=== PATIENT | male | born 1995 | race African-American/Black ===

== ENCOUNTER 2023-06-04 14:22 | Inpatient (IN) | payer BC, MEDICAID, SELFPAY ==
[2023-06-04 14:26] VITALS: BP 123/77; PULSE 75; RESP 17; TEMP 36.8; O2SAT 99
[2023-06-04 14:34] VITALS: BMI 38.0
--- NOTE | 2023-06-04 15:17 | PC.NURSE ---
PT WAS A DIRECT ADMIT FROM [facility] IN [place]. PT HAS SI WITH PLAN TO HANG SELF. PT STATES THAT HE IS ALSO HAVING THOUGHTS OF HURTING OTHER PEOPLE WITH NO PERSON SPECIFIC IN MIND. PT CURRENTLY ENDORSES AH/VH STATING I HEAR PEOPLE AND SEE SHADOW FIGURES. PT STATES THAT HE CANNOT MAKE OUT THE WORDS OF THE VOICES HE HEARS. PT STATES THAT HE WANTS REHAB FOR HIS DRINKING STATING HIS LAST DRINK WAS 06/02/23. HOWEVER HIS PREVIOUS HOSPITAL STATED THAT HE DID NOT HAVE ANY ALCOHOL IN HIS SYSTEM.
[2023-06-04] MEDS: hyDROXYzine 25 mg Capsule 50 MG PO (16:46)
[2023-06-04 20:23] VITALS: BP 107/61; PULSE 93; RESP 16; TEMP 36.9; O2SAT 97
[2023-06-04] MEDS: OLANZapine 10 mg TABLET PO (20:26)
[2023-06-04] MEDS: doxepin 25 mg Capsule PO (20:26)
[2023-06-05 06:00] VITALS: BP 124/77; PULSE 70; RESP 15; O2SAT 98
[2023-06-05] MEDS: sertraline 50 mg Tablet PO (08:29)
--- NOTE | 2023-06-05 09:31 | PC.NURSE ---
Patient states that he is not good . Patient reports SI, HI and severe depression. Patient denies plan to commit suicide or homicide at this time. Patient also reports AVH, hearing conversations and seeing people.
[2023-06-05] MEDS: acetaminophen 325 mg Tablet 650 MG PO (11:03)
[2023-06-05] MEDS: hyDROXYzine 25 mg Capsule 50 MG PO (13:44)
[2023-06-05] MEDS: docusate sodium 100 mg Capsule PO (13:44)
--- NOTE | 2023-06-05 13:45 | PC.NURSE ---
Patient reporting anxiety 10/10. Patient is unsure of the cause. Patient is visibly agitated. Administered 50mg Vistaril to patient. Patient pacing olivares to help alleviate anxiety.
[2023-06-05 14:00] VITALS: BP 145/83; PULSE 81; RESP 20; TEMP 36.9; O2SAT 98
[2023-06-05] MEDS: ibuprofen 600 mg Tablet PO (16:33)
--- NOTE | 2023-06-05 16:40 | W.PM.NPUH&PS ---
Providers/Chief Complaint Admitting Physician: Avelino Owusu MD Chief Complaint: SI/HI HPI NPU History of Present Illness Galo Jaime is a 27 year old -Kaz[place] male who presented to the emergency department in [facility] via ambulance with reports of having thoughts of killing himself. He had stated that he was thinking about wrapping a belt around his neck in order to end his life. He had reported that he had been hearing voices for several days and stated that he had had severe depression. Patient was transferred to the neuropsychiatric unit for further evaluation and treatment in [facility]. The patient had reported that he had been initially receiving treatment in [place]. He reports that approximately 1 month ago he had spoken with his outpatient provider about receiving help for his 2 pint per day use of alcohol for the past few years. The patient was referred to a [facility]-based program in [place] known as the [facility] and upon arriving there he reported that he was prevented from taking his medications to combat depression and auditory hallucinations. The patient had reported that the hallucinations had began several years ago after he had used methamphetamine for an extended period of time. He had stated that he had been off methamphetamine but the auditory hallucinations persisted. He had also endorsed having periods of paranoia as well. He states that he had relapsed in the last 6 months 1 time but had been drinking continuously for several years. The patient had reported that he had been hospitalized another time last week in [place] and was sent to another facility called [facility] which once again had prohibited the patient from receiving his medications. Patient had reported that he had left both of these he[facility]-based facilities and had stated that he needed to get help for his depression. He endorses continued suicidal ideation and reports that he continues to hear voices telling him to run away. He and also endorses paranoia. He reports sleep continuity disruption along with hypersomnia and low energy. He did not endorse any clear history of manic symptoms. He had endorsed some feelings of worthlessness. He had reported a past history of alcohol related withdrawal symptoms. Inpatient psychiatric history patient reports 3 hospitalizations in the past. He had endorsed a past history of suicide attempts. Outpatient psychiatric history: Patient had been receiving clinic through the [facility] in [facility] with previous trials on variety of medications including Seroquel, Latuda, Zoloft, and Zyprexa. Drug and alcohol history: He has a past history of drug and alcohol treatment on an outpatient basis but only recently on an inpatient basis while had a [facility]-based program over the last month. He has a history of alcohol related withdrawal symptoms. Medical history: Hypertension Surgeries: None Allergies: No known drug allergies Current medications: Doxepin 25 mg at night, Latuda 40 mg with food daily, olanzapine 10 mg at night, Zoloft 50 mg daily Legal history: None Social history: Patient was born in [facility] and raised by his biological parents. He is the youngest of 6 children 3 of whom were adopted. He had reported no history of sexual physical or emotional abuse. He had graduated from high school and did not attend college. He had worked in construction previously. He had had a history of problems with alcohol consumption beginning at the age of 23. He had reported occasional marijuana use in the past. He reports that his mother had of CHF in 2016 and that his father had in July 2022. He reports living with his extended family in [place] but reports that he had been most recently residing in [facility] in [facility] for less than a week. He has no children and has never been . history: None Meds NPU Home Medications Medication Instructions Recorded Confirmed Last Taken Type doxepin 25 mg capsule 25 mg PO BEDTIME 06/04/23 06/04/23 Unknown History lurasidone 40 mg tablet (Latuda) 40 mg PO QAM 06/04/23 06/04/23 Unknown History olanzapine 10 mg tablet 10 mg PO BEDTIME 06/04/23 06/04/23 Unknown History sertraline 50 mg tablet 50 mg PO DAILY 06/04/23 06/04/23 Unknown History Allergies Allergy/AdvReac Type Severity Reaction Status Date / Time No Known Allergies Allergy Verified 06/04/23 14:42 Mental Status Exam MSE Comments: He is a pleasant -Kaz[place] male who appeared his stated age with moderate distress. His hygiene was fair. There was no evidence of any abnormal involuntary motor movements tics or tremors appreciated. His speech was normal in regards to rate rhythm and prosody. His mood was described as depressed. His affect was restricted in range and mood-congruent. His thought process was linear logical and goal-directed. His thought content showed evidence of suicidal ideation with no active homicidal ideation reported. He endorsed auditory hallucinations and denied any visual hallucinations. He did at times appear to be responding to internal stimuli. There is no clear evidence of delusional thinking. His insight was poor. His judgment was poor. His impulse control appeared limited at this time. 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 ?1. Encourage individual, group and milieu therapy. ?2.Recommend sober living treatment at the highest level of care to which the patient is willing to commit. 3.Continue q-15 minute checks for safety.? 4. CIWA protocol 5. Restart previous medications including latuda, zyprexa and zoloft Involuntary Hold Information 96 Hour Hold: 96 Hour Involuntary Admission: No Attestations NPU Medical Necessity Statement*: Inpatient hospitalization is medically necessary and deemed to be the clinically appropriate intervention at this time. The patient will be monitored and medications will be initiated while making changes as indicated. Patient will be hospitalized for at least 2 midnights. The patient's likely length of stay will be 5 to 7 days. Coding Level of Care Code Acute Code for Chg Fwd Diagnoses Unspecified psychosis F29 Depression, unspecified F32.A Alcohol abuse F10.10 Methamphetamine abuse F15.10
--- NOTE | 2023-06-05 16:54 | PC.NURSE ---
added wrong patient vitals
[2023-06-05] MEDS: lurasidone 20 mg Tablet 40 MG PO (18:08)
[2023-06-05] MEDS: OLANZapine 5 mg ODT PO (18:34)
--- NOTE | 2023-06-05 18:35 | PC.NURSE ---
Patient reporting severe anxiety, attempts at coping were unsuccessful. Administered Zyprexa 5mg PO ODT to patient. Patient now resting in bed.
[2023-06-05] MEDS: OLANZapine 10 mg TABLET PO (20:51)
[2023-06-05] MEDS: doxepin 25 mg Capsule PO (20:51)
[2023-06-05 20:58] VITALS: BP 102/58; PULSE 82; RESP 17; TEMP 36.7; O2SAT 97
[2023-06-06 06:00] VITALS: BP 115/64; PULSE 84; RESP 16; O2SAT 98
[2023-06-06] MEDS: sertraline 50 mg Tablet PO (09:00)
--- NOTE | 2023-06-06 09:11 | PC.NURSE ---
During morning assessment, patient reporting mild depression related to the passing of his father in July of 2022. Patient denies thoughts of suicide, homicide, and anxiety. Patient sitting on bed, no distress noted.
[2023-06-06 14:00] VITALS: BP 135/74; PULSE 74; RESP 16; TEMP 36.8; O2SAT 93
[2023-06-06] MEDS: hyDROXYzine 25 mg Capsule 50 MG PO (15:10)
--- NOTE | 2023-06-06 15:40 | P.NPUPN_ITS ---
Subjective NPU Subjective: 27-year-old male admitted with psychosis and depression along with alcohol abuse and a past history of methamphetamine abuse. Patient had reported continued depressed mood. He had reported that he could not go to a rehabilitation facility that had provided no help for treatment of his psychosis and depression as the previous facility had demanded that the patient be placed off of medications. He had reported continued suicidal thoughts and depression. He had reported that he could continue to hear voices. He had expressed concern about weight gain associated with Zyprexa and was agreeable and consolidation of his antipsychotic medications. He had been friendly and redirectable on the milieu. He had reported diminished concentration. He reported no cravings for alcohol. He had reported some feelings of hopelessness at times. He had reported an extended history of difficulties with maintaining employment and managing his alcohol consumption. He had reported no withdrawal symptoms from alcohol today. Mental Status Exam MSE Comments: He is a pleasant -[place]old[place] male who appeared his stated age with moderate distress. His hygiene was fair. There was no evidence of any abnormal involuntary motor movements tics or tremors appreciated. His speech was normal in regards to rate rhythm and prosody. His mood was described as depressed. His affect remains restricted in range and mood-congruent. His thought process was linear logical and goal-directed. His thought content showed evidence of suicidal ideation with no active homicidal ideation reported. He endorsed command auditory hallucinations and denied any visual hallucinations. He did at times appear to be responding to internal stimuli. There is no clear evidence of delusional thinking. His insight was poor. His judgment was poor. His impulse control appeared limited at this time. 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 ?1. Encourage individual, group and milieu therapy. ?2.Recommend sober living treatment at the highest level of care to which the patient is willing to commit. 3.Continue q-15 minute checks for safety.? 4. CIWA protocol 5. Continue Zoloft to 50 mg daily, decrease Zyprexa to 7.5 mg at night and increase Latuda to 60 mg at dinnertime. 6. Seeking inpatient rehabilitation for addiction closer to the patient's area of residence. Involuntary Hold Information 96 Hour Hold: 96 Hour Involuntary Admission: No Attestations NPU Medical Necessity Statement*: Inpatient hospitalization is medically necessary and deemed to be the clinically appropriate intervention at this time. The patient will be monitored and medications will be initiated while making changes as indicated. The patient's likely length of stay will be 5 to 7 days. Coding Level of Care Code Acute Code for Chg Fwd Diagnoses Unspecified psychosis F29 Depression, unspecified F32.A Alcohol abuse F10.10 Methamphetamine abuse F15.10
[2023-06-06] MEDS: acetaminophen 325 mg Tablet 650 MG PO (16:28)
[2023-06-06] MEDS: OLANZapine 5 mg ODT PO (17:56)
[2023-06-06] MEDS: lurasidone 20 mg Tablet 60 MG PO (17:57)
[2023-06-06] MEDS: ibuprofen 600 mg Tablet PO (19:34)
[2023-06-06 20:06] VITALS: BP 138/74; PULSE 73; RESP 16; TEMP 36.5; O2SAT 96
[2023-06-06] MEDS: OLANZapine 5 mg TABLET 7.5 MG PO (20:43)
[2023-06-06] MEDS: doxepin 25 mg Capsule PO (20:43)
--- NOTE | 2023-06-07 04:09 | PC.NURSE ---
Isidoro isolating in his room this shift and slept the entire shift. Denies SI/HI/AVH. Patient is meal and medication compliant. Patient verbalized that he would contact staff if he has SI.
[2023-06-07 06:00] VITALS: BP 113/73; PULSE 60; RESP 16; O2SAT 97
[2023-06-07] MEDS: sertraline 50 mg Tablet PO (08:53)
[2023-06-07] MEDS: docusate sodium 100 mg Capsule PO (09:10)
[2023-06-07] MEDS: ibuprofen 600 mg Tablet PO (09:31)
--- NOTE | 2023-06-07 09:51 | PC.NURSE ---
Patient endorses si and hi. He states he currently has no plan and that his hi is not directed at any particular person. Patient endorses avh as well. He says he is seeing shadows still and that he hears voices telling him to hurt himself. Patient contracted for safety, agreed to let staff know if his thoughts or anxiety increased. Cooperative with assessment.
--- NOTE | 2023-06-07 13:12 | W.PM.NPUPNS ---
Subjective NPU Subjective: 27-year-old male admitted with psychosis and depression along with alcohol abuse and a past history of methamphetamine abuse. Patient had reported continued depressed mood. He had continued to report depressed mood. He had continued to hear voices. He reported that he had fleeting thoughts of suicide but was starting to feel better. He had reported some difficulties with concentration. He reported no cravings for alcohol currently. He had reported low energy. Patient reported struggles with increased appetite and weight gain with the initiation of Zyprexa and was motivated to consolidate his psychotropic medications if possible. Mental Status Exam MSE Comments: He is a pleasant -[place]ban[place] male who appeared his stated age with mild to moderate distress. His hygiene was fair. There was no evidence of any abnormal involuntary motor movements tics or tremors appreciated. His speech was normal in regards to rate rhythm and prosody. His mood was described as a little better. His affect remains restricted in range and mood incongruent. His thought process was linear logical and goal-directed. His thought content showed evidence of suicidal ideation with no active homicidal ideation reported. He endorsed auditory hallucinations that he described as less intense. He did at times appear to be responding to internal stimuli. There is no clear evidence of delusional thinking. His insight was improving. His judgment was poor. His impulse control appeared limited at this time. 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 ?1. Encourage individual, group and milieu therapy. ?2.Recommend sober living treatment at the highest level of care to which the patient is willing to commit. 3.Continue q-15 minute checks for safety.? 4. CIWA protocol 5. Increase Zoloft to 75 mg daily, decrease Zyprexa to 5 mg at night and increase Latuda to 60 mg at dinnertime. 6. Seeking inpatient rehabilitation for addiction closer to the patient's area of residence. Involuntary Hold Information 96 Hour Hold: 96 Hour Involuntary Admission: No Attestations NPU Medical Necessity Statement*: Inpatient hospitalization is medically necessary and deemed to be the clinically appropriate intervention at this time. The patient will be monitored and medications will be initiated while making changes as indicated. The patient's likely length of stay will be 5 to 7 days. Coding Level of Care Code Acute Code for Chg Fwd Diagnoses Unspecified psychosis F29 Depression, unspecified F32.A Alcohol abuse F10.10 Methamphetamine abuse F15.10
[2023-06-07] MEDS: hyDROXYzine 25 mg Capsule 50 MG PO ×2 (13:27→19:12)
[2023-06-07 13:38] VITALS: BP 166/83; PULSE 95; RESP 17; TEMP 37.1; O2SAT 96
[2023-06-07] MEDS: OLANZapine 5 mg ODT PO (16:12)
[2023-06-07] MEDS: acetaminophen 325 mg Tablet 650 MG PO (16:12)
--- NOTE | 2023-06-07 16:14 | PC.NURSE ---
NIKOS Dough Molder Hand- Patient states he is getting really worked up and has exhibited this through beginning to pace faster and clench his fists. When asked what he was getting worked up about he stated that he was just thinking about decisions he had made and people that were following him. However, he was unable to elaborate further. Patient was administered zyprexa 5mg odt.
[2023-06-07] MEDS: lurasidone 20 mg Tablet 60 MG PO (17:52)
[2023-06-07] MEDS: propranolol 20 mg Tablet 10 MG PO (19:11)
[2023-06-07] MEDS: doxepin 25 mg Capsule PO (19:12)
[2023-06-07] MEDS: OLANZapine 5 mg TABLET PO (19:12)
[2023-06-07] MEDS: trazodone 50 mg Tablet PO (19:12)
[2023-06-07 19:51] VITALS: BP 152/98; PULSE 102; RESP 18; TEMP 37; O2SAT 97
[2023-06-08 06:00] VITALS: BP 103/65; PULSE 62; RESP 18; TEMP 37.2; O2SAT 92
[2023-06-08] MEDS: propranolol 20 mg Tablet 10 MG PO ×2 (08:30→20:15)
[2023-06-08] MEDS: sertraline 50 mg Tablet 75 MG PO (08:30)
[2023-06-08] MEDS: acetaminophen 325 mg Tablet 650 MG PO (09:17)
--- NOTE | 2023-06-08 13:22 | P.NPUPN_ITS ---
Subjective NPU Subjective: 27-year-old male admitted with psychosis and depression along with alcohol abuse and a past history of methamphetamine abuse. He had reported difficulties falling asleep with this reduction in olanzapine. He had reported that he continued to feel paranoid. He reported no cravings for alcohol. He reports continued depression. Patient reported no side effects from the Latuda. He had reported that doxepin had previously helped him with sleep. He had reported having chronic problems with anxiety including chronic worry and difficulties with being in crowds. Staff notes the patient was friendly and cooperative on the milieu. He had reported some difficulties with concentration. Mental Status Exam MSE Comments: He is a pleasant -[place] Islander male who appeared his stated age in moderate distress. His hygiene was fair. There was no evidence of any abnormal involuntary motor movements tics or tremors appreciated. His speech was normal in regards to rate rhythm and prosody except for brief periods of increased latency in speech. His mood was described as still depressed. His affect remains restricted in range and mood congruent. His thought process was linear logical and goal-directed. His thought content showed evidence of suicidal ideation with no active homicidal ideation reported. He continued to endorse auditory hallucinations that was not command in nature. He did at times appear to be responding to internal stimuli. There is no clear evidence of delusional thinking. His insight was improving. His judgment was poor. His impulse control appeared limited at this time. 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 ?1. Encourage individual, group and milieu therapy. ?2.Recommend sober living treatment at the highest level of care to which the patient is willing to commit. 3.Continue q-15 minute checks for safety.? 4. CIWA protocol 5. Increase Zoloft to 100 mg daily, decrease Zyprexa to 5 mg at night and increase Latuda to 60 mg at dinnertime. 6. Seeking inpatient rehabilitation for addiction closer to the patient's area of residence. Involuntary Hold Information 96 Hour Hold: 96 Hour Involuntary Admission: No Attestations NPU Medical Necessity Statement*: Inpatient hospitalization is medically necessary and deemed to be the clinically appropriate intervention at this time. The patient will be monitored and medications will be initiated while making changes as indicated. The patient's likely length of stay will be 5 to 7 days. Coding Level of Care Code Acute Code for Chg Fwd Diagnoses Unspecified psychosis F29 Depression, unspecified F32.A Alcohol abuse F10.10 Methamphetamine abuse F15.10
[2023-06-08 14:00] VITALS: BP 142/81; PULSE 90; RESP 17; TEMP 37; O2SAT 99
[2023-06-08] MEDS: hyDROXYzine 25 mg Capsule 50 MG PO (15:54)
[2023-06-08] MEDS: lurasidone 20 mg Tablet 60 MG PO (18:06)
[2023-06-08 19:39] VITALS: BP 112/72; PULSE 88; RESP 18; TEMP 37.1; O2SAT 92
[2023-06-08] MEDS: OLANZapine 5 mg TABLET PO (20:15)
[2023-06-08] MEDS: doxepin 25 mg Capsule PO (20:15)
[2023-06-09 06:00] VITALS: BP 112/75; PULSE 70; RESP 16; O2SAT 94
[2023-06-09] MEDS: propranolol 20 mg Tablet 10 MG PO ×2 (08:07→20:41)
[2023-06-09] MEDS: sertraline 50 mg Tablet 100 MG PO (08:07)
[2023-06-09 14:00] VITALS: BP 118/72; PULSE 59; RESP 16; TEMP 36.6; O2SAT 99
--- NOTE | 2023-06-09 14:44 | W.PM.NPUPNS ---
Subjective NPU Subjective: 27-year-old male admitted with psychosis and depression along with alcohol abuse and a past history of methamphetamine abuse. Patient had reported improved sleep despite a reduction in olanzapine to 5 mg at night. He had reported feeling less paranoid but continued to report feeling depressed. He had reported that the voices were better controlled. He had reported cravings for alcohol and denied any past history of medication trials to manage cravings. The patient had continued to show efforts to find an inpatient substance abuse facility that took his insurance. He had acknowledged that a facility that rejected his psychotropic medications would not be a good fit for him. He had reported a long history of having problems with managing his anxiety as well. He had reported infrequent suicidal thoughts now. Mental Status Exam MSE Comments: He is a pleasant -Jamaican male who appeared his stated age in moderate distress. His hygiene was fair. There was no evidence of any abnormal involuntary motor movements tics or tremors appreciated. His speech was normal in regards to rate rhythm and prosody with no latency of speech noted. His mood was described as depressed. His affect remains restricted in range and mood congruent. His thought process was linear logical and goal-directed. His thought content showed evidence of suicidal ideation with no active homicidal ideation reported. He reported infrequent auditory hallucinations that he described as better controlled. He did at times appear to be responding to internal stimuli. There is no clear evidence of delusional thinking. His insight was improving. His judgment was poor. His impulse control appeared limited at this time. 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 ?1. Encourage individual, group and milieu therapy. ?2.Recommend sober living treatment at the highest level of care to which the patient is willing to commit. 3.Continue q-15 minute checks for safety.? 4. CIWA protocol 5. Continue Zoloft to 100 mg daily, continue Zyprexa to 5 mg at night and continue Latuda at 60 mg at dinnertime. 6. Seeking inpatient rehabilitation for addiction closer to the patient's area of residence. 7. Add Naltrexone 50mg daily to target alcohol cravings with possible use of vivitrol. Involuntary Hold Information 96 Hour Hold: 96 Hour Involuntary Admission: No Attestations NPU Medical Necessity Statement*: Inpatient hospitalization is medically necessary and deemed to be the clinically appropriate intervention at this time. The patient will be monitored and medications will be initiated while making changes as indicated. The patient's likely length of stay will be 5 to 7 days. Coding Level of Care Code Acute Code for Chg Fwd Diagnoses Unspecified psychosis F29 Depression, unspecified F32.A Alcohol abuse F10.10 Methamphetamine abuse F15.10
[2023-06-09] MEDS: naltrexone hcl 50 mg Tablet PO (15:27)
[2023-06-09 16:12] LABS: SARS Covid-2 Antigen Negative (Negative)
[2023-06-09 17:00] LABS: Amphetamines Screen Urine Negative (Negative); Barbiturates Screen Urine Negative (Negative); Benzodiazepines Screen Urine Positive (Negative); Cocaine Screen Urine Negative (Negative); Opiate Screen Urine Negative (Negative); PCP Screen Urine Negative (Negative); THC Screen Urine Negative (Negative)
[2023-06-09] MEDS: hyDROXYzine 25 mg Capsule 50 MG PO (17:09)
[2023-06-09] MEDS: lurasidone 20 mg Tablet 60 MG PO (18:21)
[2023-06-09 19:46] VITALS: BP 122/66; PULSE 67; RESP 17; TEMP 37.2; O2SAT 91
[2023-06-09] MEDS: doxepin 25 mg Capsule PO (20:41)
[2023-06-09] MEDS: OLANZapine 5 mg TABLET PO (20:42)
[2023-06-10 06:00] VITALS: BP 109/69; PULSE 69; RESP 16; O2SAT 98
[2023-06-10] MEDS: sertraline 50 mg Tablet 100 MG PO (08:19)
[2023-06-10] MEDS: naltrexone hcl 50 mg Tablet PO (08:19)
[2023-06-10] MEDS: propranolol 20 mg Tablet 10 MG PO ×2 (08:19→21:22)
[2023-06-10 13:58] VITALS: BP 107/63; PULSE 62; RESP 15; TEMP 36.9; O2SAT 97
[2023-06-10] MEDS: hyDROXYzine 25 mg Capsule 50 MG PO (15:13)
[2023-06-10] MEDS: acetaminophen 325 mg Tablet 650 MG PO (15:13)
--- NOTE | 2023-06-10 16:15 | P.NPUPN_ITS ---
Subjective NPU Subjective: 27-year-old male admitted with psychosis and depression along with alcohol abuse and a past history of methamphetamine abuse. Patient had reported improved sleep despite a reduction in olanzapine to 5 mg at night. He had expressed desire to enter into an alcohol abuse program near his home. He had reported no side effects from the initiation of naltrexone. He reported no worsening sleep or frequent awakenings at night with the Zyprexa at 5 mg. He remained motivated to reduce this medication. He reported no side effects from the Latuda at this time. He had reported depressed mood but stated that he was starting to feel better. He had reported continued cravings for alcohol. The patient reported that his hallucinations were better controlled today. Mental Status Exam MSE Comments: He is a pleasant -Bulgarian male who appeared his stated age in mild distress. His hygiene was fair. There was no evidence of any abnormal involuntary motor movements tics or tremors appreciated. His speech was normal in regards to rate rhythm and prosody with no latency of speech noted. His mood was described as depressed. His affect remains restricted in range and mood congruent. His thought process was linear logical and goal-directed. His thought content showed no evidence of suicidal ideation with no active homicidal ideation reported. He did not appear to be responding to internal stimuli today. He had reported that the voices were less frequent and quiet. There is no clear evidence of delusional thinking. His insight was improving. His judgment was poor. His impulse control appeared limited at this time. 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 ?1. Encourage individual, group and milieu therapy. ?2.Recommend sober living treatment at the highest level of care to which the patient is willing to commit. 3.Continue q-15 minute checks for safety.? 4. CIWA protocol 5. Continue Zoloft to 100 mg daily, Reduce zyprexa to 2.5mg at night and increase latuda to 80 mg at dinnertime. 6. Seeking inpatient rehabilitation for addiction closer to the patient's area of residence. 7. Continue Naltrexone 50mg daily to target alcohol cravings with possible use of vivitrol. Involuntary Hold Information 96 Hour Hold: 96 Hour Involuntary Admission: No Attestations NPU Medical Necessity Statement*: Inpatient hospitalization is medically necessary and deemed to be the clinically appropriate intervention at this time. The patient will be monitored and medications will be initiated while making changes as indicated. The patient's likely length of stay will be 5 to 7 days. Coding Level of Care Code Acute Code for Chg Fwd Diagnoses Unspecified psychosis F29 Depression, unspecified F32.A Alcohol abuse F10.10 Methamphetamine abuse F15.10
[2023-06-10] MEDS: lurasidone 20 mg Tablet 60 MG PO (17:39)
[2023-06-10 21:18] VITALS: BP 109/63; PULSE 85; RESP 18; TEMP 36.7; O2SAT 96
[2023-06-10] MEDS: OLANZapine 5 mg TABLET 2.5 MG PO (21:21)
[2023-06-10] MEDS: trazodone 50 mg Tablet PO (21:21)
[2023-06-10] MEDS: doxepin 25 mg Capsule PO (21:22)
[2023-06-11 06:00] VITALS: BP 99/63; PULSE 54; RESP 20; TEMP 36.7; O2SAT 97
[2023-06-11] MEDS: sertraline 50 mg Tablet 100 MG PO (08:55)
[2023-06-11] MEDS: naltrexone hcl 50 mg Tablet PO (08:55)
[2023-06-11] MEDS: propranolol 20 mg Tablet 10 MG PO (08:55)
[2023-06-11] MEDS: hyDROXYzine 25 mg Capsule 50 MG PO ×2 (09:29→15:24)
[2023-06-11] MEDS: acetaminophen 325 mg Tablet 650 MG PO ×2 (09:29→18:11)
[2023-06-11 13:36] VITALS: BP 105/57; PULSE 89; RESP 17; TEMP 37.1; O2SAT 96
[2023-06-11] MEDS: lurasidone 20 mg Tablet 60 MG PO (17:24)
--- NOTE | 2023-06-11 17:35 | PC.NURSE ---
Pt refused to take a cup of coffee from a [employer], he stated that yesterday she gave me a cup that made me have a headache . This nurse poured a new cup from the same pot and gave it to the pt. Pt is still showing signs of being paranoid.
[2023-06-11] MEDS: lurasidone 20 mg Tablet PO (18:12)
[2023-06-11] MEDS: OLANZapine 5 mg TABLET 2.5 MG PO (21:19)
[2023-06-11] MEDS: doxepin 25 mg Capsule PO (21:19)
[2023-06-11] MEDS: trazodone 50 mg Tablet PO (21:19)
--- NOTE | 2023-06-11 21:22 | P.NPUPN_ITS ---
Subjective NPU Subjective: 27-year-old male admitted with psychosis and depression along with alcohol abuse and a past history of methamphetamine abuse. Patient reports improved sleep, no insomnia with reduction of zyprexa. Patient agreeable to [facility]ctor based substance abuse treatment program through [facility]. Patient reports some alcohol cravings but reports feeling better. He was more social and acknowledged feeling less paranoid and less depressed. No manic symptoms endorsed. Mental Status Exam MSE Comments: He is a pleasant -Yemeni male who appeared his stated age in mild distress. His hygiene was fair. There was no evidence of any abnormal involuntary motor movements tics or tremors appreciated. His speech was normal in regards to rate rhythm and prosody with no latency of speech noted. His mood was described as bettre. His affect appears slightly less flat. His thought process was linear logical and goal-directed. His thought content showed no evidence of suicidal ideation with no active homicidal ideation reported. He did not appear to be responding to internal stimuli today. He had reported no auditory or visual hallucinations. There is no clear evidence of delusional thinking. His insight was improving. His judgment was fair. His impulse control appeared fair at this time. 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 ?1. Encourage individual, group and milieu therapy. ?2.Recommend sober living treatment at the highest level of care to which the patient is willing to commit. 3.Continue q-15 minute checks for safety.? 4. CIWA protocol 5. Continue Zoloft to 100 mg daily, Reduce zyprexa to 2.5mg at night and increase latuda to 80 mg at dinnertime. 6. Seeking inpatient rehabilitation for addiction closer to the patient's area of residence.-likely discharge tommorow. 7. Continue Naltrexone 50mg daily to target alcohol cravings with possible use of vivitrol. Involuntary Hold Information 96 Hour Hold: 96 Hour Involuntary Admission: No Attestations NPU Medical Necessity Statement*: Inpatient hospitalization is medically necessary and deemed to be the clinically appropriate intervention at this time. The patient will be monitored and medications will be initiated while making changes as indicated. The patient's likely length of stay will be 1-2 days. Coding Level of Care Code Acute Code for Chg Fwd Diagnoses Unspecified psychosis F29 Depression, unspecified F32.A Alcohol abuse F10.10 Methamphetamine abuse F15.10
[2023-06-11 21:34] VITALS: BP 106/63; PULSE 78; RESP 16; TEMP 36.8; O2SAT 96
--- NOTE | 2023-06-11 21:35 | PC.NURSE ---
PT LAYING DOWN IN BED WHEN ASSESSMENT COMPLETED. PT STATES HE DOESN''T WANT TO DISCHARGE TOMORROW DUE TO STILL FEELING VERY DEPRESSED. PT WAS INFORMED HIS MEDICATIONS WERE ADJUSTED AND SOMETIMES IT TAKES TIME TO FEEL THE EFFECT OF MEDICATIONS. PT IS OBSERVED TO HAVE A FLAT AFFECT. DENIES PAIN. DENIES SI/HI AND AVH AT THIS TIME. ALL QUESTIONS ANSWERED AND SUPPORT WAS VOICED. PT VERBALIZED UNDERSTANDING.
--- NOTE | 2023-06-11 23:34 | PC.NURSE ---
PT REQUESTS MEDICATION TO HELP HIM SLEEP. PT WAS GIVEN TRAZODONE 50 MG PO ORDERED. PT THEN WENT TO BED AND IS CURRENTLY RESTING WITH EYES CLOSED.
[2023-06-12 06:00] VITALS: RESP 17
[2023-06-12] MEDS: sertraline 50 mg Tablet 100 MG PO (08:37)
[2023-06-12] MEDS: propranolol 20 mg Tablet 10 MG PO (08:37)
[2023-06-12] MEDS: naltrexone hcl 50 mg Tablet PO (08:37)
[2023-06-12] MEDS: nicotine 2 mg Gum BUCCAL (09:57)
--- NOTE | 2023-06-12 11:34 | W.PM.NPUDCS ---
Diagnoses at Discharge Discharge Diagnosis (1) Unspecified psychosis: Status: Acute (2) Depression, unspecified: Status: Acute (3) Alcohol abuse: Status: Acute (4) Methamphetamine abuse: Status: Resolved Reason for Visit Reason for Visit: SI/HI Brief History: History of Present Illness Galo Jaime is a 27 year old -Colombian male who presented to the emergency department in [facility] via ambulance with reports of having thoughts of killing himself. He had stated that he was thinking about wrapping a belt around his neck in order to end his life. He had reported that he had been hearing voices for several days and stated that he had had severe depression. Patient was transferred to the neuropsychiatric unit for further evaluation and treatment in [facility]. The patient had reported that he had been initially receiving treatment in [place]. He reports that approximately 1 month ago he had spoken with his outpatient provider about receiving help for his 2 pint per day use of alcohol for the past few years. The patient was referred to a hector-based program in [place] known as the [facility] and upon arriving there he reported that he was prevented from taking his medications to combat depression and auditory hallucinations. The patient had reported that the hallucinations had began several years ago after he had used methamphetamine for an extended period of time. He had stated that he had been off methamphetamine but the auditory hallucinations persisted. He had also endorsed having periods of paranoia as well. He states that he had relapsed in the last 6 months 1 time but had been drinking continuously for several years. The patient had reported that he had been hospitalized another time last week in [place] and was sent to another facility called [facility] which once again had prohibited the patient from receiving his medications. Patient had reported that he had left both of these hector-based facilities and had stated that he needed to get help for his depression. He endorses continued suicidal ideation and reports that he continues to hear voices telling him to run away. He and also endorses paranoia. He reports sleep continuity disruption along with hypersomnia and low energy. He did not endorse any clear history of manic symptoms. He had endorsed some feelings of worthlessness. He had reported a past history of alcohol related withdrawal symptoms. Inpatient psychiatric history patient reports 3 hospitalizations in the past. He had endorsed a past history of suicide attempts. Outpatient psychiatric history: Patient had been receiving [place] [facility] [place] [facility] [place] previous trials on variety of medications including Seroquel, Latuda, Zoloft, and Zyprexa. Drug and alcohol history: He has a past history of drug and alcohol treatment on an outpatient basis but only recently on an inpatient basis while had a hector-based program over the last month. He has a history of alcohol related withdrawal symptoms. Medical history: Hypertension Surgeries: None Allergies: No known drug allergies Current medications: Doxepin 25 mg at night, Latuda 40 mg with food daily, olanzapine 10 mg at night, Zoloft 50 mg daily Legal history: None Social history: Patient was born in [facility] and raised by his biological parents. He is the youngest of 6 children 3 of whom were adopted. He had reported no history of sexual physical or emotional abuse. He had graduated from high school and did not attend college. He had worked in construction previously. He had had a history of problems with alcohol consumption beginning at the age of 23. He had reported occasional marijuana use in the past. He reports that his mother had of CHF in 2016 and that his father had in July 2022. He reports living with his extended family in [place] but reports that he had been most recently residing in [facility] for less than a week. He has no children and has never been . history: None Hospital Course Hospital Course He slowly acclimated to the individual, group and milieu therapies provided.? He came in with addiction issues as well as mental health challenges. During the stay tapered and his Latuda was titrated. Zyprexa down to 2.5 mg p.o. nightly and Latuda up to 80 mg daily. Additionally his Zoloft was increased to 100 mg p.o. daily. He demonstrated significant improvement and was able to contract for safety outside the hospital prior to discharge.? He worked with the social work team and was able to secure a sober living treatment facility to which he was discharged. At the outside hospital, patient had routine laboratory studies which were within normal limits except for few outliers.? Additionally there was a general medical evaluation which was also within normal limits and revealed no new acute processes. Discharge Summary: At the time of discharge, he denied psychosis or lethality .? Mood and anxiety were well managed.? Patient endorsed a plan to avoid all drugs of abuse and follow-up with the aftercare recommendations of the treatment team.? Patient was evaluated and deemed to be absent credible lethality, and had achieved the maximum benefit from an inpatient hospitalization, so was discharged. Involuntary Hold Information 96 Hour Hold: 96 Hour Involuntary Admission: No Mental Status Exam MSE Comments: He is a pleasant -Colombian male who appeared his stated age in mild distress. His hygiene was fair. There was no evidence of any abnormal involuntary motor movements tics or tremors appreciated. His speech was normal in regards to rate rhythm and prosody with no latency of speech noted. His mood was described as better. His affect appears slightly less flat. His thought process was linear logical and goal-directed. His thought content showed no evidence of suicidal ideation with no active homicidal ideation reported. He did not appear to be responding to internal stimuli today. He had reported no auditory or visual hallucinations. There is no clear evidence of delusional thinking. His insight was improving. His judgment was fair. His impulse control appeared fair at this time. Discharge Data Studies Completed and Pending: Laboratory Results Urine Opiates Scre en Negative ng/mL (N egative) 06/09/23 15:05 Ur Barbiturates Sc reen Negative ng/mL (N egative) 06/09/23 15:05 Ur Phencyclidine S crn Negative ng/mL (N egative) 06/09/23 15:05 Ur Amphetamines Sc reen Negative ng/mL (N egative) 06/09/23 15:05 U Benzodiazepines Scrn Positive ng/mL (N egative) H 06/09/23 15:05 Urine Cocaine Scre en Negative ng/mL (N egative) 06/09/23 15:05 U Marijuana (THC) Screen Negative ng/mL (N egative) 06/09/23 15:05 SARS-CoV-2 Ag (Rap id) Negative (Negati ve) 06/09/23 14:25 Vitals: Last Vital Signs Temp 98.3 F 06/11/23 21:34 Pulse 78 06/11/23 21:34 Resp 17 06/12/23 06:00 BP 106/63 06/11/23 21:34 Pulse Ox 96 06/11/23 21:34 O2 Del Method Room Air 06/11/23 21:34 Discharge Plan Discharge Patient Disposition: Home Condition: Stable Prescriptions: New olanzapine 5 mg Tablet 2.5 mg PO BEDTIME 30 Days Qty: 15 1RF naltrexone 50 mg Tablet 50 mg PO DAILY 30 Days Qty: 30 1RF propranolol 20 mg Tablet 10 mg PO 0900,2100 30 Days Qty: 30 1RF sertraline 50 mg Tablet 100 mg PO DAILY 30 Days Qty: 15 1RF Latuda 20 mg Tablet 80 mg PO 1800 30 Days Qty: 120 1RF Continued doxepin 25 mg Capsule 25 mg PO BEDTIME 30 Days Qty: 30 1RF Discontinued olanzapine 10 mg Tablet 10 mg PO BEDTIME sertraline 50 mg Tablet 50 mg PO DAILY lurasidone [Latuda] 40 mg Tablet 40 mg PO QAM Rx Instructions: must administer with food (at least 350 calories) Discharge Orders: Discharge Order (Routine); Ordered 06/12/23 Ordered By: Yonny Santiago [facility] - 06/18/23 10:45 am (Initial appointment) [facility] [employer] [Other] - 06/12/23 Discharge Diet: Regular Discharge Activity: Resume usual activity Patient Instructions: Depression (DC), Suicide Prevention (DC), Opioid Safety Discharge Attestations NPU Time Spent in Discharge Care*: less than 30 min Specific Discharge Activities: Specific discharge activities: educating patient, discussing with correctional case manager/social workers/dc planners, documenting/other paperwork and evaluating patient/reviewing data Coding Level of Care Code Acute Chg FW DC note Diagnoses Unspecified psychosis F29 Depression, unspecified F32.A Alcohol abuse F10.10 Methamphetamine abuse F15.10
[2023-06-12 11:54] VITALS: RESP 17
[2023-06-12] MEDS: hyDROXYzine 25 mg Capsule 50 MG PO (13:08)
== END 2023-06-12 13:25 | disposition home or self-care (01) | DRG 885 ==
PROVIDERS: Admitting Provider Psychiatry & Neurology Psychiatry; Visit Provider Psychiatry & Neurology Psychiatry
DX: F29 Unspecified psychosis not due to a substance or known physiological condition (principal); R45.851 Suicidal ideations; R44.0 Auditory hallucinations; F10.10 Alcohol abuse, uncomplicated; F32.A Depression, unspecified; F15.11 Other stimulant abuse, in remission; Z91.A4 Caregiver's other noncompliance with patient's medication regimen
CPT/HCPCS: 80306; 87426; 97150; 97165; 99238

== ENCOUNTER 2024-03-28 18:50 | Inpatient (IN) | payer MEDICAID, SELFPAY ==
[2024-03-28 19:00] VITALS: BP 124/79; PULSE 77; RESP 16; TEMP 36.8; O2SAT 99; BMI 32.9
[2024-03-28] MEDS: LORazepam 2 mg Tablet PO (19:27)
--- NOTE | 2024-03-28 19:28 | W.ED.PSYCHS ---
HPI - Psych General: Chief Complaint: Psychiatric Symptoms Stated Complaint: MHE Time Seen by Provider: 03/28/24 19:11 History of Present Illness: Patient brought in by police department with complaints of homicidal and suicidal ideation. Patient stated he started having these ideas a couple weeks ago. Patient has been off of his psych meds because been unable to get him. He has not taken them for months. He has been hearing voices. He has a flat affect he has calm at present he is willing to go inpatient to get help. Review of Systems General: Reports: 10 or more systems reviewed and unremarkable except in HPI and below Physical Exam Const: COMMON NORMALS: no acute distress, average body habitus, patient oriented x3, no limitations, healthy appearing, alert and well nourished Neck/C-Spine: COMMON NORMALS: no JVD Chest: COMMONS NORMALS: normal inspection of the chest and normal palpation of entire chest wall Resp: COMMON NORMALS: normal respiratory effort, No retractions, No use of accessory muscles and clear to auscultation bilaterally AUSCULTATION: clear to auscultation bilaterally Cardio: COMMON NORMALS: no JVD, regular rate, regular rhythm, S1 normal heart sound present, S2 normal heart sound present, No gallops present (Cardio), No clicks present (Cardio), No murmurs present (Cardio) and No rub (Cardio) RATE: regular rate RHYTHM: regular rhythm HEART SOUNDS: S1 normal heart sound present and S2 normal heart sound present GI: COMMON NORMALS: Normal to inspection, nondistended, normoactive bowel sounds present, Soft to palpation, non-tender and No hepatosplenomegaly present PALPATION: Yes Soft to palpation and Yes No hepatosplenomegaly present Neuro: COMMON NORMALS: patient oriented x3 SENSORIUM/ORIENTATION: Yes alert Course Vital Signs: Vital signs: Vital Signs Temperature 98.2 F 03/28/24 19:00 Pulse Rate 77 03/28/24 19:00 Respiratory Rate 16 03/28/24 19:00 Blood Pressure 124/79 03/28/24 19:00 Pulse Oximetry 99 03/28/24 19:00 Oxygen Delivery Me thod Room Air 03/28/24 19:00 [facility] - Psych Medical Decision Making Patient will be worked up from a psychiatric medical clearance standpoint once medically cleared anticipate admission to MPU for further evaluation and treatment. Dr. Santiago was consulted who agreed to place patient in MPU for further evaluation and treatment. Differential Diagnosis Likely suicidal ideation Lab Data 03/28/24 19:46 03/28/24 19:46 Laboratory Results WBC 8.92 10^3/uL (3.29-11.43) 03/28/24 19:46 RBC 4.31 10^6/uL (3.85-5.65) 03/28/24 19:46 Hgb 12.50 g/dL (11.27-16.99) 03/28/24 19:46 Hct 38.2 % (37-53) 03/28/24 19:46 MCV 88.6 fl (82-101) 03/28/24 19:46 MCH 29.0 pg (27-33) 03/28/24 19:46 MCHC 32.7 g/dL (30-55) 03/28/24 19:46 RDW 13.0 % (12.1-15.1) 03/28/24 19:46 Plt Count 305 10^3/cmm (157-399) 03/28/24 19:46 MPV 9.6 fL (7.4-10.4) 03/28/24 19:46 Neut % (Auto) 71.6 % 03/28/24 19:46 Lymph % (Auto) 21.4 % 03/28/24 19:46 [place] % (Auto) 5.4 % 03/28/24 19:46 Eos % (Auto) 1.0 % 03/28/24 19:46 Baso % (Auto) 0.3 % 03/28/24 19:46 Neut # (Auto) 6.38 10^3/uL (1.8-7.7) 03/28/24 19:46 Lymph # (Auto) 1.9 10^3/uL (0.8-4.8) 03/28/24 19:46 [place] # (Auto) 0.5 10^3/uL (0.2-0.9) 03/28/24 19:46 Eos # (Auto) 0.1 10^3/uL (0.0-0.8) 03/28/24 19:46 Baso # (Auto) 0.0 10^3/uL (0.0-0.1) 03/28/24 19:46 Nucleated RBC % (auto) 0 % 03/28/24 19:46 Nucleated RBCs # 0.0 /100WBC 03/28/24 19:46 Sodium 138 mmol/L (136-145) 03/28/24 19:46 Potassium 3.9 mmol/L (3.5-5.1) 03/28/24 19:46 Chloride 101 mmol/L (98-107) 03/28/24 19:46 Carbon Dioxide 26 mmol/L (22-29) 03/28/24 19:46 Anion Gap 14.9 (5-19) 03/28/24 19:46 BUN 9 mg/dL (6-20) 03/28/24 19:46 Creatinine 1.0 mg/dL (0.7-1.2) 03/28/24 19:46 GFR Calculation 109.3 mL/min (90-130) 03/28/24 19:46 Glucose 99 mg/dL (65-115) 03/28/24 19:46 Calculated Osmolality 285 mOsm/kg (285-295) 03/28/24 19:46 Calcium 9.0 mg/dL (8.5-10.5) 03/28/24 19:46 Total Bilirubin 0.4 mg/dL (0.15-1.2) 03/28/24 19:46 AST 18 U/L (0-40) 03/28/24 19:46 ALT 15 U/L (0-41) 03/28/24 19:46 Alkaline Phosphatase 94 U/L (40-130) 03/28/24 19:46 Total Protein 8.0 g/dL (6.6-8.7) 03/28/24 19:46 Albumin 4.4 g/dL (3.5-5.2) 03/28/24 19:46 Globulin 3.6 g/dL (1.3-4.6) 03/28/24 19:46 Urine Color Yellow (Yellow) 03/28/24 19:50 Urine Appearance Clear (CLEAR) 03/28/24 19:50 Urine pH 7 (5-7) 03/28/24 19:50 Ur Specific [place] 1.005 (1.005-1.030) 03/28/24 19:50 Urine Protein Neg (Negative) 03/28/24 19:50 Urine Glucose (UA) Norm (Normal) 03/28/24 19:50 Urine Ketones Negative (Negative) 03/28/24 19:50 Urine Blood Neg (Negative) 03/28/24 19:50 Urine Nitrate Negative (Negative) 03/28/24 19:50 Urine Bilirubin Neg (Negative) 03/28/24 19:50 Urine Urobilinogen Neg mg/dL (Negative) 03/28/24 19:50 Ur Leukocyte Esterase Trace (Negative) H 03/28/24 19:50 Urine RBC 0-4 /hpf (0-2) H 03/28/24 19:50 Urine WBC 0-4 /hpf (0-5) H 03/28/24 19:50 Ur Squamous Epith Cells 0-4 /hpf (0-5) H 03/28/24 19:50 Amorphous Sediment Not Reportable 03/28/24 19:50 Urine Bacteria Trace /hpf (NONE) 03/28/24 19:50 Salicylates 0.9 mg/dL (3-10) L 03/28/24 19:46 Urine Opiates Screen Negative ng/mL (Negative) 03/28/24 19:50 Acetaminophen < 5.0 ug/mL (10-30) L 03/28/24 19:46 Ur Barbiturates Screen Negative ng/mL (Negative) 03/28/24 19:50 Ur Phencyclidine Scrn Negative ng/mL (Negative) 03/28/24 19:50 Ur Amphetamines Screen Negative ng/mL (Negative) 03/28/24 19:50 U Benzodiazepines Scrn Negative ng/mL (Negative) 03/28/24 19:50 Urine Cocaine Screen Negative ng/mL (Negative) 03/28/24 19:50 U Marijuana (THC) Screen Negative ng/mL (Negative) 03/28/24 19:50 Ethyl Alcohol < 10 mg/dL (0-10) 03/28/24 19:46 No radiology studies performed this visit Discharge Plan Discharge Patient Disposition: Admitted As Inpatient Clinical Impression: Suicidal ideation Condition: Stable Coding Level of Care Code ED Technology Teacher for Jessica Pleitez
[2024-03-28 19:56] LABS: Basophils % 0.3 %; Eosinophils # 0.1 10^3/uL (0.0-0.8); Hematocrit 38.2 % (37-53); Lymphocytes # 1.9 10^3/uL (0.8-4.8); Lymphocytes % 21.4 %; Mean Corpuscular HGB Conc 32.7 g/dL (30-55); Mean Corpuscular Volume 88.6 fl (82-101); Mean Platelet Volume 9.6 fL (7.4-10.4); Monocytes # 0.5 10^3/uL (0.2-0.9); Monocytes % 5.4 %; Neutrophils # 6.38 10^3/uL (1.8-7.7); Neutrophils % 71.6 %; Nucleated Red Blood Cells % 0 %; Platelet Count 305 10^3/cmm (157-399); Red Blood Count 4.31 10^6/uL (3.85-5.65); White Blood Count 8.92 10^3/uL (3.29-11.43)
[2024-03-28 20:07] LABS: Add Urine Microscopic? YES; Bilirubin Urine Neg (Negative); Blood Urine Neg (Negative); Glucose Urine UA Norm (Normal); Ketones Urine Negative (Negative); Leukocyte Esterase Urine Trace (Negative); Nitrate Urine Negative (Negative); Protein Urine Neg (Negative); RBC Urine 0-4 /hpf (0-2); Specific Gravity, Urine 1.005 (1.005-1.030); Squamous Epithelial Cell Urine 0-4 /hpf (0-5); Urine Appearance Clear (CLEAR); Urine Color Yellow (Yellow); Urobilinogen Urine Neg (Negative); WBC Urine 0-4 /hpf (0-5); pH Urine 7 (5-7)
[2024-03-28 20:08] LABS: Bacteria Urine TRACE /hpf
[2024-03-28 20:09] LABS: Amphetamines Screen Urine Negative (Negative); Barbiturates Screen Urine Negative (Negative); Benzodiazepines Screen Urine Negative (Negative); Cocaine Screen Urine Negative (Negative); Opiate Screen Urine Negative (Negative); PCP Screen Urine Negative (Negative); THC Screen Urine Negative (Negative)
[2024-03-28 20:13] LABS: Alanine Aminotransferase 15 U/L (0-41); Albumin Level 4.4 g/dL (3.5-5.2); Alkaline Phosphatase 94 U/L (40-130); Anion Gap 14.9 (5-19); Aspartate Amino Transferase 18 U/L (0-40); Blood Urea Nitrogen 9 mg/dL (6-20); Carbon Dioxide 26 mmol/L (22-29); Chloride 101 mmol/L (98-107); Creatinine Clr Calc Pharmacy 143.5279; Globulin 3.6 g/dL (1.3-4.6); Glomerular Filtration Rate 109.3 mL/min (90-130); Glucose 99 mg/dL (65-115); Osmolality Calculated 285 mOsm/kg (285-295); Potassium 3.9 mmol/L (3.5-5.1); Salicylate 0.9 mg/dL (3-10); Sodium 138 mmol/L (136-145); Total Bilirubin 0.4 mg/dL (0.15-1.2)
[2024-03-28 20:14] LABS: Acetaminophen < 5.0 ug/mL (10-30); Alcohol Level < 10 mg/dL (0-10)
[2024-03-28] MEDS: nicotine 21 mg Patch 1 PATCH TRANSDERMA (21:05)
[2024-03-28 23:03] VITALS: BP 146/81; PULSE 83; RESP 18; TEMP 36.6; O2SAT 94
[2024-03-28 23:07] VITALS: BP 138/69; PULSE 90; RESP 18; O2SAT 99
[2024-03-28] MEDS: trazodone 50 mg Tablet PO (23:45)
[2024-03-28] MEDS: haloperidol 5 mg Tablet PO (23:45)
[2024-03-28] MEDS: nicotine 2 mg Gum BUCCAL (23:45)
--- NOTE | 2024-03-29 01:06 | PC.NURSE ---
Admission Note Pt arrived to NPU by wheelchair at 2300. Pt states that he is here because for about a week he has been having manic psychosis . Pt states that he has been having homicidal thoughts towards law enforcement, fire fighters and nursing staff. Pt states that he has also been hearing voices telling him to harm himself and others, and has been seeing shadow figures walking around. Pt told nursing staff that he was feeling suicidal and homicidal during admission. He stated his plan would be to drive his car into a hospital, police station or fire station to try and kill himself and as many people as possible . Pt was dressed into NPU scrubs and was orientated to the unit. This nurse administered Haldol 5mg PO for auditory hallucinations and Trazodone 50mg PO for sleep at 2345. Pt is now observed resting in bed quietly with eyes closed. Behavioral monitoring continues.
[2024-03-29] MEDS: nicotine 2 mg Gum BUCCAL ×3 (05:57→18:22)
[2024-03-29 06:00] VITALS: BP 104/51; PULSE 85; RESP 16; O2SAT 99
--- NOTE | 2024-03-29 09:24 | PC.NURSE ---
PT RESTING IN BED, AROUSES TO VOICE. PT IS OBSERVED WITH FLAT AFFECT AND ANXIOUS MOOD. PT REPORTS HE SLEPT WELL. DENIES SI AT THIS TIME. PT CONTINUES TO ENDORSE SEEING SHADOWS AND I'M HEARING VOICES. THEY DON'T TELL ME ANYTHING, I JUST HEAR THEM. PT REPORTS HAVING HOMICIDAL THOUGHTS AGAINST ALL YOU PEOPLE. WHEN ASKED IF HEHAS A PLAN PT STATES YES I'M GONG TO GET A CAR AND RUN IN THE BUILDING AND KILL ALL OF YOU. PT THEN ROLLED OVER AND WENT TO SLEEP. DENIES PAIN. ALL QUESTIONS ANSWERED AND SUPPORT VOICED.
--- NOTE | 2024-03-29 11:40 | P.NPUHP_ITS ---
Providers/Chief Complaint 2 Admitting Physician: Yonny Santiago MD Chief Complaint: MHE HPI NPU History of Present Illness Galo Jaime is a 28 year old male who presented to the emergency department with the following report: Chief Complaint: Psychiatric Symptoms Stated Complaint: MHE Time Seen by Provider: 03/28/24 19:11 History of Present Illness: Patient brought in by police department with complaints of homicidal and suicidal ideation. Patient stated he started having these ideas a couple weeks ago. Patient has been off of his psych meds because been unable to get him. He has not taken them for months. He has been hearing voices. He has a flat affect he has calm at present he is willing to go inpatient to get help. He was admitted to the neuropsychiatric unit for definitive treatment of those issues. He is known to the neuropsychiatric unit from a past hospitalization in June of last year and an excerpt of that note is included below for context. He presents today reporting that he was discharged from here back in June and did well for about 3 months. He reports that he ran out of his medication because he moved from [place] where he was connected with [facility] to the [place] area and was not able to continue follow-up in an appropriate manner. He reports that eventually in December or January she started having symptoms again and ultimately went to the hospital a few weeks ago at [facility] and they started him on Invega and placed him on the Invega Sustenna injection which he reports he has had the first 2 loading doses. He reports that he has not had an abatement of the paranoia or psychosis since the Invega was started which she reports is different than when he was on the medication with Dr. Owusu which was Zoloft, naltrexone, Latuda and a small dose of Zyprexa at night. He reports that he was able to do well, follow-up with [facility] and use the refills to help with his sobriety as well as his mental health. He identified that he is hopeful that he can get back on medications to help him with his symptoms and that his ultimate plan is to return to [place] for some kind of sober living treatment facility. He reports that he has been in [place] recently having gone there from [place]. He reports he does have a history of some addiction issues there but he feels comfortable that he can avoid problematic places. He also reports that he is been using marijuana and alcohol but has a past history of methamphetamine and that he wants to maintain his sobriety from all substances in hopes of getting better. We discussed the risks, benefits and alternatives of us considering whether the Invega is the appropriate medication but resuming the Latuda first and then considering restoring previous medications which she had success with. We discussed holding off judgment on the Invega for the time being but that we might be open to a different medication. We discussed the risks, benefits and alternatives of this plan and he understood and agreed to proceed as is documented in this note. Per his 06/12/2023 [facility] inpatient psychiatric discharge summary: Discharge Diagnosis (1) Unspecified psychosis: Status: Acute (2) Depression, unspecified: Status: Acute (3) Alcohol abuse: Status: Acute (4) Methamphetamine abuse: Status: Resolved Reason for Visit Reason for Visit: SI/HI Brief History: History of Present Illness Galo Jaime is a 27 year old -Haitian male who presented to the emergency department in [facility] via ambulance with reports of having thoughts of killing himself. He had stated that he was thinking about wrapping a belt around his neck in order to end his life. He had reported that he had been hearing voices for several days and stated that he had had severe depression. Patient was transferred to the neuropsychiatric unit for further evaluation and treatment in [facility]. The patient had reported that he had been initially receiving treatment in [place]. He reports that approximately 1 month ago he had spoken with his outpatient provider about receiving help for his 2 pint per day use of alcohol for the past few years. The patient was referred to a [facility]-based program in [place] known as the [facility] and upon arriving there he reported that he was prevented from taking his medications to combat depression and auditory hallucinations. The patient had reported that the hallucinations had began several years ago after he had used methamphetamine for an extended period of time. He had stated that he had been off methamphetamine but the auditory hallucinations persisted. He had also endorsed having periods of paranoia as well. He states that he had relapsed in the last 6 months 1 time but had been drinking continuously for several years. The patient had reported that he had been hospitalized another time last week in [place] and was sent to another facility called [facility] which once again had prohibited the patient from receiving his medications. Patient had reported that he had left both of these hector-based facilities and had stated that he needed to get help for his depression. He endorses continued suicidal ideation and reports that he continues to hear voices telling him to run away. He and also endorses paranoia. He reports sleep continuity disruption along with hypersomnia and low energy. He did not endorse any clear history of manic symptoms. He had endorsed some feelings of worthlessness. He had reported a past history of alcohol related withdrawal symptoms. Inpatient psychiatric history patient reports 3 hospitalizations in the past. He had endorsed a past history of suicide attempts. Outpatient psychiatric history: Patient had been receiving clinic through the [facility] in [facility] with previous trials on variety of medications including Seroquel, Latuda, Zoloft, and Zyprexa. Drug and alcohol history: He has a past history of drug and alcohol treatment on an outpatient basis but only recently on an inpatient basis while had a [facility]- based program over the last month. He has a history of alcohol related withdrawal symptoms. Medical history: Hypertension Surgeries: None Allergies: No known drug allergies Current medications: Doxepin 25 mg at night, Latuda 40 mg with food daily, olanzapine 10 mg at night, Zoloft 50 mg daily Legal history: None Social history: Patient was born in [facility] and raised by his biological parents. He is the youngest of 6 children 3 of whom were adopted. He had reported no history of sexual physical or emotional abuse. He had graduated from high school and did not attend college. He had worked in construction previously. He had had a history of problems with alcohol consumption beginning at the age of 23. He had reported occasional marijuana use in the past. He reports that his mother had of CHF in 2016 and that his father had in July 2022. He reports living with his extended family in [place] but reports that he had been most recently residing in [facility] for less than a week. He has no children and has never been . history: None Hospital Course He slowly acclimated to the individual, group and milieu therapies provided. He came in with addiction issues as well as mental health challenges. During the stay tapered and his Latuda was titrated. Zyprexa down to 2.5 mg p.o. nightly and Latuda up to 80 mg daily. Additionally his Zoloft was increased to 100 mg p.o. daily. He demonstrated significant improvement and was able to contract for safety outside the hospital prior to discharge. He worked with the social work team and was able to secure a sober living treatment facility to which he was discharged. At the outside hospital, patient had routine laboratory studies which were within normal limits except for few outliers. Additionally there was a general medical evaluation which was also within normal limits and revealed no new acute processes. Discharge Summary: At the time of discharge, he denied psychosis or lethality . Mood and anxiety were well managed. Patient endorsed a plan to avoid all drugs of abuse and follow-up with the aftercare recommendations of the treatment team. Patient was evaluated and deemed to be absent credible lethality, and had achieved the maximum benefit from an inpatient hospitalization, so was discharged. Meds NPU Home Medications Medication Instructions Recorded Confirmed Last Taken Type No Known Home Medications 03/28/24 03/28/24 Unknown History Allergies Allergy/AdvReac Type Severity Reaction Status Date / Time No Known Allergies Allergy Verified 03/28/24 19:08 Mental Status Exam 2 MSE Comments: This is an overweight versus obese pleasant -Haitian male in hospital scrubs with adequate grooming and limited eye contact. No abnormal movements except for mild psychomotor retardation. Cooperative with exam and mild to moderate distress. His speech was slightly decreased rate and volume. His mood was described as anxious and distressed. His affect appears congruent but flat. His thought process was linear logical and goal-directed. Thought content: Patient endorsed suicidal and homicidal ideation, he reported paranoia and there was paranoia noted, he did not appear to be responding to internal stimuli today. He endorsed struggling with perceptual disturbances but he did not go into detail. Attention and concentration was intact and memory was mostly reliable but none were formally tested. He was alert and oriented to person and place. His insight was fair, his judgment was limited and his impulse control was impaired. 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 He was restarted on medications that have been less effective with a hospitalization a few weeks ago presenting with lethality both suicidal and homicidal ideation as well as psychosis. ?1. Encourage individual, group and milieu therapy. ?2. Recommend sober living treatment at the highest level of care to which the patient is willing to commit. 3. Continue q-15 minute checks for safety.? 4. Continue current medication, specifically Invega Sustenna but will resume Latuda 40 mg at dinnertime. 5. Will try to get records from [facility] to have a better understanding of his current medications. 6. Seeking inpatient rehabilitation for addiction closer to the patient's area of residence. 7. Consider restarting naltrexone 50mg daily to target alcohol cravings with possible use of vivitrol. Involuntary Hold Information 2 96 Hour Hold: 96 Hour Involuntary Admission: No Attestations NPU 2 Medical Necessity Statement*: Inpatient hospitalization is medically necessary and the clinically appropriate intervention at this time. We will monitor/initiate medications and make changes as indicated. Patient will be hospitalized for at least 2 midnights. The patient's likely length of stay will be 5 to 7 days. Coding Level of Care Code Acute Code for g Fwd Diagnoses Unspecified psychosis F29 Depression, unspecified F32.A Alcohol abuse F10.10 Methamphetamine abuse F15.10 Suicidal ideation R45.851 Homicidal ideation R45.850 Anxiety F41.9
[2024-03-29 14:00] VITALS: BP 106/70; PULSE 84; RESP 16; TEMP 36.9; O2SAT 98
[2024-03-29] MEDS: lurasidone 20 mg Tablet 40 MG PO (17:30)
--- NOTE | 2024-03-29 17:43 | PC.NURSE ---
PT REQUEST THAT HE BE GIVEN SOMETHING FOR NIGHTMARES AND TO GO TO THE BATHROOM. DR. PICHARDO NOTIFIED AND NEW ORDERS RECEIVED TO START PRAZOSIN 2 MG PO AT BEDTIME AND DULCULAX 5 MG PO DAILY PRN CONSTIPATION. PT EDUCATION PROVIDED ON PRAZOSIN TO STAY HYDRATED AND BE CAREFUL GETTING UP IN THE MORNING AND AT NIGHT TIME. ALL QUESTIONS ANSWERED AND SUPPORT VOICED..
[2024-03-29] MEDS: hyDROXYzine 25 mg Capsule 50 MG PO (18:22)
[2024-03-29] MEDS: bisacodyl 5 mg Tablet PO (18:22)
[2024-03-29] MEDS: prazosin 1 mg Capsule 2 MG PO (21:20)
[2024-03-29] MEDS: trazodone 50 mg Tablet PO (21:20)
[2024-03-29 22:00] VITALS: BP 114/65; PULSE 86; RESP 17; TEMP 36.8; O2SAT 99
[2024-03-30] MEDS: acetaminophen 325 mg Tablet 650 MG PO ×2 (04:17→15:31)
[2024-03-30 06:00] VITALS: BP 90/54; PULSE 68; RESP 16; O2SAT 97
[2024-03-30] MEDS: nicotine 2 mg Gum BUCCAL ×3 (08:11→16:05)
[2024-03-30] MEDS: bisacodyl 5 mg Tablet PO (13:00)
[2024-03-30 13:27] VITALS: BP 109/62; PULSE 75; RESP 16; TEMP 36.8; O2SAT 100
[2024-03-30] MEDS: hyDROXYzine 25 mg Capsule 50 MG PO ×2 (15:08→20:59)
--- NOTE | 2024-03-30 16:38 | P.NPUPN_ITS ---
Subjective NPU 2 Subjective: Patient presented today reporting that he is doing okay. He reports feeling unchanged since the Latuda was started. We discussed the fact that his last stay required twice the current dose to get the fact that it had. We discussed working on getting connected with rehab or sober living resources after discharge. He seemed to be somewhat ambivalent but very focused on getting his symptoms resolving. He denied any side effects from the medications. Mental Status Exam 2 MSE Comments: This is an overweight versus obese pleasant -Salvadorean male in hospital scrubs with adequate grooming and limited eye contact. No abnormal movements except for mild psychomotor retardation. Cooperative with exam and mild to moderate distress. His speech was slightly decreased rate and volume. His mood was described as anxious and distressed. His affect appears congruent but flat. His thought process was linear logical and goal-directed. Thought content: Patient endorsed suicidal and homicidal ideation, he reported paranoia and there was paranoia noted, he did not appear to be responding to internal stimuli today. He endorsed struggling with perceptual disturbances but he did not go into detail. Attention and concentration was intact and memory was mostly reliable but none were formally tested. He was alert and oriented to person and place. His insight was fair, his judgment was limited and his impulse control was impaired. 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 He was restarted on medications that have been less effective with a hospitalization a few weeks ago presenting with lethality both suicidal and homicidal ideation as well as psychosis. ?1. Encourage individual, group and milieu therapy. ?2. Recommend sober living treatment at the highest level of care to which the patient is willing to commit. 3. Continue q-15 minute checks for safety.? 4. Continue current medication, specifically Invega Sustenna but restarted Latuda 40 mg at dinnertime. Obtain collateral information from [facility]. 5. Will try to get records from [facility] to have a better understanding of his current medications. 6. Seeking inpatient rehabilitation for addiction closer to the patient's area of residence. 7. Consider restarting naltrexone 50mg daily to target alcohol cravings with possible use of vivitrol. Involuntary Hold Information 2 96 Hour Hold: 96 Hour Involuntary Admission: No Attestations NPU 2 Medical Necessity Statement*: Inpatient hospitalization is medically necessary and the clinically appropriate intervention at this time. We will monitor/initiate medications and make changes as indicated. The patient's likely length of stay will be 4-6 days. Coding Level of Care Code Acute Code for g Fwd Diagnoses Unspecified psychosis F29 Depression, unspecified F32.A Alcohol abuse F10.10 Methamphetamine abuse F15.10 Suicidal ideation R45.851 Homicidal ideation R45.850 Anxiety F41.9
[2024-03-30] MEDS: lurasidone 20 mg Tablet 40 MG PO (16:59)
[2024-03-30] MEDS: OLANZapine 5 mg ODT PO (18:28)
[2024-03-30 20:33] VITALS: BP 112/56
[2024-03-30] MEDS: trazodone 50 mg Tablet PO (20:59)
[2024-03-30] MEDS: prazosin 1 mg Capsule 2 MG PO (20:59)
[2024-03-30 22:10] VITALS: BP 98/59; PULSE 84; RESP 16; TEMP 36.6; O2SAT 96
[2024-03-31 06:00] VITALS: BP 108/63; PULSE 82; RESP 16; TEMP 36.7; O2SAT 99
--- NOTE | 2024-03-31 12:35 | PC.NURSE ---
Patient room searched for contraband. Extra clothing and snacks confiscated.
[2024-03-31] MEDS: nicotine 2 mg Gum BUCCAL ×3 (12:40→18:43)
[2024-03-31 13:32] VITALS: BP 137/64; PULSE 82; RESP 14; TEMP 36.9; O2SAT 100
[2024-03-31] MEDS: lurasidone 20 mg Tablet 40 MG PO (16:37)
--- NOTE | 2024-03-31 17:57 | P.NPUPN_ITS ---
Subjective NPU 2 Subjective: Patient presented today reporting that he is doing okay. He endorses being more open to some more structured discharge options. He worked with the social work team to explore what possibilities were available. We discussed the risks, benefits and alternatives of increasing his Latuda to 60 mg p.o. nightly and he understood and agreed to proceed as is documented in this note. He denied any side effects to the medications. Mental Status Exam 2 MSE Comments: This is an overweight versus obese pleasant -Scottish male in hospital scrubs with adequate grooming and limited eye contact. No abnormal movements except for mild psychomotor retardation. Cooperative with exam and mild distress. His speech was slightly decreased rate and volume. His mood was described as getting better. His affect appears congruent. His thought process was linear logical and goal-directed. Thought content: Patient endorsed suicidal and homicidal ideation, he reported paranoia and there was paranoia noted, he did not appear to be responding to internal stimuli today. He endorsed struggling with perceptual disturbances but he did not go into detail. Attention and concentration was intact and memory was mostly reliable but none were formally tested. He was alert and oriented to person and place. His insight was fair, his judgment was limited and his impulse control was impaired. 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 He was restarted on medications that have been less effective with a hospitalization a few weeks ago presenting with lethality both suicidal and homicidal ideation as well as psychosis. ?1. Encourage individual, group and milieu therapy. ?2. Recommend sober living treatment at the highest level of care to which the patient is willing to commit. 3. Continue q-15 minute checks for safety.? 4. Continue current medication, specifically Invega Sustenna but restarted Latuda 40 mg at dinnertime. Obtain collateral information from [facility]. Increase Latuda to 60 mg p.o. at dinner. 5. Will try to get records from [facility] to have a better understanding of his current medications. 6. Seeking inpatient rehabilitation for addiction closer to the patient's area of residence. 7. Consider restarting naltrexone 50mg daily to target alcohol cravings with possible use of vivitrol. Involuntary Hold Information 2 96 Hour Hold: 96 Hour Involuntary Admission: No Attestations NPU 2 Medical Necessity Statement*: Inpatient hospitalization is medically necessary and the clinically appropriate intervention at this time. We will monitor/initiate medications and make changes as indicated. The patient's likely length of stay will be 2-5 days. Coding Level of Care Code Acute Code for g Fwd Diagnoses Unspecified psychosis F29 Depression, unspecified F32.A Alcohol abuse F10.10 Methamphetamine abuse F15.10 Suicidal ideation R45.851 Homicidal ideation R45.850 Anxiety F41.9
[2024-03-31] MEDS: hyDROXYzine 25 mg Capsule 50 MG PO (18:33)
[2024-03-31 20:42] VITALS: BP 110/69; PULSE 78; RESP 16; TEMP 36.7; O2SAT 100
[2024-03-31] MEDS: trazodone 50 mg Tablet PO (22:01)
[2024-03-31] MEDS: prazosin 1 mg Capsule 2 MG PO (22:01)
[2024-03-31] MEDS: OLANZapine 5 mg ODT PO (22:01)
[2024-04-01 06:22] VITALS: BP 107/57; PULSE 70; RESP 18; TEMP 36.8; O2SAT 97
--- NOTE | 2024-04-01 11:41 | PC.NURSE ---
THIS NURSE CONTACTED [facility] TO FIND OUT WHEN PT RECEIVED LAST INVEGA INJECTIONS. PT RECEIVED 234MG LOADING DOSE INJECTION ON 03/19/24 AND 156MG SECOND LOADING DOSE ON 03/23/24. PHYSICIAN INFORMED OF NEW INFORMATION.
[2024-04-01] MEDS: nicotine 2 mg Gum BUCCAL ×3 (13:38→18:04)
--- NOTE | 2024-04-01 13:38 | W.PM.NPUPNS ---
Subjective NPU Subjective: Patient presented today reporting that he is doing okay and continuing to work on identifying possible places for him to discharge to. SOC was full and there was not apparent going to be a bed available until maybe next week. He is working with the social work team for alternative discharge options. He reportedly made multiple calls per staff reports. He denied any side effects of the medication. Mental Status Exam MSE Comments: This is an overweight versus obese pleasant -Peruvian male in hospital scrubs with adequate grooming and limited eye contact. No abnormal movements except for mild psychomotor retardation. Cooperative with exam and mild distress. His speech was slightly decreased rate and volume. His mood was described as getting better. His affect appears congruent. His thought process was linear logical and goal-directed. Thought content: Patient endorsed suicidal and homicidal ideation, he reported paranoia and there was paranoia noted, he did not appear to be responding to internal stimuli today. He endorsed struggling with perceptual disturbances but he did not go into detail. Attention and concentration was intact and memory was mostly reliable but none were formally tested. He was alert and oriented to person and place. His insight was fair, his judgment was limited and his impulse control was impaired. 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 He was restarted on medications that have been less effective with a hospitalization a few weeks ago presenting with lethality both suicidal and homicidal ideation as well as psychosis. ?1. Encourage individual, group and milieu therapy. ?2. Recommend sober living treatment at the highest level of care to which the patient is willing to commit. 3. Continue q-15 minute checks for safety.? 4. Continue current medication, specifically Invega Sustenna but restarted Latuda 40 mg at dinnertime. Obtain collateral information from [facility]. Increased Latuda to 60 mg p.o. at dinner. 5. Will try to get records from [facility] to have a better understanding of his current medications. Next Invega Sustenna injection is due 04/23/2024. 6. Seeking inpatient rehabilitation for addiction closer to the patient's area of residence. 7. Consider restarting naltrexone 50mg daily to target alcohol cravings with possible use of vivitrol. Involuntary Hold Information 96 Hour Hold: 96 Hour Involuntary Admission: No Attestations NPU Medical Necessity Statement*: Inpatient hospitalization is medically necessary and the clinically appropriate intervention at this time. We will monitor/initiate medications and make changes as indicated. The patient's likely length of stay will be 2-5 days. Coding Level of Care Code Acute Code for g Fwd Diagnoses Unspecified psychosis F29 Depression, unspecified F32.A Alcohol abuse F10.10 Methamphetamine abuse F15.10 Suicidal ideation R45.851 Homicidal ideation R45.850 Anxiety F41.9
[2024-04-01 14:00] VITALS: BP 106/68; PULSE 79; RESP 20; TEMP 36.4; O2SAT 100
[2024-04-01] MEDS: acetaminophen 325 mg Tablet 650 MG PO (16:46)
[2024-04-01] MEDS: hyDROXYzine 25 mg Capsule 50 MG PO (16:46)
[2024-04-01] MEDS: OLANZapine 5 mg ODT PO (18:03)
[2024-04-01] MEDS: lurasidone 20 mg Tablet 60 MG PO (18:03)
[2024-04-01 21:02] VITALS: BP 101/68; PULSE 88; RESP 17; TEMP 36.6; O2SAT 97
--- NOTE | 2024-04-02 02:41 | NUR.SHIFT ---
Patient was reminded that he had night medications at the nurses station and he refused.
[2024-04-02 06:00] VITALS: BP 105/64; PULSE 69; RESP 16; TEMP 36.6; O2SAT 97
--- NOTE | 2024-04-02 09:19 | PC.NURSE ---
PT RESTING IN BED, PT IS EVASIVE WITH ASSESSMENT. DENIES PAIN. DENIES SI/HI AND AVH AT THIS TIME. PT IS OBSERVED WITH FLAT AFFECT, DEPRESSED MOOD AND GUARDED WITH STAFF. PT CONTINUES TO REST IN BED AND MAKES NO EYE CONTACT WITH RN. DENIES HAVING ANY HOMICIDAL THOUGHTS. RATES ANXIETY AND DEPRESSION 0/10. ALL QUESTIONS ANSWERED AND SUPPORT VOICED.
--- NOTE | 2024-04-02 12:10 | P.NPUPN_ITS ---
Subjective NPU 2 Subjective: Patient presented today reporting that he is a little frustrated he could not find a place to go. He and the social work team continue to look at possible options for his discharge. He continues to adjust the medication well reporting that he is tolerating the increase in the Latuda. We discussed Dr. Owusu returning tomorrow and continuing the process. He denied any side effects to medications. Mental Status Exam 2 MSE Comments: This is an overweight versus obese pleasant -Grenadian male in hospital scrubs with adequate grooming and limited eye contact. No abnormal movements except for mild psychomotor retardation. Cooperative with exam and mild distress. His speech was slightly decreased rate and volume. His mood was described as getting better. His affect appears congruent. His thought process was linear logical and goal-directed. Thought content: Patient endorsed suicidal and homicidal ideation, he reported paranoia and there was paranoia noted, he did not appear to be responding to internal stimuli today. He endorsed struggling with perceptual disturbances but he did not go into detail. Attention and concentration was intact and memory was mostly reliable but none were formally tested. He was alert and oriented to person and place. His insight was fair, his judgment was limited and his impulse control was impaired. 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 He was restarted on medications that have been less effective with a hospitalization a few weeks ago presenting with lethality both suicidal and homicidal ideation as well as psychosis. ?1. Encourage individual, group and milieu therapy. ?2. Recommend sober living treatment at the highest level of care to which the patient is willing to commit. 3. Continue q-15 minute checks for safety.? 4. Continue current medication, specifically Invega Sustenna but restarted Latuda 40 mg at dinnertime. Obtain collateral information from [facility]. Increased Latuda to 60 mg p.o. at dinner. 5. Will try to get records from [facility] to have a better understanding of his current medications. Next Invega Sustenna injection is due 04/23/2024. 6. Seeking inpatient rehabilitation for addiction closer to the patient's area of residence. 7. Consider restarting naltrexone 50mg daily to target alcohol cravings with possible use of vivitrol. Involuntary Hold Information 2 96 Hour Hold: 96 Hour Involuntary Admission: No Attestations NPU 2 Medical Necessity Statement*: Inpatient hospitalization is medically necessary and the clinically appropriate intervention at this time. We will monitor/initiate medications and make changes as indicated. The patient's likely length of stay will be 3-5 days. Coding Level of Care Code Acute Code for Chg Fwd Diagnoses Unspecified psychosis F29 Depression, unspecified F32.A Alcohol abuse F10.10 Methamphetamine abuse F15.10 Suicidal ideation R45.851 Homicidal ideation R45.850 Anxiety F41.9
[2024-04-02] MEDS: nicotine 2 mg Gum BUCCAL (13:16)
[2024-04-02 14:00] VITALS: BP 119/74; PULSE 87; RESP 20; TEMP 36.9; O2SAT 99
[2024-04-02] MEDS: nicotine 4 mg lozenge MUCOUS MEM ×2 (15:23→17:03)
[2024-04-02] MEDS: OLANZapine 5 mg ODT PO (18:06)
[2024-04-02] MEDS: lurasidone 20 mg Tablet 60 MG PO (18:34)
[2024-04-02] MEDS: haloperidol 5 mg Tablet PO (19:52)
[2024-04-02] MEDS: prazosin 1 mg Capsule 2 MG PO (20:31)
[2024-04-02] MEDS: trazodone 50 mg Tablet PO (20:32)
[2024-04-02 22:00] VITALS: BP 136/73; PULSE 90; RESP 18; TEMP 37; O2SAT 99
[2024-04-03 06:00] VITALS: BP 110/61; PULSE 80; RESP 16; O2SAT 98
[2024-04-03] MEDS: nicotine 4 mg lozenge MUCOUS MEM ×5 (13:22→21:29)
[2024-04-03 14:00] VITALS: BP 122/80; PULSE 92; RESP 20; TEMP 37.2; O2SAT 96
[2024-04-03] MEDS: lurasidone 20 mg Tablet 60 MG PO (17:21)
[2024-04-03] MEDS: acetaminophen 325 mg Tablet 650 MG PO (17:21)
[2024-04-03] MEDS: OLANZapine 5 mg ODT PO (19:45)
[2024-04-03] MEDS: trazodone 50 mg Tablet PO ×2 (20:40→22:12)
[2024-04-03] MEDS: prazosin 1 mg Capsule 2 MG PO (20:40)
[2024-04-03] MEDS: hyDROXYzine 25 mg Capsule 50 MG PO (20:40)
[2024-04-03 21:05] VITALS: BP 138/63; PULSE 97; RESP 18; TEMP 36.9; O2SAT 99
--- NOTE | 2024-04-03 22:08 | P.NPUPN_ITS ---
Subjective NPU 2 Subjective: patient is a 28-year-old -Tongan male with schizoaffective disorder. He had reported a recent relapse on methamphetamine. He had reported that he had been having auditory hallucinations but reported that they were better with the Latuda. He reported no side effects from the Latuda at this time. He had expressed anxiety about not having a permanent place to live. He had reported that his mood was better although he had reported fleeting suicidal thoughts. He had reported some depressed mood but stated that he had felt better since resuming the Latuda. Mental Status Exam 2 MSE Comments: This is an overweight versus obese pleasant -Tongan male in hospital scrubs with adequate grooming and limited eye contact. No abnormal movements except for mild psychomotor retardation. He was cooperative with exam and mild distress. His speech was slightly decreased rate and volume. His mood was described as okay. His affect appears mood congruent. His thought process was linear logical and goal-directed. Thought content: Patient endorsed no suicidal and homicidal ideation today. He reported paranoia. He did not appear to be responding to internal stimuli. He endorsed struggling with perceptual disturbances but he did not go into detail. Attention and concentration was intact and memory was mostly reliable but none were formally tested. He was alert and oriented to person and place. His insight was fair. His judgment was limited and his impulse control was limited. 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 He was restarted on medications that have been less effective with a hospitalization a few weeks ago presenting with lethality both suicidal and homicidal ideation as well as psychosis. ?1. Encourage individual, group and milieu therapy. ?2. Recommend sober living treatment at the highest level of care to which the patient is willing to commit. 3. Continue q-15 minute checks for safety.? 4. Continue Latuda 60mg at night 5. Will try to get records from [facility] to have a better understanding of his current medications. Next Invega Sustenna injection is due 04/23/2024. 6. Seeking inpatient rehabilitation for addiction closer to the patient's area of residence. 7. Consider restarting naltrexone 50mg daily to target alcohol cravings with possible use of vivitrol. Involuntary Hold Information 2 96 Hour Hold: 96 Hour Involuntary Admission: No Attestations NPU 2 Medical Necessity Statement*: Inpatient hospitalization is medically necessary and the clinically appropriate intervention at this time. We will monitor/initiate medications and make changes as indicated. The patient's likely length of stay will be 3-5 days. Coding Level of Care Code Acute Code for Chg Fwd Diagnoses Unspecified psychosis F29 Depression, unspecified F32.A Alcohol abuse F10.10 Methamphetamine abuse F15.10 Suicidal ideation R45.851 Homicidal ideation R45.850 Anxiety F41.9 Schizoaffective disorder, depressive type F25.1
[2024-04-04 06:00] VITALS: BP 132/87; PULSE 77; RESP 18; TEMP 36.6; O2SAT 99
[2024-04-04] MEDS: nicotine 4 mg lozenge MUCOUS MEM ×4 (06:01→19:51)
[2024-04-04] MEDS: bisacodyl 5 mg Tablet PO (12:03)
--- NOTE | 2024-04-04 12:28 | PC.NURSE ---
Patient room searched for contraband. Patient pen confiscated.
[2024-04-04] MEDS: buprenorphine-naloxone 4-1 mg Film 1 EACH SUBLINGUAL (13:42)
[2024-04-04] MEDS: nicotine 2 mg Gum BUCCAL (13:44)
[2024-04-04 14:00] VITALS: BP 117/73; PULSE 83; RESP 20; TEMP 36.8; O2SAT 98
[2024-04-04] MEDS: lurasidone 20 mg Tablet 60 MG PO (18:07)
--- NOTE | 2024-04-04 19:00 | W.PM.NPUPNS ---
Subjective NPU Subjective: Patient is a 28-year-old -E[place]ian male with schizoaffective disorder, opiate dependence, methamphetamine dependence, and recent depression. He had acknowledged continuing problems with occasional misuse of oral opiates and reported a significant history of opiate abuse in the past with treatment with medication assisted treatment including Sublocade. He had reported that he was depressed and reported that he felt concerned about his future as he had continued to struggle with controlling his methamphetamine use. He had requested Suboxone as he had stated that it has helped him with his opiate use as well. Patient had continued to report some PTSD related symptoms including nightmares. He had expressed desire to go [facility] if of that was open and available. Continued nightmares reported regarding trauma. Mental Status Exam MSE Comments: This is an overweight versus obese pleasant -E[place]ian male in hospital scrubs with adequate grooming and limited eye contact. No abnormal movements except for mild psychomotor retardation. He was cooperative with exam and mild distress. His speech was slightly decreased rate and volume. His mood was described as okay. His affect appears mood congruent. His thought process was linear logical and goal-directed. Thought content: Patient endorsed no suicidal and homicidal ideation today. He reported mild paranoia. He did not appear to be responding to internal stimuli. He minimized perceptual disturbances today. Attention and concentration was intact and memory was mostly reliable but none were formally tested. He was alert and oriented to person and place. His insight was fair. His judgment was limited and his impulse control was limited. Vitals/I&O/Wt Last Vital Signs Temp 98.3 F 04/04/24 14:00 Pulse 83 04/04/24 14:00 Resp 20 H 04/04/24 14:00 BP 117/73 04/04/24 14:00 Pulse Ox 98 04/04/24 14:00 O2 Del Method Room Air 04/04/24 06:00 Weight last 48 hrs Weight 107.671 kg Data NPU 03/28/24 19:46 03/28/24 19:46 A&P Assessment and plan (1) Unspecified psychosis: (2) Depression, unspecified: (3) Alcohol abuse: (4) Methamphetamine abuse: (5) Suicidal ideation: (6) Homicidal ideation: (7) Anxiety: (8) Schizoaffective disorder, depressive type: Plan Galo is a 28-year-old -E[place]ian male with a history of methamphetamine use disorder and 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 He was restarted on medications that have been less effective with a hospitalization a few weeks ago presenting with lethality both suicidal and homicidal ideation as well as psychosis. ?1. Encourage individual, group and milieu therapy. ?2. Recommend sober living treatment at the highest level of care to which the patient is willing to commit. 3. Continue q-15 minute checks for safety.? 4. Continue Latuda 60mg at night, increase prazosin 4mg at night to target ptsd related nightmares. 5. Will try to get records from [facility] to have a better understanding of his current medications. Next Invega Sustenna injection is due 04/23/2024. 6. Seeking inpatient rehabilitation for addiction closer to the patient's area of residence. 7. Begin Suboxone 4mg/1mg daily. Involuntary Hold Information 96 Hour Hold: 96 Hour Involuntary Admission: No Attestations NPU Medical Necessity Statement*: Inpatient hospitalization is medically necessary and the clinically appropriate intervention at this time. We will monitor/initiate medications and make changes as indicated. The patient's likely length of stay will be 3-5 days. Coding Level of Care Code Acute Code for Chg Fwd Diagnoses Unspecified psychosis F29 Depression, unspecified F32.A Alcohol abuse F10.10 Methamphetamine abuse F15.10 Suicidal ideation R45.851 Homicidal ideation R45.850 Anxiety F41.9 Schizoaffective disorder, depressive type F25.1
[2024-04-04 20:06] VITALS: BP 126/77; PULSE 90; RESP 18; TEMP 36.7; O2SAT 98
[2024-04-04] MEDS: prazosin 1 mg Capsule 4 MG PO (20:46)
[2024-04-05 06:00] VITALS: BP 116/73; PULSE 82; RESP 17; TEMP 36.4; O2SAT 99
--- NOTE | 2024-04-05 08:51 | PC.NURSE ---
PT CAME TO NURSES STATION AND DECLINES 900 AM MED, (SUBOXONE) PT WAS EDUCATED TO TAKE MEDICATIONS PRESCRIBED BUT PT CONTINUES TO DECLINE. SUBOXONE 4/2MG RETURNED TO [facility].
[2024-04-05] MEDS: nicotine 4 mg lozenge MUCOUS MEM ×2 (10:28→13:47)
[2024-04-05] MEDS: buprenorphine-naloxone 4-1 mg Film 1 EACH SUBLINGUAL ×2 (11:45→18:20)
--- NOTE | 2024-04-05 11:47 | PC.NURSE ---
PT UP TO NURSES STATION AND NOW REQUESTS HE BE GIVEN HIS SUBOXONE. DR. SCHREIBER NOTIFIED AND OKAYED TO GIVE PT LATE DOSE. PT TOOK WITHOUT ISSUES.
[2024-04-05 13:10] VITALS: BP 129/70; PULSE 93; RESP 18; O2SAT 97
[2024-04-05] MEDS: nicotine 2 mg Gum BUCCAL ×2 (16:04→18:20)
--- NOTE | 2024-04-05 16:13 | PC.NURSE ---
AT NURSES STATION REQUESTING MORE SUBOXONE, THE SAID I COULD HAVE MORE AND HE WAS UPPING MY DOSE. PT WAS EDUCATED THAT THERE WERE NO NEW ORDERS FOR SUBOXONE BUT THIS RN WOULD CHECK WITH DR. SCHREIBER PRIOR TO HIM LEAVING FOR THE DAY. SUPPORT VOICED.
[2024-04-05] MEDS: lurasidone 80 mg Tablet PO (16:39)
[2024-04-05] MEDS: hyDROXYzine 25 mg Capsule 50 MG PO (16:40)
--- NOTE | 2024-04-05 17:41 | P.NPUPN_ITS ---
Subjective NPU 2 Subjective: Patient is a 28-year-old -Ivorian male with schizoaffective disorder, opiate dependence, methamphetamine dependence, and recent depression. He had reported feeling depressed but stated that he would like to continue at [facility]. He had reported no side effects from his buprenorphine. He had reported some cravings still for opiates. He had minimized any nightmares last night. He had reported that the hallucinations were present but were less distracting. He had denied any manic symptoms. He had complained of having problems with anxiety and stated that he had been drinking recently with the patient reporting some interest in digital therapeutic applications for treating addiction including alcohol and methamphetamine dependence. He had reported a lack of social supports and he had continued to express concern about his prolonged homelessness. Mental Status Exam 2 MSE Comments: This is an overweight versus obese pleasant -Ivorian male in hospital scrubs with adequate grooming and limited eye contact. No abnormal involuntary motor movements except for mild psychomotor retardation. He was cooperative with exam and mild distress. His speech was slightly decreased rate and volume. His mood was described as okay. His affect appears mood congruent. His thought process was linear logical and goal-directed. Thought content: Patient endorsed no suicidal and homicidal ideation today. He reported mild paranoia. He did not appear to be responding to internal stimuli. He minimized perceptual disturbances today. Attention and concentration was intact and memory was mostly reliable but none were formally tested. He was alert and oriented to person and place. His insight was fair. His judgment was limited and his impulse control was limited. 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 He was restarted on medications that have been less effective with a hospitalization a few weeks ago presenting with lethality both suicidal and homicidal ideation as well as psychosis. ?1. Encourage individual, group and milieu therapy. ?2. Recommend sober living treatment at the highest level of care to which the patient is willing to commit. 3. Continue q-15 minute checks for safety.? 4. Increase Latuda 80mg at night, continue prazosin 4mg at night to target ptsd related nightmares. 5. Will try to get records from [facility] to have a better understanding of his current medications. Next Invega Sustenna injection is due 04/23/2024. 6. [facility]C to [facility]. 7. increase Suboxone 4mg/1mg bid. Involuntary Hold Information 2 96 Hour Hold: 96 Hour Involuntary Admission: No Attestations NPU 2 Medical Necessity Statement*: Inpatient hospitalization is medically necessary and the clinically appropriate intervention at this time. We will monitor/initiate medications and make changes as indicated. The patient's likely length of stay will be 1-2 days. Coding Level of Care Code Acute Code for g Fwd Diagnoses Unspecified psychosis F29 Depression, unspecified F32.A Alcohol abuse F10.10 Methamphetamine abuse F15.10 Suicidal ideation R45.851 Homicidal ideation R45.850 Anxiety F41.9 Schizoaffective disorder, depressive type F25.1
--- NOTE | 2024-04-05 18:41 | PC.NURSE ---
PT RECEIVED VISTARIL 50 MG THIS SHIFT FOR REPORTS OF INCREASED ANXIETY. MEDICATION DEEMED EFFECTIVE AT THIS TIME. PT IS IN SHOWER AND HAS NO OTHER COMPLAINTS OF ANXIETY THIS SHIFT.
[2024-04-05] MEDS: prazosin 1 mg Capsule 4 MG PO (20:47)
[2024-04-05 22:00] VITALS: BP 115/71; PULSE 78; RESP 18; TEMP 36.6; O2SAT 97
[2024-04-06 06:00] VITALS: BP 109/68; PULSE 66; RESP 16; TEMP 36.7; O2SAT 99
[2024-04-06] MEDS: nicotine 4 mg lozenge MUCOUS MEM (07:35)
--- NOTE | 2024-04-06 07:37 | PC.NURSE ---
During morning shift assessment, patient denies anxiety, depression, SI, HI, AVH. Patient denies any questions/concerns.
--- NOTE | 2024-04-06 08:12 | P.NPUDS_ITS ---
Diagnoses at Discharge Discharge Diagnosis (1) Unspecified psychosis: Status: Acute (2) Depression, unspecified: Status: Acute (3) Alcohol abuse: Status: Acute (4) Methamphetamine abuse: Status: Resolved (5) Suicidal ideation: Status: Acute (6) Homicidal ideation: Status: Acute (7) Anxiety: Status: Acute (8) Schizoaffective disorder, depressive type: Status: Acute Reason for Visit Reason for Visit: MHE Brief History: History of Present Illness Galo Jaime is a 28 year old male who presented to the emergency department with the following report: Chief Complaint: Psychiatric Symptoms Stated Complaint: MHE Time Seen by Provider: 03/28/24 19:11 History of Present Illness: Patient brought in by police department with complaints of homicidal and suicidal ideation. Patient stated he started having these ideas a couple weeks ago. Patient has been off of his psych meds because been unable to get him. He has not taken them for months. He has been hearing voices. He has a flat affect he has calm at present he is willing to go inpatient to get help. He was admitted to the neuropsychiatric unit for definitive treatment of those issues. He is known to the neuropsychiatric unit from a past hospitalization in June of last year and an excerpt of that note is included below for context. He presents today reporting that he was discharged from here back in June and did well for about 3 months. He reports that he ran out of his medication because he moved from [place] where he was connected with [facility] to the [facility] and was not able to continue follow-up in an appropriate manner. He reports that eventually in December or January she started having symptoms again and ultimately went to the hospital a few weeks ago at [facility] and they started him on Invega and placed him on the Invega Sustenna injection which he reports he has had the first 2 loading doses. He reports that he has not had an abatement of the paranoia or psychosis since the Invega was started which she reports is different than when he was on the medication with Dr. Owusu which was Zoloft, naltrexone, Latuda and a small dose of Zyprexa at night. He reports that he was able to do well, follow-up with [facility] and use the refills to help with his sobriety as well as his mental health. He identified that he is hopeful that he can get back on medications to help him with his symptoms and that his ultimate plan is to return to [place] for some kind of sober living treatment facility. He reports that he has been in [place] recently having gone there from [place]. He reports he does have a history of some addiction issues there but he feels comfortable that he can avoid problematic places. He also reports that he is been using marijuana and alcohol but has a past history of methamphetamine and that he wants to maintain his sobriety from all substances in hopes of getting better. We discussed the risks, benefits and alternatives of us considering whether the Invega is the appropriate medication but resuming the Latuda first and then considering restoring previous medications which she had success with. We discussed holding off judgment on the Invega for the time being but that we might be open to a different medication. We discussed the risks, benefits and alternatives of this plan and he understood and agreed to proceed as is documented in this note. Per his 06/12/2023 [facility] inpatient psychiatric discharge summary: Discharge Diagnosis (1) Unspecified psychosis: Status: Acute (2) Depression, unspecified: Status: Acute (3) Alcohol abuse: Status: Acute (4) Methamphetamine abuse: Status: Resolved Reason for Visit Reason for Visit: SI/HI Brief History: History of Present Illness Galo Jaime is a 27 year old -Algerian male who presented to the emergency department in [facility] via ambulance with reports of having thoughts of killing himself. He had stated that he was thinking about wrapping a belt around his neck in order to end his life. He had reported that he had been hearing voices for several days and stated that he had had severe depression. Patient was transferred to the neuropsychiatric unit for further evaluation and treatment in [facility]. The patient had reported that he had been initially receiving treatment in [place]. He reports that approximately 1 month ago he had spoken with his outpatient provider about receiving help for his 2 pint per day use of alcohol for the past few years. The patient was referred to a [facility]-based program in [place] known as the [facility] and upon arriving there he reported that he was prevented from taking his medications to combat depression and auditory hallucinations. The patient had reported that the hallucinations had began several years ago after he had used methamphetamine for an extended period of time. He had stated that he had been off methamphetamine but the auditory hallucinations persisted. He had also endorsed having periods of paranoia as well. He states that he had relapsed in the last 6 months 1 time but had been drinking continuously for several years. The patient had reported that he had been hospitalized another time last week in [place] and was sent to another facility called [facility] which once again had prohibited the patient from receiving his medications. Patient had reported that he had left both of these hector-based facilities and had stated that he needed to get help for his depression. He endorses continued suicidal ideation and reports that he continues to hear voices telling him to run away. He and also endorses paranoia. He reports sleep continuity disruption along with hypersomnia and low energy. He did not endorse any clear history of manic symptoms. He had endorsed some feelings of worthlessness. He had reported a past history of alcohol related withdrawal symptoms. Inpatient psychiatric history patient reports 3 hospitalizations in the past. He had endorsed a past history of suicide attempts. Outpatient psychiatric history: Patient had been receiving clinic through the [facility] in [facility] [place] with previous trials on variety of medications including Seroquel, Latuda, Zoloft, and Zyprexa. Drug and alcohol history: He has a past history of drug and alcohol treatment on an outpatient basis but only recently on an inpatient basis while had a hector- based program over the last month. He has a history of alcohol related withdrawal symptoms. Medical history: Hypertension Surgeries: None Allergies: No known drug allergies Current medications: Doxepin 25 mg at night, Latuda 40 mg with food daily, olanzapine 10 mg at night, Zoloft 50 mg daily Legal history: None Social history: Patient was born in [facility] and raised by his biological parents. He is the youngest of 6 children 3 of whom were adopted. He had reported no history of sexual physical or emotional abuse. He had graduated from high school and did not attend college. He had worked in construction previously. He had had a history of problems with alcohol consumption beginning at the age of 23. He had reported occasional marijuana use in the past. He reports that his mother had of CHF in 2016 and that his father had in July 2022. He reports living with his extended family in [place] but reports that he had been most recently residing in [facility] for less than a week. He has no children and has never been . history: None Hospital Course He slowly acclimated to the individual, group and milieu therapies provided. He came in with addiction issues as well as mental health challenges. During the stay tapered and his Latuda was titrated. Zyprexa down to 2.5 mg p.o. nightly and Latuda up to 80 mg daily. Additionally his Zoloft was increased to 100 mg p.o. daily. He demonstrated significant improvement and was able to contract for safety outside the hospital prior to discharge. He worked with the social work team and was able to secure a sober living treatment facility to which he was discharged. At the outside hospital, patient had routine laboratory studies which were within normal limits except for few outliers. Additionally there was a general medical evaluation which was also within normal limits and revealed no new acute processes. Discharge Summary: At the time of discharge, he denied psychosis or lethality . Mood and anxiety were well managed. Patient endorsed a plan to avoid all drugs of abuse and follow-up with the aftercare recommendations of the treatment team. Patient was evaluated and deemed to be absent credible lethality, and had achieved the maximum benefit from an inpatient hospitalization, so was discharged. Hospital Course Hospital Course During the hospitalization, the patient had routine laboratory studies which were within normal limits except for a few outliers.? Additionally, there was a general medical evaluation which was also within normal limits and revealed no new acute processes. ?At the time of discharge, lethality was denied and psychosis was resolving.? Mood and anxiety were well managed.? The patient endorsed a plan to avoid all drugs of abuse and follow up with the aftercare recommendations of the treatment team.? The patient was evaluated and deemed to be absent credible lethality and had achieved the maximum benefit from an inpatient hospitalization, and so was discharged. Latuda was reinitiated and titrated up to a dose of 80 mg prior to discharge with improvement in psychotic symptoms. Patient was agreeable with maintaining Invega Sustenna as previously prescribed on a monthly basis as well. Prazosin was increased to 4 mg at night to target trauma related nightmares. Suboxone was reinitiated to target opiate dependence and titrated up to 8 mg daily prior to discharge. Involuntary Hold Information 96 Hour Hold: 96 Hour Involuntary Admission: No Mental Status Exam MSE Comments: This is an overweight versus obese pleasant -Algerian male in hospital scrubs with adequate grooming and limited eye contact. No abnormal involuntary motor movements except for mild psychomotor retardation. He was cooperative with exam and in no acute distress. His speech was normal in rate and volume. His mood was described as good. His affect appears brighter on discharge. His thought process was linear logical and goal-directed. Thought content: Patient endorsed no suicidal and homicidal ideation today. He did not appear to be responding to internal stimuli. Attention and concentration was intact and memory was mostly reliable but none were formally tested. He was alert and oriented to person and place. His insight was fair. His judgment was limited and his impulse control was limited. Discharge Data Studies Completed and Pending: Laboratory Results WBC 8.92 10^3/uL (3.2 9-11.43) 03/28/24 19:46 RBC 4.31 10^6/uL (3.8 5-5.65) 03/28/24 19:46 Hgb 12.50 g/dL (11.27 -16.99) 03/28/24 19:46 Hct 38.2 % (37-53) 03/28/24 19:46 MCV 88.6 fl (82-101) 03/28/24 19:46 MCH 29.0 pg (27-33) 03/28/24 19:46 MCHC 32.7 g/dL (30-55) 03/28/24 19:46 RDW 13.0 % (12.1-15.1 ) 03/28/24 19:46 Plt Count 305 10^3/cmm (157 -399) 03/28/24 19:46 MPV 9.6 fL (7.4-10.4) 03/28/24 19:46 Neut % (Auto) 71.6 % 03/28/24 19:46 Lymph % (Auto) 21.4 % 03/28/24 19:46 [place] % (Auto) 5.4 % 03/28/24 19:46 Eos % (Auto) 1.0 % 03/28/24 19:46 Baso % (Auto) 0.3 % 03/28/24 19:46 Neut # (Auto) 6.38 10^3/uL (1.8 -7.7) 03/28/24 19:46 Lymph # (Auto) 1.9 10^3/uL (0.8- 4.8) 03/28/24 19:46 [place] # (Auto) 0.5 10^3/uL (0.2- 0.9) 03/28/24 19:46 Eos # (Auto) 0.1 10^3/uL (0.0- 0.8) 03/28/24 19:46 Baso # (Auto) 0.0 10^3/uL (0.0- 0.1) 03/28/24 19:46 Nucleated RBC % (a uto) 0 % 03/28/24 19:46 Nucleated RBCs # 0.0 /100WBC 03/28/24 19:46 Sodium 138 mmol/L (136-1 45) 03/28/24 19:46 Potassium 3.9 mmol/L (3.5-5 .1) 03/28/24 19:46 Chloride 101 mmol/L (98-10 7) 03/28/24 19:46 Carbon Dioxide 26 mmol/L (22-29) 03/28/24 19:46 Anion Gap 14.9 (5-19) 03/28/24 19:46 BUN 9 mg/dL (6-20) 03/28/24 19:46 Creatinine 1.0 mg/dL (0.7-1. 2) 03/28/24 19:46 GFR Calculation 109.3 mL/min (90- 130) 03/28/24 19:46 Glucose 99 mg/dL (65-115) 03/28/24 19:46 Calculated Osmolal ity 285 mOsm/kg (285- 295) 03/28/24 19:46 Calcium 9.0 mg/dL (8.5-10 .5) 03/28/24 19:46 Total Bilirubin 0.4 mg/dL (0.15-1 .2) 03/28/24 19:46 AST 18 U/L (0-40) 03/28/24 19:46 ALT 15 U/L (0-41) 03/28/24 19:46 Alkaline Phosphata se 94 U/L (40-130) 03/28/24 19:46 Total Protein 8.0 g/dL (6.6-8.7 ) 03/28/24 19:46 Albumin 4.4 g/dL (3.5-5.2 ) 03/28/24 19:46 Globulin 3.6 g/dL (1.3-4.6 ) 03/28/24 19:46 Urine Color Yellow (Yellow) 03/28/24 19:50 Urine Appearance Clear (CLEAR) 03/28/24 19:50 Urine pH 7 (5-7) 03/28/24 19:50 Ur Specific Gravit y 1.005 (1.005-1.0 30) 03/28/24 19:50 Urine Protein Neg (Negative) 03/28/24 19:50 Urine Glucose (UA) Norm (Normal) 03/28/24 19:50 Urine Ketones Negative (Negati ve) 03/28/24 19:50 Urine Blood Neg (Negative) 03/28/24 19:50 Urine Nitrate Negative (Negati ve) 03/28/24 19:50 Urine Bilirubin Neg (Negative) 03/28/24 19:50 Urine Urobilinogen Neg mg/dL (Negati ve) 03/28/24 19:50 Ur Leukocyte Gertrude ase Trace (Negative) H 03/28/24 19:50 Urine RBC 0-4 /hpf (0-2) H 03/28/24 19:50 Urine WBC 0-4 /hpf (0-5) H 03/28/24 19:50 Ur Squamous Epith Cells 0-4 /hpf (0-5) H 03/28/24 19:50 Amorphous Sediment Not Reportable 03/28/24 19:50 Urine Bacteria Trace /hpf (NONE) 03/28/24 19:50 Salicylates 0.9 mg/dL (3-10) L 03/28/24 19:46 Urine Opiates Scre en Negative ng/mL (N egative) 03/28/24 19:50 Acetaminophen < 5.0 ug/mL (10-3 0) L 03/28/24 19:46 Ur Barbiturates Sc reen Negative ng/mL (N egative) 03/28/24 19:50 Ur Phencyclidine S crn Negative ng/mL (N egative) 03/28/24 19:50 Ur Amphetamines Sc reen Negative ng/mL (N egative) 03/28/24 19:50 U Benzodiazepines Scrn Negative ng/mL (N egative) 03/28/24 19:50 Urine Cocaine Scre en Negative ng/mL (N egative) 03/28/24 19:50 U Marijuana (THC) Screen Negative ng/mL (N egative) 03/28/24 19:50 Ethyl Alcohol < 10 mg/dL (0-10) 03/28/24 19:46 Vitals: Last Vital Signs Temp 98.0 F 04/06/24 06:00 Pulse 66 04/06/24 06:00 Resp 16 04/06/24 06:00 BP 109/68 04/06/24 06:00 Pulse Ox 99 04/06/24 06:00 O2 Del Method Room Air 04/06/24 06:00 Discharge Plan Discharge Patient Disposition: Home Condition: Stable Prescriptions: New Latuda 80 mg Tablet 80 mg PO 1700 30 Days Qty: 30 0RF Rx Instructions: Take with at least 500 calories after dinner. prazosin 2 mg capsule 4 mg PO BEDTIME 30 Days Qty: 60 1RF buprenorphine-naloxone 4-1 mg Film 1 film sublingual BID 7 Days Qty: 14 0RF Latuda 80 mg tablet 80 mg PO QPM Qty: 30 0RF Rx Instructions: must administer with food (at least 350 calories) Suboxone 8-2 mg film 1 film sublingual DAILY Qty: 30 0RF Invega Sustenna 117 mg/0.75 mL syringe 117 mg IM Q30D Qty: 0.75 0RF Rx Instructions: Injection due date 04/23/24 Discharge Orders: Discharge Order (Routine); Ordered 04/06/24 Ordered By: Avelino Owusu Referrals: [facility] [Other] - 1-3 days ([email or web address]) [facility]AGE DES[facility] [Other] - 05/18/24 8:00 am (Earliest available appointment) [facility] [Other] - 04/06/24 10:00 am Discharge Diet: Advance as tolerated Discharge Activity: Resume usual activity Patient Instructions: Prazosin (By mouth) (Minipress, Prazosin), Buprenorphine/Naloxone (Into the mouth) (Bunavail, Suboxone,..., Lurasidone (By mouth) (Latuda), Depression (DC), Anxiety (DC), Opioid Safety Discharge Attestations NPU Time Spent in Discharge Care*: less than 30 min Specific Discharge Activities: Specific discharge activities: educating patient and documenting/other paperwork Coding Level of Care Code Acute Code for Chg Fwd Diagnoses Unspecified psychosis F29 Depression, unspecified F32.A Alcohol abuse F10.10 Methamphetamine abuse F15.10 Suicidal ideation R45.851 Homicidal ideation R45.850 Anxiety F41.9 Schizoaffective disorder, depressive type F25.1
[2024-04-06 08:19] VITALS: BP 109/68; PULSE 66; RESP 16; TEMP 36.7; O2SAT 99
[2024-04-06] MEDS: buprenorphine-naloxone 4-1 mg Film 1 EACH SUBLINGUAL (08:39)
== END 2024-04-06 08:45 | disposition home or self-care (01) | DRG 897 ==
LOC: ER 21:09 → NP 21:53
PROVIDERS: Admitting Provider Psychiatry & Neurology Psychiatry; Emergency Provider Emergency Medicine; Visit Provider Psychiatry & Neurology Psychiatry
DX: F15.251 Other stimulant dependence with stimulant-induced psychotic disorder with hallucinations (principal); R45.851 Suicidal ideations; F11.20 Opioid dependence, uncomplicated; Z59.01 Sheltered homelessness; F10.10 Alcohol abuse, uncomplicated; R45.850 Homicidal ideations; I10 Essential (primary) hypertension; F41.9 Anxiety disorder, unspecified; F12.10 Cannabis abuse, uncomplicated; F25.1 Schizoaffective disorder, depressive type
CPT/HCPCS: 36415; 80053; 80306; 80307; 81001; 85025; 97150; 97165; 99285; J0573

== ENCOUNTER 2024-04-12 13:28 | Emergency (ER) | payer MEDICAID, SELFPAY ==
[2024-04-12 13:40] VITALS: BP 125/78; PULSE 82; RESP 16; TEMP 36.7; O2SAT 97
--- NOTE | 2024-04-12 13:59 | XRR_ITS ---
PROCEDURE INFORMATION: Exam: XR Abdomen Exam date and time: 04/12/2024 2:43 PM Age: 28 years old Clinical indication: Constipation TECHNIQUE: Imaging protocol: Radiologic exam of the abdomen. Views: 2 Views. Upright and supine views. COMPARISON: No relevant prior studies available. FINDINGS: Gastrointestinal tract: There is a nonobstructed bowel-gas pattern. Moderate volume of stool in the right hemicolon. Intraperitoneal space: No visible intra-abdominal free air. Bones/joints: Unremarkable for age. XR/XR abdomen min 2V [id number] IMPRESSION: Moderate volume of stool in the right hemicolon, otherwise unremarkable study
--- NOTE | 2024-04-12 14:36 | W.ED.ABDPA2 ---
HPI - Abdominal Pain General: Chief Complaint: Abdominal Pain Stated Complaint: Constipated Time Seen by Provider: 04/12/24 13:30 Source: patient Mode of arrival: ambulatory Limitations: no limitations History of Present Illness: Patient is a 28-year-old male presents to ED today with a complaint of constipation. Patient states he has not had a normal bowel movement in approximately 3 days or so. He states normally he will have daily bowel movements. He states he did have a small bowel movement prior to arrival but states the stool was very hard forward. He has noticed a small amount of bright red blood on the toilet paper when he strains to have a bowel movement. He has not noticed any masses/bulges or history of hemorrhoids. No anal itching. He has been taking Colace-1 tab twice daily but this does not seem to help. He states in the past he has used Dulcolax with good results but states he does not have any money to purchase this [id number]. States he has not started any new medications recently that could be contributing to his constipation. He has not ran fevers. He does not complain of abdominal pain. MD elicited complaint: other (constipation) Pertinent past history: constipation Onset (ago): day(s) Severity: mild Radiation: none Migration to: no migration Exacerbating factors: nothing Associated Symptoms: Reports constipation; Denies diarrhea, dysuria, fever(s), hematochezia, melena, nausea and vomiting Treatments prior to arrival: other (colace) Review of Systems Const: Denies: fever(s) Card: Denies: chest pain Resp: Denies: dyspnea GI: Reports: constipation and pain on defecation; Denies: abdominal pain, nausea, vomiting, diarrhea, rectal swelling, rectal itching, hematochezia, melena, mucus in stool or white/light colored stool : Denies: flank pain, difficulty urinating, dysuria, urinary frequency, urinary urgency or urinary hesitancy Musc: Denies: back pain Neuro: Denies: dizziness Physical Exam Const: COMMON NORMALS: no acute distress, patient oriented x3, no limitations, healthy appearing, alert and well nourished Resp: COMMON NORMALS: normal respiratory effort and clear to auscultation bilaterally AUSCULTATION: clear to auscultation bilaterally Cardio: COMMON NORMALS: regular rate and regular rhythm RATE: regular rate RHYTHM: regular rhythm GI: COMMON NORMALS: Normal to inspection, nondistended, normoactive bowel sounds present, Soft to palpation, non-tender, No hepatosplenomegaly present and no masses INSPECTION: Yes normal to inspection PALPATION: Yes Soft to palpation and Yes No hepatosplenomegaly present : COMMON NORMALS: Yes no CVA tenderness BLADDER/KIDNEY EXAM: Yes no CVA tenderness Back/Pelvis: COMMON NORMALS: no CVA tenderness Neuro: COMMON NORMALS: patient oriented x3 SENSORIUM/ORIENTATION: Yes alert Course Vital Signs: Vital signs: Vital Signs Temperature 98.0 F 04/12/24 13:40 Pulse Rate 71 04/12/24 14:53 Respiratory Rate 14 04/12/24 14:53 Blood Pressure 118/72 04/12/24 14:53 Pulse Oximetry 94 04/12/24 14:53 Oxygen Delivery Me thod Room Air 04/12/24 14:53 MDM - Abdominal Pain Medical Decision Making Patient here with complaints of constipation. His abdomen is nonsurgical. His vital signs are stable. Blood work is unremarkable. Abdominal XR showing no obstructive pattern. Will give RX for Dulcolax and have him continue the Colace. Can also do Miralax for a few days as well. Return precautions given. Differential Diagnosis Likely abdominal pain, constipation and small bowel obstruction Medical Records I reviewed the patient's medical records. Lab Data I reviewed the patient's lab results. 04/12/24 14:35 04/12/24 14:35 Labs/Radiology: Radiology Impressions Abdomen X-Ray 04/12/24 13:59 IMPRESSION: Moderate volume of stool in the right hemicolon, otherwise unremarkable study Laboratory Results WBC 11.09 10^3/uL (3.29-11.43) 04/12/24 14:35 RBC 4.36 10^6/uL (3.85-5.65) 04/12/24 14:35 Hgb 12.70 g/dL (11.27-16.99) 04/12/24 14:35 Hct 38.5 % (37-53) 04/12/24 14:35 MCV 88.3 fl (82-101) 04/12/24 14:35 MCH 29.1 pg (27-33) 04/12/24 14:35 MCHC 33.0 g/dL (30-55) 04/12/24 14:35 RDW 13.2 % (12.1-15.1) 04/12/24 14:35 Plt Count 330 10^3/cmm (157-399) 04/12/24 14:35 MPV 9.5 fL (7.4-10.4) 04/12/24 14:35 Neut % (Auto) 81.2 % 04/12/24 14:35 Lymph % (Auto) 13.3 % 04/12/24 14:35 [place] % (Auto) 4.3 % 04/12/24 14:35 Eos % (Auto) 0.3 % 04/12/24 14:35 Baso % (Auto) 0.4 % 04/12/24 14:35 Neut # (Auto) 9.01 10^3/uL (1.8-7.7) H 04/12/24 14:35 Lymph # (Auto) 1.5 10^3/uL (0.8-4.8) 04/12/24 14:35 [place] # (Auto) 0.5 10^3/uL (0.2-0.9) 04/12/24 14:35 Eos # (Auto) 0.0 10^3/uL (0.0-0.8) 04/12/24 14:35 Baso # (Auto) 0.0 10^3/uL (0.0-0.1) 04/12/24 14:35 Nucleated RBC % (auto) 0 % 04/12/24 14:35 Nucleated RBCs # 0.0 /100WBC 04/12/24 14:35 Sodium 137 mmol/L (136-145) 04/12/24 14:35 Potassium 3.9 mmol/L (3.5-5.1) 04/12/24 14:35 Chloride 97 mmol/L (98-107) L 04/12/24 14:35 Carbon Dioxide 29 mmol/L (22-29) 04/12/24 14:35 Anion Gap 14.9 (5-19) 04/12/24 14:35 BUN 12 mg/dL (6-20) 04/12/24 14:35 Creatinine 0.9 mg/dL (0.7-1.2) 04/12/24 14:35 GFR Calculation 123.4 mL/min (90-130) 04/12/24 14:35 Glucose 124 mg/dL (65-115) H 04/12/24 14:35 Calculated Osmolality 285 mOsm/kg (285-295) 04/12/24 14:35 Calcium 9.4 mg/dL (8.5-10.5) 04/12/24 14:35 Total Bilirubin 0.3 mg/dL (0.15-1.2) 04/12/24 14:35 AST 44 U/L (0-40) H 04/12/24 14:35 ALT 46 U/L (0-41) H 04/12/24 14:35 Alkaline Phosphatase 86 U/L (40-130) 04/12/24 14:35 Total Protein 7.9 g/dL (6.6-8.7) 04/12/24 14:35 Albumin 4.4 g/dL (3.5-5.2) 04/12/24 14:35 Globulin 3.5 g/dL (1.3-4.6) 04/12/24 14:35 All radiology interpretation(s) finalized by discharge Discharge Plan Discharge Patient Disposition: Home Clinical Impression: Constipation Qualifiers: Constipation type: unspecified constipation type Qualified Code(s): K59.00 - Constipation, unspecified Condition: Stable Prescriptions: New Dulcolax (bisacodyl) 5 mg tablet,delayed release (DR/EC) 5 mg PO BID PRN (Reason: constipation) Qty: 10 0RF No Action Latuda 80 mg Tablet 80 mg PO 1700 30 Days Qty: 30 0RF Rx Instructions: Take with at least 500 calories after dinner. prazosin 2 mg capsule 4 mg PO BEDTIME 30 Days Qty: 60 1RF Latuda 80 mg tablet 80 mg PO QPM Qty: 30 0RF Rx Instructions: must administer with food (at least 350 calories) Suboxone 8-2 mg film 1 film sublingual DAILY Qty: 30 0RF Invega Sustenna 117 mg/0.75 mL syringe 117 mg IM Q30D Qty: 0.75 0RF Rx Instructions: Injection due date 04/23/24 Discharge Orders: Discharge ED (Routine); Ordered 04/12/24 Ordered By: Sweetie Wilkerson Patient Instructions: Constipation (DC), High Fiber Diet (ED) Activity Restrictions/Additional Instructions: You need to increase your water intake as well as your fiber intake. You may take the Dulcolax prescribed to you to help with your constipation. You can take this along with the Colace that you are already taking. You can also begin taking a capful of MiraLAX twice daily with a full 8 ounce glass of water. You may need to do this regimen for several days to help evacuate your bowel. Coding Level of Care Code ED Voice Data Communications Engineer for Jessica Pleitez
[2024-04-12 14:48] LABS: Basophils % 0.4 %; Eosinophils % 0.3 %; Hematocrit 38.5 % (37-53); Lymphocytes # 1.5 10^3/uL (0.8-4.8); Lymphocytes % 13.3 %; Mean Corpuscular Hemoglobin 29.1 pg (27-33); Mean Corpuscular Volume 88.3 fl (82-101); Mean Platelet Volume 9.5 fL (7.4-10.4); Monocytes # 0.5 10^3/uL (0.2-0.9); Monocytes % 4.3 %; Neutrophils # 9.01 10^3/uL (1.8-7.7); Neutrophils % 81.2 %; Nucleated Red Blood Cells % 0 %; Platelet Count 330 10^3/cmm (157-399); Red Blood Count 4.36 10^6/uL (3.85-5.65); Red Cell Distribution Width 13.2 % (12.1-15.1); White Blood Count 11.09 10^3/uL (3.29-11.43)
[2024-04-12 14:53] VITALS: BP 118/72; PULSE 71; RESP 14; O2SAT 94
[2024-04-12 15:28] LABS: Alanine Aminotransferase 46 U/L (0-41); Albumin Level 4.4 g/dL (3.5-5.2); Alkaline Phosphatase 86 U/L (40-130); Anion Gap 14.9 (5-19); Aspartate Amino Transferase 44 U/L (0-40); Blood Urea Nitrogen 12 mg/dL (6-20); Calcium 9.4 mg/dL (8.5-10.5); Carbon Dioxide 29 mmol/L (22-29); Chloride 97 mmol/L (98-107); Creatinine Clr Calc Pharmacy 157.2412; Globulin 3.5 g/dL (1.3-4.6); Glomerular Filtration Rate 123.4 mL/min (90-130); Glucose 124 mg/dL (65-115); Osmolality Calculated 285 mOsm/kg (285-295); Potassium 3.9 mmol/L (3.5-5.1); Sodium 137 mmol/L (136-145); Total Bilirubin 0.3 mg/dL (0.15-1.2); Total Protein 7.9 g/dL (6.6-8.7)
[2024-04-12 15:47] VITALS: PULSE 75; RESP 14; O2SAT 95
[2024-04-12] MEDS: bisacodyl 5 mg Tablet 10 MG PO (15:47)
== END 2024-04-12 15:49 | disposition home or self-care (01) ==
PROVIDERS: Emergency Provider Physician Assistant
DX: K59.00 Constipation, unspecified (principal)
CPT/HCPCS: 36415; 74019; 80053; 85025; 99284

== ENCOUNTER 2024-04-12 16:20 | Inpatient (IN) | payer MEDICAID, SELFPAY ==
[2024-04-12 16:25] VITALS: BP 121/69; PULSE 73; RESP 16; TEMP 36.7; O2SAT 98
--- NOTE | 2024-04-12 16:45 | ECG_ITS ---
[facility] Test Date: 2024-04-12 Pat Name: Galo Jaime Department: Room: Gender: Male Supervisor Accounts Receivable: : 1995 Requested By: Becca Jackson Order Number: [id number] Ramos MD: Salvatore Rosenberg M.D. Measurements Intervals [place] Rate: 65 P: 54 PA: 191 QRS: 74 QRSD: 109 T: 63 QT: 397 QTc: 413 Interpretive Statements SINUS RHYTHM No previous ECG available for comparison Electronically Signed On 04-12-2024 19:05:02 CDT by Salvatore Rosenberg M.D. [id number]
[2024-04-12] MEDS: hyDROXYzine 25 mg Capsule 50 MG PO (17:53)
[2024-04-12 17:54] LABS: Basophils % 0.4 %; Eosinophils # 0.1 10^3/uL (0.0-0.8); Eosinophils % 0.5 %; Hematocrit 38.5 % (37-53); Lymphocytes # 1.8 10^3/uL (0.8-4.8); Lymphocytes % 18.8 %; Mean Corpuscular HGB Conc 32.5 g/dL (30-55); Mean Corpuscular Hemoglobin 28.5 pg (27-33); Mean Corpuscular Volume 87.7 fl (82-101); Mean Platelet Volume 9.9 fL (7.4-10.4); Monocytes # 0.4 10^3/uL (0.2-0.9); Monocytes % 4.5 %; Neutrophils # 7.39 10^3/uL (1.8-7.7); Neutrophils % 75.4 %; Nucleated Red Blood Cells % 0 %; Platelet Count 324 10^3/cmm (157-399); Red Blood Count 4.39 10^6/uL (3.85-5.65); Red Cell Distribution Width 13.4 % (12.1-15.1)
--- NOTE | 2024-04-12 18:07 | W.ED.PSYCHS ---
HPI - Psych General: Chief Complaint: Psychiatric Symptoms Stated Complaint: SI/HI Time Seen by Provider: 04/12/24 16:30 History of Present Illness: 28-year-old man with a history of depression who presents to the emergency room with suicidal ideation. He was discharged from the emergency room 10 minutes prior to his checking back in. He tells me I am feeling like I might want to harm myself or I might want to harm someone else and I think that I need to get my medications adjusted he was admitted to the psych unit here just 6 days ago and apparently was discharged to [place] at that time. He was in an alcohol recovery program apparently. Review of Systems Narrative: Constitutional symptoms: Negative except as documented in HPI. Skin symptoms: Negative except as documented in HPI. Eye symptoms: Negative except as documented in HPI. ENMT symptoms: Negative except as documented in HPI. Respiratory symptoms: Negative except as documented in HPI. Cardiovascular symptoms: Negative except as documented in HPI. Gastrointestinal symptoms: Negative except as documented in HPI. Genitourinary symptoms: Negative except as documented in HPI. Musculoskeletal symptoms: Negative except as documented in HPI. Neurologic symptoms: Negative except as documented in HPI. Psychiatric symptoms: Negative except as documented in HPI. Endocrine symptoms: Negative except as documented in HPI. Physical Exam Narrative: EXAM NARRATIVE: General: Alert. no acute distress Skin: Warm, dry Head: Normocephalic, atraumatic. Neck: Supple, trachea midline. Eye: Extraocular movements are intact. Ears, nose, mouth and throat: Oral mucosa moist. Cardiovascular: Regular rate and rhythm, Normal peripheral perfusion. Respiratory: Lungs are clear to auscultation, respirations are non-labored, breath sounds are equal, Symmetrical chest wall expansion. Gastrointestinal: Soft, Nontender, Non distended, Normal bowel sounds. Musculoskeletal: Normal ROM, no deformity. Neurological: Alert and oriented to person, place, time, and situation, No focal neurological deficit observed. Psychiatric: Cooperative, depressed, expresses suicidal ideation. Course Vital Signs: Vital signs: Vital Signs Temperature 98.0 F 04/12/24 16:25 Pulse Rate 68 04/12/24 18:19 Respiratory Rate 16 04/12/24 18:19 Blood Pressure 127/69 04/12/24 18:19 Pulse Oximetry 96 04/12/24 18:19 Oxygen Delivery Me thod Room Air 04/12/24 18:19 [facility] - Psych Medical Decision Making Differential diagnosis: Patient with reported depression and suicidal ideation. concerns for infection, alcohol intoxication, cardiac issues or other medical problems prior to psychiatric admission. Workup: labwork, ekg ordered to evaluate the pathologies and to clear the patient medically prior to psychiatric admission Lab review: - Medically cleared. - EKG shows no ischemic changes. - Blood alcohol level is negative, as well as salicylate and Tylenol. - Drug screen is negative - No signs of infection, urinalysis clear and white count is not elevated - No anemia. - BUN and creatinine are within normal limits. EKG: Time 1645. Rate 65. Normal sinus rhythm, No ST-T changes, no ectopy, normal PA & QRS intervals, This was reviewed and interpreted by myself the ER physician at 1648 Consultation: I spoke with Dr. Owusu who agrees with admission. Assessment and plan: Depression Suicidal ideation -Admission to neuropsychiatric unit for continued evaluation and treatment. - All lab work was reviewed and interpreted personally by myself, the ER physician - Evaluation and treatment of this problem were appropriate in the emergency setting Lab Data 04/12/24 17:41 04/12/24 17:41 Laboratory Results WBC 9.80 10^3/uL (3.29-11.43) 04/12/24 17:41 RBC 4.39 10^6/uL (3.85-5.65) 04/12/24 17:41 Hgb 12.50 g/dL (11.27-16.99) 04/12/24 17:41 Hct 38.5 % (37-53) 04/12/24 17:41 MCV 87.7 fl (82-101) 04/12/24 17:41 MCH 28.5 pg (27-33) 04/12/24 17:41 MCHC 32.5 g/dL (30-55) 04/12/24 17:41 RDW 13.4 % (12.1-15.1) 04/12/24 17:41 Plt Count 324 10^3/cmm (157-399) 04/12/24 17:41 MPV 9.9 fL (7.4-10.4) 04/12/24 17:41 Neut % (Auto) 75.4 % 04/12/24 17:41 Lymph % (Auto) 18.8 % 04/12/24 17:41 [place] % (Auto) 4.5 % 04/12/24 17:41 Eos % (Auto) 0.5 % 04/12/24 17:41 Baso % (Auto) 0.4 % 04/12/24 17:41 Neut # (Auto) 7.39 10^3/uL (1.8-7.7) 04/12/24 17:41 Lymph # (Auto) 1.8 10^3/uL (0.8-4.8) 04/12/24 17:41 [place] # (Auto) 0.4 10^3/uL (0.2-0.9) 04/12/24 17:41 Eos # (Auto) 0.1 10^3/uL (0.0-0.8) 04/12/24 17:41 Baso # (Auto) 0.0 10^3/uL (0.0-0.1) 04/12/24 17:41 Nucleated RBC % (auto) 0 % 04/12/24 17:41 Nucleated RBCs # 0.0 /100WBC 04/12/24 17:41 Sodium 137 mmol/L (136-145) 04/12/24 17:41 Potassium 3.7 mmol/L (3.5-5.1) 04/12/24 17:41 Chloride 97 mmol/L (98-107) L 04/12/24 17:41 Carbon Dioxide 31 mmol/L (22-29) H 04/12/24 17:41 Anion Gap 12.7 (5-19) 04/12/24 17:41 BUN 11 mg/dL (6-20) 04/12/24 17:41 Creatinine 0.8 mg/dL (0.7-1.2) 04/12/24 17:41 GFR Calculation 141.4 mL/min (90-130) H 04/12/24 17:41 Glucose 113 mg/dL (65-115) 04/12/24 17:41 Calculated Osmolality 284 mOsm/kg (285-295) L 04/12/24 17:41 Calcium 9.3 mg/dL (8.5-10.5) 04/12/24 17:41 Total Bilirubin 0.4 mg/dL (0.15-1.2) 04/12/24 17:41 AST 41 U/L (0-40) H 04/12/24 17:41 ALT 45 U/L (0-41) H 04/12/24 17:41 Alkaline Phosphatase 84 U/L (40-130) 04/12/24 17:41 Total Protein 7.6 g/dL (6.6-8.7) 04/12/24 17:41 Albumin 4.5 g/dL (3.5-5.2) 04/12/24 17:41 Globulin 3.1 g/dL (1.3-4.6) 04/12/24 17:41 TSH 0.99 uIU/mL (0.27-4.20) 04/12/24 17:41 Urine Color Yellow (Yellow) 04/12/24 17:46 Urine Appearance Clear (CLEAR) 04/12/24 17:46 Urine pH 5 (5-7) 04/12/24 17:46 Ur Specific [place] 1.020 (1.005-1.030) 04/12/24 17:46 Urine Protein Neg (Negative) 04/12/24 17:46 Urine Glucose (UA) Norm (Normal) 04/12/24 17:46 Urine Ketones Negative (Negative) 04/12/24 17:46 Urine Blood Neg (Negative) 04/12/24 17:46 Urine Nitrate Negative (Negative) 04/12/24 17:46 Urine Bilirubin Neg (Negative) 04/12/24 17:46 Urine Urobilinogen Norm mg/dL (Negative) 04/12/24 17:46 Ur Leukocyte Esterase Negative (Negative) 04/12/24 17:46 Urine RBC None /hpf (0-2) 04/12/24 17:46 Urine WBC 0-4 /hpf (0-5) H 04/12/24 17:46 Ur Squamous Epith Cells 0-4 /hpf (0-5) H 04/12/24 17:46 Amorphous Sediment Not Reportable 04/12/24 17:46 Urine Bacteria Trace /hpf (NONE) 04/12/24 17:46 Urine Mucus 1+ /hpf 04/12/24 17:46 Salicylates < 0.3 mg/dL (3-10) L 04/12/24 17:41 Urine Opiates Screen Negative ng/mL (Negative) 04/12/24 17:46 Acetaminophen < 5.0 ug/mL (10-30) L 04/12/24 17:41 Ur Barbiturates Screen Negative ng/mL (Negative) 04/12/24 17:46 Ur Phencyclidine Scrn Negative ng/mL (Negative) 04/12/24 17:46 Ur Amphetamines Screen Negative ng/mL (Negative) 04/12/24 17:46 U Benzodiazepines Scrn Negative ng/mL (Negative) 04/12/24 17:46 Urine Cocaine Screen Negative ng/mL (Negative) 04/12/24 17:46 U Marijuana (THC) Screen Negative ng/mL (Negative) 04/12/24 17:46 Ethyl Alcohol < 10 mg/dL (0-10) 04/12/24 17:41 No radiology studies performed this visit Discharge Plan Discharge Patient Disposition: Admitted As Inpatient Clinical Impression: Suicidal ideation, Depression Condition: Stable Coding Level of Care Code ED [employer] for Jessica Pleitez
[2024-04-12 18:12] LABS: Amphetamines Screen Urine Negative (Negative); Barbiturates Screen Urine Negative (Negative); Benzodiazepines Screen Urine Negative (Negative); Cocaine Screen Urine Negative (Negative); Opiate Screen Urine Negative (Negative); PCP Screen Urine Negative (Negative); THC Screen Urine Negative (Negative)
[2024-04-12 18:19] VITALS: BP 127/69; PULSE 68; RESP 16; O2SAT 96
[2024-04-12 18:28] LABS: Alanine Aminotransferase 45 U/L (0-41); Albumin Level 4.5 g/dL (3.5-5.2); Alkaline Phosphatase 84 U/L (40-130); Anion Gap 12.7 (5-19); Aspartate Amino Transferase 41 U/L (0-40); Blood Urea Nitrogen 11 mg/dL (6-20); Calcium 9.3 mg/dL (8.5-10.5); Carbon Dioxide 31 mmol/L (22-29); Chloride 97 mmol/L (98-107); Creatinine Clr Calc Pharmacy 176.8963; Globulin 3.1 g/dL (1.3-4.6); Glomerular Filtration Rate 141.4 mL/min (90-130); Glucose 113 mg/dL (65-115); Osmolality Calculated 284 mOsm/kg (285-295); Potassium 3.7 mmol/L (3.5-5.1); Sodium 137 mmol/L (136-145); Thyroid Stimulating Hormone 0.99 uIU/mL (0.27-4.20); Total Bilirubin 0.4 mg/dL (0.15-1.2); Total Protein 7.6 g/dL (6.6-8.7)
[2024-04-12 18:31] LABS: Acetaminophen < 5.0 ug/mL (10-30); Alcohol Level < 10 mg/dL (0-10); Salicylate < 0.3 mg/dL (3-10)
[2024-04-12 18:36] LABS: Bilirubin Urine Neg (Negative); Blood Urine Neg (Negative); Glucose Urine UA Norm (Normal); Ketones Urine Negative (Negative); Leukocyte Esterase Urine Negative (Negative); Nitrate Urine Negative (Negative); Protein Urine Neg (Negative); Urine Appearance Clear (CLEAR); Urine Color Yellow (Yellow); Urobilinogen Urine Norm (Negative); pH Urine 5 (5-7)
[2024-04-12 18:37] LABS: Add Urine Culture? No; Bacteria Urine TRACE /hpf; Mucus Urine 1+ /hpf; Squamous Epithelial Cell Urine 0-4 /hpf (0-5); WBC Urine 0-4 /hpf (0-5)
[2024-04-12 20:01] VITALS: BP 122/61; PULSE 71; RESP 18; O2SAT 96
[2024-04-12 21:09] VITALS: BP 133/84; PULSE 72; RESP 18; TEMP 36.6; O2SAT 98
[2024-04-13 06:00] VITALS: BP 104/66; PULSE 66; RESP 16; TEMP 36.6; O2SAT 99
[2024-04-13] MEDS: nicotine 2 mg Gum BUCCAL ×3 (07:58→19:11)
[2024-04-13] MEDS: buprenorphine-naloxone 4-1 mg Film 2 EACH SUBLINGUAL (07:58)
[2024-04-13] MEDS: nicotine 4 mg lozenge MUCOUS MEM ×3 (10:14→17:20)
[2024-04-13] MEDS: hyDROXYzine 25 mg Capsule 50 MG PO ×2 (11:59→18:30)
--- NOTE | 2024-04-13 12:30 | P.NPUHP_ITS ---
Providers/Chief Complaint 2 Admitting Physician: Avelino Owusu MD Chief Complaint: SI/HI HPI NPU History of Present Illness Galo Jaime is a 28 year old male who initially presented to the emergency department at [facility] complaining of constipation. The patient was discharged shortly thereafter on 04/12/2024 and return to the emergency department stating that he wished to have his medications adjusted. The patient had reported that he had been sent to [facility] in [place] last week and had eventually been transferred to stay at [facility] in [facility] yesterday. He states that he had been compliant with his medications and had been taking them as prescribed. He reported yesterday while staying at [facility] that he began to feel paranoid and stated that he felt like someone or something was trying to hurt him. He had reported feeling at times like someone was trying to kill him and stated that he was responding and fashion and would threaten bodily harm to any body that approached him. He was unable to provide any further information regarding this matter but requested that a medication change be made as he had stated that the Latuda that had been stabilizing him for several days here in the hospital was not effective at managing his paranoia. His urine drug screen was negative for any drugs or alcohol. He had allegedly taken his medications and refrain from the use of alcohol or drugs at this time. The patient has had greater than 6 hospitalizations in the last year across the state [facility]. Current Medications: Suboxone 8 mg daily, Latuda 80 mg at 6 PM, paliperidone 117 mg IM monthly, prazosin 4 mg at night, NPU Discharge Summary from 04/06/24 Discharge Diagnosis (1) Unspecified psychosis: Status: Acute (2) Depression, unspecified: Status: Acute (3) Alcohol abuse: Status: Acute (4) Methamphetamine abuse: Status: Resolved (5) Suicidal ideation: Status: Acute (6) Homicidal ideation: Status: Acute (7) Anxiety: Status: Acute (8) Schizoaffective disorder, depressive type: Status: Acute Reason for Visit MHE Brief History: History of Present Illness Galo Jaime is a 28 year old male who presented to the emergency department with the following report: Chief Complaint: Psychiatric Symptoms Stated Complaint: MHE Time Seen by Provider: 03/28/24 19:11 History of Present Illness: Patient brought in by police department with complaints of homicidal and suicidal ideation. Patient stated he started having these ideas a couple weeks ago. Patient has been off of his psych meds because been unable to get him. He has not taken them for months. He has been hearing voices. He has a flat affect he has calm at present he is willing to go inpatient to get help. He was admitted to the neuropsychiatric unit for definitive treatment of those issues. He is known to the neuropsychiatric unit from a past hospitalization in June of last year and an excerpt of that note is included below for context. He presents today reporting that he was discharged from here back in June and did well for about 3 months. He reports that he ran out of his medication because he moved from [place] where he was connected with [facility] to the [place] area and was not able to continue follow-up in an appropriate manner. He reports that eventually in December or January she started having symptoms again and ultimately went to the hospital a few weeks ago at [facility] and they started him on Invega and placed him on the Invega Sustenna injection which he reports he has had the first 2 loading doses. He reports that he has not had an abatement of the paranoia or psychosis since the Invega was started which she reports is different than when he was on the medication with Dr. Owusu which was Zoloft, naltrexone, Latuda and a small dose of Zyprexa at night. He reports that he was able to do well, follow-up with [facility] and use the refills to help with his sobriety as well as his mental health. He identified that he is hopeful that he can get back on medications to help him with his symptoms and that his ultimate plan is to return to [place] for some kind of sober living treatment facility. He reports that he has been in [place] recently having gone there from [employer]. He reports he does have a history of some addiction issues there but he feels comfortable that he can avoid problematic places. He also reports that he is been using marijuana and alcohol but has a past history of methamphetamine and that he wants to maintain his sobriety from all substances in hopes of getting better. We discussed the risks, benefits and alternatives of us considering whether the Invega is the appropriate medication but resuming the Latuda first and then considering restoring previous medications which she had success with. We discussed holding off judgment on the Invega for the time being but that we might be open to a different medication. We discussed the risks, benefits and alternatives of this plan and he understood and agreed to proceed as is documented in this note. Per his 06/12/2023 [facility] inpatient psychiatric discharge summary: Discharge Diagnosis (1) Unspecified psychosis: Status: Acute (2) Depression, unspecified: Status: Acute (3) Alcohol abuse: Status: Acute (4) Methamphetamine abuse: Status: Resolved Reason for Visit Reason for Visit: SI/HI Brief History: History of Present Illness Galo Jaime is a 27 year old -Spanish male who presented to the emergency department in [facility] via ambulance with reports of having thoughts of killing himself. He had stated that he was thinking about wrapping a belt around his neck in order to end his life. He had reported that he had been hearing voices for several days and stated that he had had severe depression. Patient was transferred to the neuropsychiatric unit for further evaluation and treatment in [facility]. The patient had reported that he had been initially receiving treatment in [place]. He reports that approximately 1 month ago he had spoken with his outpatient provider about receiving help for his 2 pint per day use of alcohol for the past few years. The patient was referred to a [facility]-based program in [place] known as the [facility] and upon arriving there he reported that he was prevented from taking his medications to combat depression and auditory hallucinations. The patient had reported that the hallucinations had began several years ago after he had used methamphetamine for an extended period of time. He had stated that he had been off methamphetamine but the auditory hallucinations persisted. He had also endorsed having periods of paranoia as well. He states that he had relapsed in the last 6 months 1 time but had been drinking continuously for several years. The patient had reported that he had been hospitalized another time last week in [place] and was sent to another facility [facility] which once again had prohibited the patient from receiving his medications. Patient had reported that he had left both of these hector-based facilities and had stated that he needed to get help for his depression. He endorses continued suicidal ideation and reports that he continues to hear voices telling him to run away. He and also endorses paranoia. He reports sleep continuity disruption along with hypersomnia and low energy. He did not endorse any clear history of manic symptoms. He had endorsed some feelings of worthlessness. He had reported a past history of alcohol related withdrawal symptoms. Inpatient psychiatric history patient reports 3 hospitalizations in the past. He had endorsed a past history of suicide attempts. Outpatient psychiatric history: Patient had been receiving clinic through the [facility] [place] [facility] [place] previous trials on variety of medications including Seroquel, Latuda, Zoloft, and Zyprexa. Drug and alcohol history: He has a past history of drug and alcohol treatment on an outpatient basis but only recently on an inpatient basis while had a hector- based program over the last month. He has a history of alcohol related withdrawal symptoms. Medical history: Hypertension Surgeries: None Allergies: No known drug allergies Current medications: Doxepin 25 mg at night, Latuda 40 mg with food daily, olanzapine 10 mg at night, Zoloft 50 mg daily Legal history: None Social history: Patient was born in [facility] and raised by his biological parents. He is the youngest of 6 children 3 of whom were adopted. He had reported no history of sexual physical or emotional abuse. He had graduated from high school and did not attend college. He had worked in construction previously. He had had a history of problems with alcohol consumption beginning at the age of 23. He had reported occasional marijuana use in the past. He reports that his mother had of CHF in 2016 and that his father had in July 2022. He reports living with his extended family in [place] but reports that he had been most recently residing in [facility] for less than a week. He has no children and has never been . history: None Hospital Course He slowly acclimated to the individual, group and milieu therapies provided. He came in with addiction issues as well as mental health challenges. During the stay tapered and his Latuda was titrated. Zyprexa down to 2.5 mg p.o. nightly and Latuda up to 80 mg daily. Additionally his Zoloft was increased to 100 mg p.o. daily. He demonstrated significant improvement and was able to contract for safety outside the hospital prior to discharge. He worked with the social work team and was able to secure a sober living treatment facility to which he was discharged. At the outside hospital, patient had routine laboratory studies which were within normal limits except for few outliers. Additionally there was a general medical evaluation which was also within normal limits and revealed no new acute processes. Discharge Summary: At the time of discharge, he denied psychosis or lethality . Mood and anxiety were well managed. Patient endorsed a plan to avoid all drugs of abuse and follow-up with the aftercare recommendations of the treatment team. Patient was evaluated and deemed to be absent credible lethality, and had achieved the maximum benefit from an inpatient hospitalization, so was discharged. Hospital Course Hospital Course During the hospitalization, the patient had routine laboratory studies which were within normal limits except for a few outliers.? Additionally, there was a general medical evaluation which was also within normal limits and revealed no new acute processes. ?At the time of discharge, lethality was denied and psychosis was resolving.? Mood and anxiety were well managed.? The patient endorsed a plan to avoid all drugs of abuse and follow up with the aftercare recommendations of the treatment team.? The patient was evaluated and deemed to be absent credible lethality and had achieved the maximum benefit from an inpatient hospitalization, and so was discharged. Latuda was reinitiated and titrated up to a dose of 80 mg prior to discharge with improvement in psychotic symptoms. Patient was agreeable with maintaining Invega Sustenna as previously prescribed on a monthly basis as well. Prazosin was increased to 4 mg at night to target trauma related nightmares. Suboxone was reinitiated to target opiate dependence and titrated up to 8 mg daily prior to discharge. [facility] NPU Home Medications Medication Instructions Recorded Confirmed Last Taken Type lurasidone 80 mg tablet (Latuda) 80 mg PO 1700 30 days #30 tabs 04/05/24 04/12/24 Unknown Rx prazosin 2 mg capsule 4 mg (2 x 2 mg) PO BEDTIME 30 days 04/05/24 04/12/24 Unknown Rx #60 caps buprenorphine 8 mg-naloxone 2 mg 1 film sublingual DAILY #30 ea 04/06/24 04/12/24 Unknown Rx sublingual film (Suboxone) paliperidone palmitate 117 mg/0.75 117 mg (0.75 mL) IM Q30D #0.75 mL 04/06/24 04/12/24 1 Month Ago Rx mL intramuscular syringe (Invega ~03/12/24 Sustenna) 117 mg bisacodyl 5 mg tablet,delayed 5 mg PO BID PRN constipation #10 06/10/24 06/10/24 Unknown Rx release (Dulcolax (bisacodyl)) tabs Allergies Allergy/AdvReac Type Severity Reaction Status Date / Time No Known Allergies Allergy Verified 03/28/24 19:08 Mental Status Exam 2 MSE Comments: This is an overweight versus obese pleasant -Spanish male in hospital scrubs with adequate grooming and limited eye contact. No abnormal movements except for mild psychomotor retardation. He was cooperative with exam with mild to moderate distress. His speech was slightly decreased rate and normal in volume. His mood was described as anxious and paranoid. His affect appears anxious His thought process was linear logical and goal-directed. Thought content: Patient endorsed no suicidal and endorsed vague nonspecific homicidal ideation. He did not appear to be responding to internal stimuli. He endorsed struggling with perceptual disturbances but was again nonspecific. Attention and concentration was intact and memory was mostly reliable but none were formally tested. He was alert and oriented to person and place. His insight was fair, his judgment was limited and his impulse control was impaired. 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 He was restarted on medications that have been less effective with a hospitalization a few weeks ago presenting with lethality both suicidal and homicidal ideation as well as psychosis. ?1. Encourage individual, group and milieu therapy. ?2. Recommend sober living treatment at the highest level of care to which the patient is willing to commit. 3. Continue q-15 minute checks for safety.? 4. Decrease Latuda tonight with plan to discontinue this medication. continue prazosin 4mg at night to target ptsd related nightmares. 5. . Next Invega Sustenna injection is due 04/23/2024. 6. increase Suboxone 4mg/1mg bid. 7. Concern regarding malingering, no improvement and reports of atypical hallucinations and paranoia that appears to be anxiety related. Involuntary Hold Information 2 96 Hour Hold: 96 Hour Involuntary Admission: No Attestations NPU 2 Medical Necessity Statement*: Inpatient hospitalization is medically necessary and deemed to ?be ?the clinically appropriate intervention ?at this time.? We will monitor/initiate medications and make changes as indicated.? The patient will be in the hospital for over 2 midnights.? The patient?s likely length of stay 3-4 days. Coding Level of Care Code Acute Code for Chg Fwd Diagnoses Unspecified psychosis F29 Depression, unspecified F32.A Alcohol abuse F10.10 Methamphetamine abuse F15.10 Homicidal ideation R45.850 Anxiety F41.9 Schizoaffective disorder, depressive type F25.1
[2024-04-13 14:00] VITALS: BP 115/74; PULSE 95; RESP 17; TEMP 36.8; O2SAT 98
[2024-04-13] MEDS: lurasidone 80 mg Tablet PO (17:20)
[2024-04-13] MEDS: acetaminophen 325 mg Tablet 650 MG PO (19:11)
[2024-04-13] MEDS: trazodone 50 mg Tablet PO (19:55)
[2024-04-13] MEDS: OLANZapine 5 mg ODT PO (19:55)
[2024-04-13] MEDS: prazosin 1 mg Capsule 4 MG PO (19:55)
[2024-04-13 20:00] VITALS: BP 124/71; PULSE 84; RESP 20; TEMP 36.7; O2SAT 100
[2024-04-13 22:00] VITALS: BP 124/71; PULSE 84; RESP 20; TEMP 36.7; O2SAT 100
[2024-04-14 06:00] VITALS: BP 102/64; PULSE 70; RESP 20; TEMP 36.9; O2SAT 96
[2024-04-14] MEDS: nicotine 2 mg Gum BUCCAL ×3 (08:00→16:17)
[2024-04-14] MEDS: buprenorphine-naloxone 4-1 mg Film 2 EACH SUBLINGUAL (08:01)
--- NOTE | 2024-04-14 12:41 | W.PM.NPUPNS ---
Subjective NPU Subjective: Patient is a 28-year-old -[place] African male with schizoaffective disorder, PTSD, opiate dependence, methamphetamine dependence, and recent depression admitted with concerns of increased paranoia and suicidal ideation. Patient had reported that he had been compliant with his medications and had not been using drugs. He had reported a past history of traumatic events and supported that he had some PTSD related symptoms including flashbacks and nightmares along with feeling excessively anxious in particular situations. He had reported that he had been having more recurring thoughts about a person that had been related to a traumatic event during his adulthood. He had stated that he had freaked out and was unable to manage his anxiety leading to more recurring thoughts about his trauma. Patient had reported no previous treatment with psychotherapy for PTSD symptoms. He had reported that he frequently had nightmares and flashbacks. Patient had been more isolative on the milieu. Mental Status Exam MSE Comments: This is an overweight versus obese pleasant -[place] African male in hospital scrubs with adequate grooming and limited eye contact. No abnormal movements except for mild psychomotor retardation. He was cooperative with exam with mild to moderate distress. His speech was slightly decreased rate and normal in volume. His mood was described as anxious. His affect appears anxious. His thought process was linear ,logical and goal-directed. Thought content: Patient endorsed no suicidal and endorsed vague nonspecific homicidal ideation. He did not appear to be responding to internal stimuli. No episodes of dissociation. Attention and concentration was intact and memory was mostly reliable but none were formally tested. He was alert and oriented to person and place. His insight was fair, his judgment was limited and his impulse control was impaired. Vitals/I&O/Wt Last Vital Signs Temp 98.4 F 04/14/24 06:00 Pulse 70 04/14/24 06:00 Resp 20 H 04/14/24 06:00 BP 102/64 04/14/24 06:00 Pulse Ox 96 04/14/24 06:00 O2 Del Method Room Air 04/14/24 06:00 Weight last 48 hrs Weight 107.048 kg Data NPU 04/12/24 17:41 04/12/24 17:41 A&P Assessment and plan (1) Unspecified psychosis: (2) Depression, unspecified: (3) Alcohol abuse: (4) Methamphetamine abuse: (5) Homicidal ideation: (6) Anxiety: (7) Schizoaffective disorder, depressive type: Plan Galo is a 28-year-old -[place] African male with a history of methamphetamine use disorder, PTSD, opioid dependence, Schizoaffective disorder admitted with dissociative episode, increased anxiety and paranoia likely due to PTSD exacerbation. Patient negative for drug use this time. ?1. Encourage individual, group and milieu therapy. ?2. Recommend sober living treatment at the highest level of care to which the patient is willing to commit. 3. Continue q-15 minute checks for safety.? 4. Continue tapering of latuda to 40mg introduce seroquel 50mg at night to target PTSD symptoms with plan to target to 100-200mg at night. continue prazosin 4mg at night to target ptsd related nightmares. 5. Next Invega Sustenna injection is due 04/23/2024. 6. Continue Suboxone 4mg/1mg bid. Involuntary Hold Information 96 Hour Hold: 96 Hour Involuntary Admission: No Attestations NPU Medical Necessity Statement*: Inpatient hospitalization is medically necessary and deemed to ?be ?the clinically appropriate intervention ?at this time.? We will monitor/initiate medications and make changes as indicated.? The patient?s likely length of stay 3-4 days. Coding Level of Care Code Acute Code for Chg Fwd Diagnoses Unspecified psychosis F29 Depression, unspecified F32.A Alcohol abuse F10.10 Methamphetamine abuse F15.10 Homicidal ideation R45.850 Anxiety F41.9 Schizoaffective disorder, depressive type F25.1
[2024-04-14] MEDS: sertraline 50 mg Tablet 25 MG PO (13:07)
[2024-04-14] MEDS: nicotine 4 mg lozenge MUCOUS MEM ×3 (13:54→20:27)
[2024-04-14 14:00] VITALS: BP 115/72; PULSE 96; RESP 18; TEMP 36.7; O2SAT 98
[2024-04-14] MEDS: lurasidone 20 mg Tablet 40 MG PO (16:17)
[2024-04-14] MEDS: hyDROXYzine 25 mg Capsule 50 MG PO (17:47)
[2024-04-14 20:19] VITALS: BP 134/80; PULSE 69; RESP 18; TEMP 36.9; O2SAT 99
[2024-04-14] MEDS: quetiapine XR (24HR) 50 mg Tablet PO (20:27)
[2024-04-14] MEDS: prazosin 1 mg Capsule 4 MG PO (20:27)
[2024-04-15 06:00] VITALS: BP 107/68; PULSE 76; RESP 16; TEMP 36.7; O2SAT 95
[2024-04-15] MEDS: buprenorphine-naloxone 4-1 mg Film 2 EACH SUBLINGUAL (08:03)
[2024-04-15] MEDS: sertraline 50 mg Tablet 25 MG PO (08:03)
[2024-04-15] MEDS: nicotine 4 mg lozenge MUCOUS MEM (08:40)
[2024-04-15] MEDS: nicotine 2 mg Gum BUCCAL ×3 (10:17→18:32)
--- NOTE | 2024-04-15 13:55 | P.NPUPN_ITS ---
Subjective NPU 2 Subjective: Patient presented today reporting that he is doing fine. We talked about the potential discharge to [facility] after the cross taper of his medications is complete and he is functioning at a reasonable level. Given their logistics we discussed the likelihood that he would be discharging like on Friday. But he denied any side effects to his medications and was focused on making sure he gets medications at discharge. Mental Status Exam 2 MSE Comments: This is an overweight versus obese pleasant -[place] male in hospital scrubs with adequate grooming and limited eye contact. No abnormal movements except for mild psychomotor retardation. He was cooperative with exam with mild distress. His speech was slightly decreased rate and normal in volume. His mood was described as anxious. His affect appears anxious. His thought process was linear ,logical and goal-directed. Thought content: Patient denied suicidal or homicidal ideation. There were no current delusions reported or noted and he did not appear to be responding to internal stimuli. He denied auditory and visual hallucinations attention and concentration was intact and memory was mostly reliable but none were formally tested. He was alert and oriented to person and place and purpose. His insight was limited, his judgment was limited and his impulse control was impaired. Vitals/I&O/Wt Last Vital Signs Temp 98.1 F 04/15/24 06:00 Pulse 76 04/15/24 06:00 Resp 16 04/15/24 06:00 BP 107/68 04/15/24 06:00 Pulse Ox 95 04/15/24 06:00 O2 Del Method Room Air 04/15/24 06:00 Data NPU 04/12/24 17:41 04/12/24 17:41 A&P Assessment and plan (1) Unspecified psychosis: (2) Depression, unspecified: (3) Alcohol abuse: (4) Methamphetamine abuse: (5) Homicidal ideation: (6) Anxiety: (7) Schizoaffective disorder, depressive type: Plan Galo is a 28-year-old -[place] male with a history of methamphetamine use disorder, PTSD, opioid dependence, Schizoaffective disorder admitted with dissociative episode, increased anxiety and paranoia likely due to PTSD exacerbation. Patient negative for drug use this time. ?1. Encourage individual, group and milieu therapy. ?2. Recommend sober living treatment at the highest level of care to which the patient is willing to commit. 3. Continue q-15 minute checks for safety.? 4. Continue tapering of latuda to 40mg introduce seroquel 50mg at night to target PTSD symptoms with plan to target to 100-200mg at night. continue prazosin 4mg at night to target ptsd related nightmares. 5. Next Invega Sustenna injection is due 04/23/2024. 6. Continue Suboxone 4mg/1mg bid. Involuntary Hold Information 2 96 Hour Hold: 96 Hour Involuntary Admission: No Attestations NPU 2 Medical Necessity Statement*: Inpatient hospitalization is medically necessary and?the clinically appropriate intervention at this time.? We will monitor/initiate medications and make changes as indicated.? The patient?s likely length of stay 3-5days. Coding Level of Care Code Acute Code for Chg Fwd Diagnoses Unspecified psychosis F29 Depression, unspecified F32.A Alcohol abuse F10.10 Methamphetamine abuse F15.10 Homicidal ideation R45.850 Anxiety F41.9 Schizoaffective disorder, depressive type F25.1
[2024-04-15 14:00] VITALS: BP 106/63; PULSE 61; RESP 18; TEMP 36.4; O2SAT 97
[2024-04-15] MEDS: lurasidone 20 mg Tablet 40 MG PO (18:30)
[2024-04-15] MEDS: hyDROXYzine 25 mg Capsule 50 MG PO (18:45)
[2024-04-15] MEDS: quetiapine XR (24HR) 50 mg Tablet PO (21:02)
[2024-04-15] MEDS: prazosin 1 mg Capsule 4 MG PO (21:02)
[2024-04-15 21:31] VITALS: BP 134/76; PULSE 85; RESP 16; O2SAT 98
[2024-04-16 06:00] VITALS: BP 101/45; PULSE 78; RESP 16; O2SAT 95
--- NOTE | 2024-04-16 07:40 | P.NPUPN_ITS ---
Subjective NPU 2 Subjective: Patient presented today reporting that things are going fine. He reports that he is working with the social work team and they are working with [facility] and they reportedly have a bed available for him on Friday. He reports being optimistic about this reality and looking forward to establishing appropriate treatment connections in the area. He denies any side effects of the medication and we discussed the possibility of decreasing his Latuda again tomorrow. Mental Status Exam 2 MSE Comments: This is an overweight versus obese pleasant -[place] male in hospital scrubs with adequate grooming and limited eye contact. No abnormal movements except for mild psychomotor retardation. He was cooperative with exam with mild distress. His speech was slightly decreased rate and normal in volume. His mood was described as anxious. His affect appears anxious. His thought process was linear ,logical and goal-directed. Thought content: Patient denied suicidal or homicidal ideation. There were no current delusions reported or noted and he did not appear to be responding to internal stimuli. He denied auditory and visual hallucinations attention and concentration was intact and memory was mostly reliable but none were formally tested. He was alert and oriented to person and place and purpose. His insight was limited, his judgment was limited and his impulse control was impaired. Vitals/I&O/Wt Last Vital Signs Temp 97.6 F 04/15/24 14:00 Pulse 78 04/16/24 06:00 Resp 16 04/16/24 06:00 BP 101/45 04/16/24 06:00 Pulse Ox 95 04/16/24 06:00 O2 Del Method Room Air 04/16/24 06:00 Data NPU 04/12/24 17:41 04/12/24 17:41 A&P Assessment and plan (1) Unspecified psychosis: (2) Depression, unspecified: (3) Alcohol abuse: (4) Methamphetamine abuse: (5) Homicidal ideation: (6) Anxiety: (7) Schizoaffective disorder, depressive type: Plan Galo is a 28-year-old -[place] male with a history of methamphetamine use disorder, PTSD, opioid dependence, Schizoaffective disorder admitted with dissociative episode, increased anxiety and paranoia likely due to PTSD exacerbation. Patient negative for drug use this time. ?1. Encourage individual, group and milieu therapy. ?2. Recommend sober living treatment at the highest level of care to which the patient is willing to commit. 3. Continue q-15 minute checks for safety.? 4. Continue tapering of latuda to 40mg introduce seroquel 50mg at night to target PTSD symptoms with plan to target to 100-200mg at night. continue prazosin 4mg at night to target ptsd related nightmares. 5. Next Invega Sustenna injection is due 04/23/2024. 6. Continue Suboxone 4mg/1mg bid. Involuntary Hold Information 2 96 Hour Hold: 96 Hour Involuntary Admission: No Attestations NPU 2 Medical Necessity Statement*: Inpatient hospitalization is medically necessary and?the clinically appropriate intervention at this time.? We will monitor/initiate medications and make changes as indicated.? The patient?s likely length of stay 3 days. Coding Level of Care Code Acute Code for Chg Fwd Diagnoses Unspecified psychosis F29 Depression, unspecified F32.A Alcohol abuse F10.10 Methamphetamine abuse F15.10 Homicidal ideation R45.850 Anxiety F41.9 Schizoaffective disorder, depressive type F25.1
[2024-04-16] MEDS: buprenorphine-naloxone 4-1 mg Film 2 EACH SUBLINGUAL (08:26)
[2024-04-16] MEDS: nicotine 4 mg lozenge MUCOUS MEM ×4 (08:27→20:45)
[2024-04-16] MEDS: sertraline 50 mg Tablet 25 MG PO (08:27)
[2024-04-16] MEDS: bisacodyl 5 mg Tablet PO (08:27)
[2024-04-16] MEDS: nicotine 2 mg Gum BUCCAL ×3 (10:30→18:54)
[2024-04-16 13:26] VITALS: BP 118/66; PULSE 76; RESP 17; TEMP 36.7; O2SAT 98
[2024-04-16] MEDS: hyDROXYzine 25 mg Capsule 50 MG PO (16:05)
[2024-04-16] MEDS: lurasidone 20 mg Tablet 40 MG PO (17:35)
[2024-04-16] MEDS: OLANZapine 5 mg ODT PO (18:32)
[2024-04-16 20:35] VITALS: BP 128/86; PULSE 97; RESP 18; TEMP 37.1; O2SAT 98
[2024-04-16] MEDS: quetiapine XR (24HR) 50 mg Tablet PO (20:45)
[2024-04-16] MEDS: acetaminophen 325 mg Tablet 650 MG PO (21:05)
[2024-04-16] MEDS: prazosin 1 mg Capsule 4 MG PO (21:05)
[2024-04-17 06:00] VITALS: BP 92/50; PULSE 86; RESP 18; TEMP 36.7; O2SAT 97
[2024-04-17] MEDS: sertraline 50 mg Tablet 25 MG PO (08:04)
[2024-04-17] MEDS: nicotine 2 mg Gum BUCCAL ×3 (08:04→17:44)
[2024-04-17] MEDS: buprenorphine-naloxone 4-1 mg Film 2 EACH SUBLINGUAL (08:04)
--- NOTE | 2024-04-17 08:07 | PC.NURSE ---
patient denies si, hi, avh, anxiety and depression. patient said that he is doing okay today.
[2024-04-17] MEDS: nicotine 4 mg lozenge MUCOUS MEM (11:22)
--- NOTE | 2024-04-17 11:50 | P.NPUPN_ITS ---
Subjective NPU 2 Subjective: Patient presented today reporting that he is doing okay. He is wishful that he could be released to [facility] [place] but we explained that we have to be able to get a hold of them and then they give us the word that the bed is available and that they will not be available until Friday. But he reports being optimistic about discharging and getting connected with community resources and starting to build a functioning existence here. He denies any side effects to the medications or any problems with any changes. Mental Status Exam 2 MSE Comments: This is an overweight versus obese pleasant -[place] male in hospital scrubs with adequate grooming and limited eye contact. No abnormal movements except for mild psychomotor retardation. He was cooperative with exam with mild distress. His speech was slightly decreased rate and normal in volume. His mood was described as anxious. His affect appears anxious. His thought process was linear ,logical and goal-directed. Thought content: Patient denied suicidal or homicidal ideation. There were no current delusions reported or noted and he did not appear to be responding to internal stimuli. He denied auditory and visual hallucinations attention and concentration was intact and memory was mostly reliable but none were formally tested. He was alert and oriented to person and place and purpose. His insight was limited, his judgment was limited and his impulse control was impaired. Vitals/I&O/Wt Last Vital Signs Temp 98.0 F 04/17/24 06:00 Pulse 86 04/17/24 06:00 Resp 18 04/17/24 06:00 BP 92/50 04/17/24 06:00 Pulse Ox 97 04/17/24 06:00 O2 Del Method Room Air 04/17/24 06:00 Data NPU 04/12/24 17:41 04/12/24 17:41 A&P Assessment and plan (1) Unspecified psychosis: (2) Depression, unspecified: (3) Alcohol abuse: (4) Methamphetamine abuse: (5) Homicidal ideation: (6) Anxiety: (7) Schizoaffective disorder, depressive type: Plan Galo is a 28-year-old -[place] male with a history of methamphetamine use disorder, PTSD, opioid dependence, Schizoaffective disorder admitted with dissociative episode, increased anxiety and paranoia likely due to PTSD exacerbation. Patient negative for drug use this time. ?1. Encourage individual, group and milieu therapy. ?2. Recommend sober living treatment at the highest level of care to which the patient is willing to commit. 3. Continue q-15 minute checks for safety.? 4. Continue tapering of latuda to 40mg introduce seroquel 50mg at night to target PTSD symptoms with plan to target to 100-200mg at night. continue prazosin 4mg at night to target ptsd related nightmares. 5. Next Invega Sustenna injection is due 04/23/2024. 6. Continue Suboxone 4mg/1mg bid. 7. Tentative plan for discharge on Friday to [facility]. Involuntary Hold Information 2 96 Hour Hold: 96 Hour Involuntary Admission: No Attestations NPU 2 Medical Necessity Statement*: Inpatient hospitalization is medically necessary and?the clinically appropriate intervention at this time.? We will monitor/initiate medications and make changes as indicated.? The patient?s likely length of stay 2 days. Coding Level of Care Code Acute Code for Chg Fwd Diagnoses Unspecified psychosis F29 Depression, unspecified F32.A Alcohol abuse F10.10 Methamphetamine abuse F15.10 Homicidal ideation R45.850 Anxiety F41.9 Schizoaffective disorder, depressive type F25.1
[2024-04-17 14:00] VITALS: BP 123/72; PULSE 59; RESP 16; TEMP 36.6; O2SAT 98
[2024-04-17] MEDS: lurasidone 20 mg Tablet 40 MG PO (17:52)
[2024-04-17] MEDS: OLANZapine 5 mg ODT PO (19:29)
[2024-04-17 19:40] VITALS: BP 132/79; PULSE 90; RESP 18; TEMP 36.9; O2SAT 97
[2024-04-17] MEDS: trazodone 50 mg Tablet PO (20:20)
[2024-04-17] MEDS: quetiapine XR (24HR) 50 mg Tablet PO (20:20)
[2024-04-17] MEDS: prazosin 1 mg Capsule 4 MG PO (20:20)
[2024-04-18 06:00] VITALS: BP 107/70; PULSE 73; RESP 18; TEMP 36.7; O2SAT 99
[2024-04-18] MEDS: nicotine 2 mg Gum BUCCAL ×3 (07:22→20:15)
[2024-04-18] MEDS: buprenorphine-naloxone 4-1 mg Film 2 EACH SUBLINGUAL (08:14)
[2024-04-18] MEDS: sertraline 50 mg Tablet 25 MG PO (08:15)
--- NOTE | 2024-04-18 12:41 | P.NPUPN_ITS ---
Subjective NPU 2 Subjective: Patient presented today reporting that he is feeling fine. He reports that he is optimistic about getting out tomorrow to go to [facility]. We discussed continuing the cross titration that Dr. Owusu initiated and likely discontinuing Latuda at discharge, increasing Seroquel XR to 100 mg p.o. nightly at discharge and likely making sure he gets the Invega Sustenna injection early. He denies any side effects of the medication and reports he feels he is ready to move onto outpatient services. Mental Status Exam 2 MSE Comments: This is an overweight versus obese pleasant -[place] male in hospital scrubs with adequate grooming and limited eye contact. No abnormal movements except for mild psychomotor retardation. He was cooperative with exam with mild distress. His speech was slightly decreased rate and normal in volume. His mood was described as anxious. His affect appears anxious. His thought process was linear ,logical and goal-directed. Thought content: Patient denied suicidal or homicidal ideation. There were no current delusions reported or noted and he did not appear to be responding to internal stimuli. He denied auditory and visual hallucinations attention and concentration was intact and memory was mostly reliable but none were formally tested. He was alert and oriented to person and place and purpose. His insight was limited, his judgment was limited and his impulse control was impaired. Vitals/I&O/Wt Last Vital Signs Temp 98.1 F 04/18/24 06:00 Pulse 73 04/18/24 06:00 Resp 18 04/18/24 06:00 BP 107/70 04/18/24 06:00 Pulse Ox 99 04/18/24 06:00 O2 Del Method Room Air 04/17/24 14:00 Weight last 48 hrs Weight 113.035 kg Data NPU 04/12/24 17:41 04/12/24 17:41 A&P Assessment and plan (1) Unspecified psychosis: (2) Depression, unspecified: (3) Alcohol abuse: (4) Methamphetamine abuse: (5) Homicidal ideation: (6) Anxiety: (7) Schizoaffective disorder, depressive type: Plan Galo is a 28-year-old -[place] male with a history of methamphetamine use disorder, PTSD, opioid dependence, Schizoaffective disorder admitted with dissociative episode, increased anxiety and paranoia likely due to PTSD exacerbation. Patient negative for drug use this time. ?1. Encourage individual, group and milieu therapy. ?2. Recommend sober living treatment at the highest level of care to which the patient is willing to commit. 3. Continue q-15 minute checks for safety.? 4. Continue tapering of latuda to 40mg introduce seroquel 50mg at night to target PTSD symptoms with plan to target to 100-200mg at night. Will likely increase Seroquel to 100 mg p.o. nightly at discharge and discontinue Latuda. Continue prazosin 4mg at night to target ptsd related nightmares. 5. Next Invega Sustenna injection is due 04/23/2024. 6. Continue Suboxone 4mg/1mg bid. 7. Tentative plan for discharge on Friday to . Involuntary Hold Information 2 96 Hour Hold: 96 Hour Involuntary Admission: No Attestations NPU 2 Medical Necessity Statement*: Inpatient hospitalization is medically necessary and?the clinically appropriate intervention at this time.? We will monitor/initiate medications and make changes as indicated.? The patient?s likely length of stay 2 days. Coding Level of Care Code Acute Code for Chg Fwd Diagnoses Unspecified psychosis F29 Depression, unspecified F32.A Alcohol abuse F10.10 Methamphetamine abuse F15.10 Homicidal ideation R45.850 Anxiety F41.9 Schizoaffective disorder, depressive type F25.1
[2024-04-18 14:00] VITALS: BP 97/57; PULSE 66; RESP 16; TEMP 36.8; O2SAT 98
[2024-04-18] MEDS: lurasidone 20 mg Tablet PO (17:57)
[2024-04-18] MEDS: nicotine 4 mg lozenge MUCOUS MEM (17:57)
[2024-04-18 19:59] VITALS: BP 123/78; PULSE 81; RESP 18; TEMP 36.6; O2SAT 98
[2024-04-18] MEDS: prazosin 1 mg Capsule 4 MG PO (20:15)
[2024-04-18] MEDS: quetiapine XR (24HR) 50 mg Tablet PO (20:15)
[2024-04-19 06:00] VITALS: BP 105/61; PULSE 63; RESP 17; O2SAT 98
[2024-04-19] MEDS: sertraline 50 mg Tablet 25 MG PO (07:43)
[2024-04-19] MEDS: nicotine 2 mg Gum BUCCAL ×2 (07:43→12:08)
[2024-04-19] MEDS: buprenorphine-naloxone 4-1 mg Film 2 EACH SUBLINGUAL (07:48)
[2024-04-19] MEDS: nicotine 4 mg lozenge MUCOUS MEM (09:57)
--- NOTE | 2024-04-19 12:13 | W.PM.NPUDCS ---
Diagnoses at Discharge Discharge Diagnosis (1) Unspecified psychosis: Status: Acute (2) Depression, unspecified: Status: Resolved (3) Alcohol abuse: Status: Acute (4) Methamphetamine abuse: Status: Resolved (5) Homicidal ideation: Status: Resolved (6) Anxiety: Status: Acute (7) Schizoaffective disorder, depressive type: Status: Acute Reason for Visit Reason for Visit: SI/HI Involuntary Hold Information 96 Hour Hold: 96 Hour Involuntary Admission: No Mental Status Exam MSE Comments: This is an overweight versus obese pleasant -[place] male in hospital scrubs with adequate grooming and limited eye contact. No abnormal movements except for mild psychomotor retardation. He was cooperative with exam with mild distress. His speech was slightly decreased rate and normal in volume. His mood was described as anxious. His affect appears anxious. His thought process was linear ,logical and goal-directed. Thought content: Patient denied suicidal or homicidal ideation. There were no current delusions reported or noted and he did not appear to be responding to internal stimuli. He denied auditory and visual hallucinations attention and concentration was intact and memory was mostly reliable but none were formally tested. He was alert and oriented to person and place and purpose. His insight was limited, his judgment was limited and his impulse control was impaired. Discharge Data Studies Completed and Pending: Laboratory Results WBC 9.80 10^3/uL (3.2 9-11.43) 04/12/24 17:41 RBC 4.39 10^6/uL (3.8 5-5.65) 04/12/24 17:41 Hgb 12.50 g/dL (11.27 -16.99) 04/12/24 17:41 Hct 38.5 % (37-53) 04/12/24 17:41 MCV 87.7 fl (82-101) 04/12/24 17:41 MCH 28.5 pg (27-33) 04/12/24 17:41 MCHC 32.5 g/dL (30-55) 04/12/24 17:41 RDW 13.4 % (12.1-15.1 ) 04/12/24 17:41 Plt Count 324 10^3/cmm (157 -399) 04/12/24 17:41 MPV 9.9 fL (7.4-10.4) 04/12/24 17:41 Neut % (Auto) 75.4 % 04/12/24 17:41 Lymph % (Auto) 18.8 % 04/12/24 17:41 Wolfe % (Auto) 4.5 % 04/12/24 17:41 Eos % (Auto) 0.5 % 04/12/24 17:41 Baso % (Auto) 0.4 % 04/12/24 17:41 Neut # (Auto) 7.39 10^3/uL (1.8 -7.7) 04/12/24 17:41 Lymph # (Auto) 1.8 10^3/uL (0.8- 4.8) 04/12/24 17:41 Wolfe # (Auto) 0.4 10^3/uL (0.2- 0.9) 04/12/24 17:41 Eos # (Auto) 0.1 10^3/uL (0.0- 0.8) 04/12/24 17:41 Baso # (Auto) 0.0 10^3/uL (0.0- 0.1) 04/12/24 17:41 Nucleated RBC % (a uto) 0 % 04/12/24 17:41 Nucleated RBCs # 0.0 /100WBC 04/12/24 17:41 Sodium 137 mmol/L (136-1 45) 04/12/24 17:41 Potassium 3.7 mmol/L (3.5-5 .1) 04/12/24 17:41 Chloride 97 mmol/L (98-107 ) L 04/12/24 17:41 Carbon Dioxide 31 mmol/L (22-29) H 04/12/24 17:41 Anion Gap 12.7 (5-19) 04/12/24 17:41 BUN 11 mg/dL (6-20) 04/12/24 17:41 Creatinine 0.8 mg/dL (0.7-1. 2) 04/12/24 17:41 GFR Calculation 141.4 mL/min (90- 130) H 04/12/24 17:41 Glucose 113 mg/dL (65-115 ) 04/12/24 17:41 Calculated Osmolal ity 284 mOsm/kg (285- 295) L 04/12/24 17:41 Calcium 9.3 mg/dL (8.5-10 .5) 04/12/24 17:41 Total Bilirubin 0.4 mg/dL (0.15-1 .2) 04/12/24 17:41 AST 41 U/L (0-40) H 04/12/24 17:41 ALT 45 U/L (0-41) H 04/12/24 17:41 Alkaline Phosphata se 84 U/L (40-130) 04/12/24 17:41 Total Protein 7.6 g/dL (6.6-8.7 ) 04/12/24 17:41 Albumin 4.5 g/dL (3.5-5.2 ) 04/12/24 17:41 Globulin 3.1 g/dL (1.3-4.6 ) 04/12/24 17:41 TSH 0.99 uIU/mL (0.27 -4.20) 04/12/24 17:41 Urine Color Yellow (Yellow) 04/12/24 17:46 Urine Appearance Clear (CLEAR) 04/12/24 17:46 Urine pH 5 (5-7) 04/12/24 17:46 Ur Specific Gravit y 1.020 (1.005-1.0 30) 04/12/24 17:46 Urine Protein Neg (Negative) 04/12/24 17:46 Urine Glucose (UA) Norm (Normal) 04/12/24 17:46 Urine Ketones Negative (Negati ve) 04/12/24 17:46 Urine Blood Neg (Negative) 04/12/24 17:46 Urine Nitrate Negative (Negati ve) 04/12/24 17:46 Urine Bilirubin Neg (Negative) 04/12/24 17:46 Urine Urobilinogen Norm mg/dL (Negat jigar) 04/12/24 17:46 Ur Leukocyte Gertrude ase Negative (Negati ve) 04/12/24 17:46 Urine RBC None /hpf (0-2) 04/12/24 17:46 Urine WBC 0-4 /hpf (0-5) H 04/12/24 17:46 Ur Squamous Epith Cells 0-4 /hpf (0-5) H 04/12/24 17:46 Amorphous Sediment Not Reportable 04/12/24 17:46 Urine Bacteria Trace /hpf (NONE) 04/12/24 17:46 Urine Mucus 1+ /hpf 04/12/24 17:46 Salicylates < 0.3 mg/dL (3-10 ) L 04/12/24 17:41 Urine Opiates Scre en Negative ng/mL (N egative) 04/12/24 17:46 Acetaminophen < 5.0 ug/mL (10-3 0) L 04/12/24 17:41 Ur Barbiturates Sc reen Negative ng/mL (N egative) 04/12/24 17:46 Ur Phencyclidine S crn Negative ng/mL (N egative) 04/12/24 17:46 Ur Amphetamines Sc reen Negative ng/mL (N egative) 04/12/24 17:46 U Benzodiazepines Scrn Negative ng/mL (N egative) 04/12/24 17:46 Urine Cocaine Scre en Negative ng/mL (N egative) 04/12/24 17:46 U Marijuana (THC) Screen Negative ng/mL (N egative) 04/12/24 17:46 Ethyl Alcohol < 10 mg/dL (0-10) 04/12/24 17:41 Vitals: Last Vital Signs Temp 97.8 F 04/18/24 19:59 Pulse 63 04/19/24 06:00 Resp 17 04/19/24 06:00 BP 105/61 04/19/24 06:00 Pulse Ox 98 04/19/24 06:00 O2 Del Method Room Air 04/18/24 14:00 Discharge Plan Discharge Patient Disposition: Home Condition: Stable Prescriptions: New sertraline 50 mg Tablet 50 mg PO DAILY 30 Days Qty: 30 1RF quetiapine 50 mg Tablet Extended Release 24 Hr 100 mg PO 1999 30 Days Qty: 60 1RF Continued bisacodyl [Dulcolax (bisacodyl)] 5 mg tablet,delayed release (DR/EC) 5 mg PO BID PRN (Reason: constipation) Qty: 10 0RF prazosin 2 mg capsule 4 mg PO BEDTIME 30 Days Qty: 60 1RF Suboxone 8-2 mg film 1 film sublingual DAILY Qty: 30 0RF Invega Sustenna 117 mg/0.75 mL syringe 117 mg IM Q30D 30 Days Qty: 0.75 2RF Rx Instructions: Injection due date 04/23/24 Discontinued lurasidone [Latuda] 80 mg Tablet 80 mg PO 1700 30 Days Qty: 30 0RF Rx Instructions: Take with at least 500 calories after dinner. Discharge Orders: Discharge Order (Routine); Ordered 04/19/24 Ordered By: Yonny Santiago Discharge Diet: Regular Discharge Activity: Resume usual activity Patient Instructions: Opioid Safety Discharge Attestations NPU Time Spent in Discharge Care*: less than 30 min Specific Discharge Activities: Specific discharge activities: educating patient, discussing with home health care case manager/social workers/dc planners, documenting/other paperwork and evaluating patient/reviewing data Coding Level of Care Code Acute Code for Chg Fwd Diagnoses Unspecified psychosis F29 Depression, unspecified F32.A Alcohol abuse F10.10 Methamphetamine abuse F15.10 Homicidal ideation R45.850 Anxiety F41.9 Schizoaffective disorder, depressive type F25.1
[2024-04-19 12:37] VITALS: BP 105/61; PULSE 63; RESP 17; O2SAT 98
== END 2024-04-19 13:17 | disposition home or self-care (01) | DRG 885 ==
LOC: ER 19:28 → NP 19:39
PROVIDERS: Admitting Provider Psychiatry & Neurology Psychiatry; Emergency Provider Emergency Medicine; Visit Provider Psychiatry & Neurology Psychiatry
DX: F29 Unspecified psychosis not due to a substance or known physiological condition (principal); R45.851 Suicidal ideations; Z59.01 Sheltered homelessness; F11.20 Opioid dependence, uncomplicated; R45.850 Homicidal ideations; F10.10 Alcohol abuse, uncomplicated; F15.10 Other stimulant abuse, uncomplicated; F41.9 Anxiety disorder, unspecified; F25.1 Schizoaffective disorder, depressive type; F43.10 Post-traumatic stress disorder, unspecified
CPT/HCPCS: 36415; 80053; 80306; 80307; 81001; 84443; 85025; 93005; 97150; 97165; 99285; J0573

== ENCOUNTER 2024-04-19 14:02 | Emergency (ER) | payer MEDICAID, SELFPAY ==
[2024-04-19 15:14] VITALS: BP 133/81; PULSE 77; RESP 14; TEMP 37.2; O2SAT 97
--- NOTE | 2024-04-19 16:11 | W.ED.HA ---
HPI - Headache General: Chief Complaint: Headache Stated Complaint: head pain Time Seen by Provider: 04/19/24 15:40 Source: patient Mode of arrival: ambulatory Limitations: no limitations History of Present Illness: Patient is a 28-year-old male here for complaints of a headache. He states he has a longstanding history of headaches and has experienced them for years. He states he normally treats with Tylenol. He states he is homeless and does not have any Tylenol. Patient was just released from [facility] today. He is also wondering if we can call a Medicaid ride to [place] for him. MD elicited complaint: headache Pertinent past history: migraines Onset (ago): hour(s) Severity: mild Exacerbating factors: none Relieving factors: nothing Associated symptoms: Reports no associated symptoms; Deny fever(s), malaise, nausea, rash or vomiting Treatments prior to arrival: none Review of Systems Const: Denies: fever(s), chills, body aches, fatigue or malaise GI: Denies: nausea or vomiting Musc: Denies: neck pain Skin/Breast: Denies: rash Neuro: Reports: headache(s); Denies: numbness in extremities, weakness in extremities, sensory changes or dizziness Physical Exam Const: COMMON NORMALS: no acute distress, average body habitus, patient oriented x3, no limitations, alert and well nourished ORIENTATION/CONSCIOUSNESS: Yes awake, Yes oriented to person, Yes oriented to place and Yes oriented to time Neuro: JEROME COMA SCALE: document GCS findings [place] coma scale eye opening: Spontaneous [place] coma scale verbal response: Orientated [place] coma scale motor response: Obey commands [place] coma scale total score: 15 COMMON NORMALS: patient oriented x3, CN's II-XII intact bilaterally, moves all extremities, no focal motor deficits, no sensory deficits noted and gait normal SENSORIUM/ORIENTATION: Yes alert, Yes oriented to person, Yes oriented to place and Yes oriented to time Course Vital Signs: Vital signs: Vital Signs Temperature 98.9 F 04/19/24 15:14 Pulse Rate 77 04/19/24 15:14 Respiratory Rate 14 04/19/24 15:14 Blood Pressure 133/81 04/19/24 15:14 Pulse Oximetry 97 04/19/24 15:14 MDM - Headache Medical Decision Making Patient will be provided Tylenol. We will have him speak to nursing staff and/or registration to see if they can help with transportation. Differential Diagnosis Likely migraine and headache Medical Records I reviewed the patient's medical records. No radiology studies performed this visit Discharge Plan Discharge Patient Disposition: Home Clinical Impression: Headache Qualifiers: Headache type: unspecified Headache chronicity pattern: acute headache Intractability: not intractable Qualified Code(s): R51.9 - Headache, unspecified Condition: Stable Prescriptions: No Action bisacodyl [Dulcolax (bisacodyl)] 5 mg tablet,delayed release (DR/EC) 5 mg PO BID PRN (Reason: constipation) Qty: 10 0RF prazosin 2 mg capsule 4 mg PO BEDTIME 30 Days Qty: 60 1RF Suboxone 8-2 mg film 1 film sublingual DAILY Qty: 30 0RF sertraline 50 mg Tablet 50 mg PO DAILY 30 Days Qty: 30 1RF quetiapine 50 mg Tablet Extended Release 24 Hr 100 mg PO 2000 30 Days Qty: 60 1RF Invega Sustenna 117 mg/0.75 mL syringe 117 mg IM Q30D 30 Days Qty: 0.75 2RF Rx Instructions: Injection due date 04/23/24 Discharge Orders: Discharge ED (Routine); Ordered 04/19/24 Ordered By: Sweetie Wilkerson Patient Instructions: Headache Coding Level of Care Code ED Senior Fund Accountant for Jessica Pleitez
[2024-04-19] MEDS: acetaminophen 500 mg Tablet 1000 MG PO (16:17)
== END 2024-04-19 16:22 | disposition home or self-care (01) ==
PROVIDERS: Emergency Provider Physician Assistant
DX: R51.9 Headache, unspecified (principal)
CPT/HCPCS: 99283

== ENCOUNTER 2024-04-19 21:00 | Emergency (ER) | payer MEDICAID, SELFPAY ==
[2024-04-19 21:27] VITALS: BP 137/76; PULSE 77; RESP 14; TEMP 37.2; O2SAT 98
== END 2024-04-19 23:08 | disposition left against medical advice (07) ==
LOC: ER 21:02
PROVIDERS: Emergency Provider Family Medicine
DX: Z53.21 Procedure and treatment not carried out due to patient leaving prior to being seen by health care provider (principal)

== ENCOUNTER 2024-04-20 06:32 | Emergency (ER) | payer MEDICAID, SELFPAY ==
[2024-04-20 06:40] VITALS: BP 164/85; PULSE 81; RESP 18; TEMP 36.6; O2SAT 93; BMI 33.9
--- NOTE | 2024-04-20 06:45 | W.ED.BACK ---
HPI - Back Pain/Injury General: Chief Complaint: Back Pain/Injury Stated Complaint: Headache,Back pain Time Seen by Provider: 04/20/24 06:35 Source: patient Mode of arrival: ambulatory History of Present Illness: 28-year-old male presents emergency room with complaint of headache and backache. Reviewed the chart patient does not live in this area he has been in and out of the ER in the psychiatric unit frequently of late. He was discharged yesterday from [facility] and then presented to the emergency room. He was wanting to get a ride back to [place] he is also complaining of a headache. He was given Tylenol yesterday and then ultimately discharged. MD elicited complaint: back pain Pertinent past history: prior back pain Associated symptoms: Deny abdominal pain, arthralgias, chills, change in bowel habits, difficulty walking, dysuria, fatigue, fecal incontinence, fever(s), hematuria, myalgias, nausea, numbness, syncope, tingling/numbness/burning, urinary frequency, urinary urgency, vomiting or weakness Review of Systems Const: Denies: fever(s), chills or fatigue Card: Denies: chest pain or syncope Resp: Denies: dyspnea GI: Denies: abdominal pain, nausea, vomiting, fecal incontinence or change in bowel habits : Denies: dysuria, urinary frequency, urinary urgency or hematuria Musc: Denies: neck pain or back pain Skin/Breast: Denies: rash Neuro: Denies: difficulty walking PFSH ED PFSH: Medical History Depression Schizoaffective disorder, depressive type Alcohol abuse Physical Exam Const: GENERAL APPEARANCE: cooperative and comfortable ORIENTATION/CONSCIOUSNESS: Yes awake, Yes oriented to person, Yes oriented to place and Yes oriented to time HENMT: COMMON NORMALS: normocephalic, atraumatic and hearing grossly normal bilaterally HEAD & SCALP: normocephalic and atraumatic Resp: COMMON NORMALS: normal respiratory effort, No retractions, No use of accessory muscles and clear to auscultation bilaterally AUSCULTATION: clear to auscultation bilaterally Cardio: COMMON NORMALS: regular rate, regular rhythm and No murmurs present (Cardio) RATE: regular rate RHYTHM: regular rhythm GI: COMMON NORMALS: Soft to palpation and No hepatosplenomegaly present AUSCULTATION: Yes normoactive bowel sounds PALPATION: Yes Soft to palpation, No Tenderness to palpation present (GI), No Guarding due to palpation present (GI) and Yes No hepatosplenomegaly present Extremity: COMMON NORMALS: normal to inspection, capillary refill normal, no clubbing, cyanosis or edema, no calf tenderness and no pedal edema Neuro: SENSORIUM/ORIENTATION: Yes oriented to person, Yes oriented to place and Yes oriented to time OTHER: No focal neurologic deficits are noted full strength in all extremities no facial weakness, normal symmetry of facial movements. Straight leg raising negative dorsoplantar flexion 5/5 Skin: COMMON NORMALS: no rashes or lesions noted GENERAL SKIN EXAM: no rashes or lesions noted Course Vital Signs: Vital signs: Vital Signs Temperature 97.8 F 04/20/24 06:40 Pulse Rate 81 04/20/24 06:40 Respiratory Rate 18 04/20/24 06:40 Blood Pressure 164/85 04/20/24 06:40 Pulse Oximetry 93 04/20/24 06:40 Oxygen Delivery Me thod Room Air 04/20/24 06:40 MDM - Back Pain/Injury Medical Decision Making Patient given Tylenol for the back pain he has no focal neurologic deficits and no red flag symptoms at this time. Rejected TILE MACHINE OPERATOR you today to set up a ride to the [facility] at the time of discharge patient did not leg. Last night he did come back wanting a ride to [place] this morning is asking for the same. Will discharge him from the ER and refer him over to the crisis intervention center to see if they can help with getting his transportation needs met additionally I am concerned that with his previous admission it was due to not taking his medications suspect this may become another issue predisposing him to another readmission would like for them to review diet and ensure that he has adequate medications. Patient did not wish to wait in the exam room until the crisis intervention open. He went to the waiting room. I will later had staff check waiting room for the patient . Appears that he had left the building gotten a ride with [id number]. If he comes back we can reassess as needed but suspect he may benefit from crisis intervention. Medical Records I reviewed the patient's medical records. Labs I reviewed the patient's lab results. (Reviewed previous labs) No radiology studies performed this visit Discharge Plan Discharge Patient Disposition: Home Clinical Impression: Anxiety Headache Qualifiers: Headache type: unspecified Headache chronicity pattern: acute headache Intractability: not intractable Qualified Code(s): R51.9 - Headache, unspecified Condition: Stable Prescriptions: No Action bisacodyl [Dulcolax (bisacodyl)] 5 mg tablet,delayed release (DR/EC) 5 mg PO BID PRN (Reason: constipation) Qty: 10 0RF prazosin 2 mg capsule 4 mg PO BEDTIME 30 Days Qty: 60 1RF Suboxone 8-2 mg film 1 film sublingual DAILY Qty: 30 0RF sertraline 50 mg Tablet 50 mg PO DAILY 30 Days Qty: 30 1RF quetiapine 50 mg Tablet Extended Release 24 Hr 100 mg PO 2000 30 Days Qty: 60 1RF Invega Sustenna 117 mg/0.75 mL syringe 117 mg IM Q30D 30 Days Qty: 0.75 2RF Rx Instructions: Injection due date 04/23/24 Discharge Orders: Discharge ED (Routine); Ordered 04/20/24 Ordered By: John Taylor Discharge Diet: Usual diet Discharge Activity: Increase activity as tolerated Patient Instructions: Opioid Safety, Pain Management Activity Restrictions/Additional Instructions: Thank you for choosing [facility] for your healthcare needs today. It is very important that you follow up as instructed or that you return to the Emergency Department should you have concerns or if your condition changes or worsens in any way. You were seen today in the emergency room for complaint of headache. Your neurologic exam was normal. He had also complained of some anxiety. You are given Tylenol and hydroxyzine in the emergency room to help with the symptoms. You would requested for us to make transportation arrangements for you back to [place]. The crisis stabilization unit is better suited to manage that issue. Will be discharged from the emergency room directed there for assistance with further services. Coding Level of Care Code ED Commodities Manager for Jessica Pleitez
[2024-04-20] MEDS: hyDROXYzine 25 mg Capsule PO (07:04)
[2024-04-20] MEDS: acetaminophen 325 mg Tablet 650 MG PO (07:04)
== END 2024-04-20 07:14 | disposition home or self-care (01) ==
PROVIDERS: Emergency Provider Family Medicine
DX: R51.9 Headache, unspecified (principal); F41.9 Anxiety disorder, unspecified
CPT/HCPCS: 99283

== ENCOUNTER 2024-04-20 14:34 | Emergency (ER) | payer MEDICAID, SELFPAY ==
[2024-04-20 14:36] VITALS: BP 145/83; PULSE 99; TEMP 37.1; O2SAT 97; BMI 33.9
--- NOTE | 2024-04-20 14:36 | ED_ITS ---
HPI - General Adult 2 General: Chief complaint: Psychiatric Symptoms Stated complaint: SI/HI Time Seen by Provider: 04/20/24 14:35 History of Present Illness: 28 yo male presents to the emergency [facility] for the third time in 24 hours. He was discharged yesterday from [facility] at the time of discharge he had arrangements set up to go to [facility] and he did not go there and instead left the grounds he returned later wanted arrangements to be made for him to go to [place] we are unable to do that we did treat his headache he returned this morning with a similar complaint we are going to get him set up for crisis stabilization as soon as they open to help get follow through on his [facility] you discharge plans. He left the ER setting waiting for them to open. He returns now stating he is homicidal and suicidal. Associated symptoms: Deny chest pain, dyspnea or rash Review of Systems 2 Const: Denies: fever(s) or chills Card: Denies: chest pain Resp: Denies: dyspnea GI: Denies: abdominal pain : Denies: dysuria, urinary frequency or urinary urgency Musc: Denies: neck pain or back pain Skin/Breast: Denies: rash PFSH ED 2 PFSH: Medical History Depression Schizoaffective disorder, depressive type Alcohol abuse Physical Exam 2 Const: COMMON NORMALS: no acute distress GENERAL APPEARANCE: cooperative and comfortable ORIENTATION/CONSCIOUSNESS: Yes awake, Yes oriented to person, Yes oriented to place and Yes oriented to time HENMT: COMMON NORMALS: normocephalic, atraumatic and hearing grossly normal bilaterally HEAD & SCALP: normocephalic and atraumatic Resp: COMMON NORMALS: normal respiratory effort, No retractions and No use of accessory muscles Neuro: SENSORIUM/ORIENTATION: Yes oriented to person, Yes oriented to place and Yes oriented to time Skin: COMMON NORMALS: no rashes or lesions noted GENERAL SKIN EXAM: no rashes or lesions noted Course 2 Vital Signs: Vital signs: Vital Signs Temperature 98.7 F 04/20/24 14:36 Pulse Rate 99 04/20/24 14:36 Blood Pressure 145/83 04/20/24 14:36 Pulse Oximetry 97 04/20/24 14:36 Oxygen Delivery Me thod Room Air 04/20/24 14:36 MDM - General Adult Medical Decision Making Contacted Dr. Santiago she is very familiar with the patient he had multiple admissions in our facility and another facilities locally. It is an option for this patient. He contacted the community planner from [facility] you came and seen the patient. Dr. Santiago is recommending discharge to [facility] his feel the admitting the patient will provide any significant help to the patient. They were able to get a bed reserved at [facility]. Will have him transferred there via [id number] transportation. Continue his follow-up as scheduled and he was discharged from [facility] yesterday. Medical Records I reviewed the patient's medical records. Lab Data I reviewed the patient's lab results. 04/20/24 14:57 04/20/24 14:57 Laboratory Results WBC 7.48 10^3/uL (3.29-11.43) 04/20/24 14:57 RBC 4.44 10^6/uL (3.85-5.65) 04/20/24 14:57 Hgb 12.80 g/dL (11.27-16.99) 04/20/24 14:57 Hct 38.9 % (37-53) 04/20/24 14:57 MCV 87.6 fl (82-101) 04/20/24 14:57 MCH 28.8 pg (27-33) 04/20/24 14:57 MCHC 32.9 g/dL (30-55) 04/20/24 14:57 RDW 13.6 % (12.1-15.1) 04/20/24 14:57 Plt Count 290 10^3/cmm (157-399) 04/20/24 14:57 MPV 10.1 fL (7.4-10.4) 04/20/24 14:57 Neut % (Auto) 58.7 % 04/20/24 14:57 Lymph % (Auto) 29.3 % 04/20/24 14:57 [place] % (Auto) 8.7 % 04/20/24 14:57 Eos % (Auto) 2.1 % 04/20/24 14:57 Baso % (Auto) 0.7 % 04/20/24 14:57 Neut # (Auto) 4.39 10^3/uL (1.8-7.7) 04/20/24 14:57 Lymph # (Auto) 2.2 10^3/uL (0.8-4.8) 04/20/24 14:57 [place] # (Auto) 0.7 10^3/uL (0.2-0.9) 04/20/24 14:57 Eos # (Auto) 0.2 10^3/uL (0.0-0.8) 04/20/24 14:57 Baso # (Auto) 0.1 10^3/uL (0.0-0.1) 04/20/24 14:57 Nucleated RBC % (auto) 0 % 04/20/24 14:57 Nucleated RBCs # 0.0 /100WBC 04/20/24 14:57 Sodium 136 mmol/L (136-145) 04/20/24 14:57 Potassium 3.8 mmol/L (3.5-5.1) 04/20/24 14:57 Chloride 97 mmol/L (98-107) L 04/20/24 14:57 Carbon Dioxide 28 mmol/L (22-29) 04/20/24 14:57 Anion Gap 14.8 (5-19) 04/20/24 14:57 BUN 7 mg/dL (6-20) 04/20/24 14:57 Creatinine 0.9 mg/dL (0.7-1.2) 04/20/24 14:57 GFR Calculation 123.4 mL/min (90-130) 04/20/24 14:57 Glucose 91 mg/dL (65-115) 04/20/24 14:57 Calculated Osmolality 280 mOsm/kg (285-295) L 04/20/24 14:57 Calcium 9.2 mg/dL (8.5-10.5) 04/20/24 14:57 Total Bilirubin 0.6 mg/dL (0.15-1.2) 04/20/24 14:57 AST 31 U/L (0-40) 04/20/24 14:57 ALT 28 U/L (0-41) 04/20/24 14:57 Alkaline Phosphatase 103 U/L (40-130) 04/20/24 14:57 Total Protein 7.9 g/dL (6.6-8.7) 04/20/24 14:57 Albumin 4.5 g/dL (3.5-5.2) 04/20/24 14:57 Globulin 3.4 g/dL (1.3-4.6) 04/20/24 14:57 Salicylates 2.2 mg/dL (3-10) L 04/20/24 14:57 Acetaminophen < 5.0 ug/mL (10-30) L 04/20/24 14:57 Ethyl Alcohol < 10 mg/dL (0-10) 04/20/24 14:57 No radiology studies performed this visit Discharge Plan Discharge Patient Disposition: Home Clinical Impression: Anxiety, Schizoaffective disorder, depressive type Condition: Stable Prescriptions: No Action bisacodyl [Dulcolax (bisacodyl)] 5 mg tablet,delayed release (DR/EC) 5 mg PO BID PRN (Reason: constipation) Qty: 10 0RF prazosin 2 mg capsule 4 mg PO BEDTIME 30 Days Qty: 60 1RF Suboxone 8-2 mg film 1 film sublingual DAILY Qty: 30 0RF sertraline 50 mg Tablet 50 mg PO DAILY 30 Days Qty: 30 1RF quetiapine 50 mg Tablet Extended Release 24 Hr 100 mg PO 2000 30 Days Qty: 60 1RF Invega Sustenna 117 mg/0.75 mL syringe 117 mg IM Q30D 30 Days Qty: 0.75 2RF Rx Instructions: Injection due date 04/23/24 Discharge Orders: Discharge ED (Routine); Ordered 04/20/24 Ordered By: John Taylor Discharge Diet: Usual diet Discharge Activity: Resume usual activity Patient Instructions: Opioid Safety, Pain Management Activity Restrictions/Additional Instructions: You were seen in the emergency room today. We discussed your case with Dr. Santiago who had discharged yesterday. In reviewing your case and your recent stay he did not feel that hospitalization was recommended at this time. He recommends that you be discharged from the ER and follow-up as previously advised at the time of your discharge. Will make arrangements for transportation to the [facility] they have reserved a bed for you there. Coding Level of Care Code ED Fish Hatchery Assistant for Jessica Pleitez
[2024-04-20 15:19] LABS: Basophils # 0.1 10^3/uL (0.0-0.1); Basophils % 0.7 %; Eosinophils # 0.2 10^3/uL (0.0-0.8); Eosinophils % 2.1 %; Hematocrit 38.9 % (37-53); Lymphocytes # 2.2 10^3/uL (0.8-4.8); Lymphocytes % 29.3 %; Mean Corpuscular HGB Conc 32.9 g/dL (30-55); Mean Corpuscular Hemoglobin 28.8 pg (27-33); Mean Corpuscular Volume 87.6 fl (82-101); Mean Platelet Volume 10.1 fL (7.4-10.4); Monocytes # 0.7 10^3/uL (0.2-0.9); Monocytes % 8.7 %; Neutrophils # 4.39 10^3/uL (1.8-7.7); Neutrophils % 58.7 %; Nucleated Red Blood Cells % 0 %; Platelet Count 290 10^3/cmm (157-399); Red Blood Count 4.44 10^6/uL (3.85-5.65); Red Cell Distribution Width 13.6 % (12.1-15.1); White Blood Count 7.48 10^3/uL (3.29-11.43)
[2024-04-20 15:36] LABS: Alanine Aminotransferase 28 U/L (0-41); Albumin Level 4.5 g/dL (3.5-5.2); Alkaline Phosphatase 103 U/L (40-130); Anion Gap 14.8 (5-19); Aspartate Amino Transferase 31 U/L (0-40); Blood Urea Nitrogen 7 mg/dL (6-20); Calcium 9.2 mg/dL (8.5-10.5); Carbon Dioxide 28 mmol/L (22-29); Chloride 97 mmol/L (98-107); Creatinine Clr Calc Pharmacy 161.7097; Globulin 3.4 g/dL (1.3-4.6); Glomerular Filtration Rate 123.4 mL/min (90-130); Glucose 91 mg/dL (65-115); Osmolality Calculated 280 mOsm/kg (285-295); Potassium 3.8 mmol/L (3.5-5.1); Salicylate 2.2 mg/dL (3-10); Sodium 136 mmol/L (136-145); Total Bilirubin 0.6 mg/dL (0.15-1.2); Total Protein 7.9 g/dL (6.6-8.7)
[2024-04-20 15:38] LABS: Acetaminophen < 5.0 ug/mL (10-30); Alcohol Level < 10 mg/dL (0-10)
== END 2024-04-20 15:55 | disposition home or self-care (01) ==
PROVIDERS: Emergency Provider Family Medicine
DX: F41.9 Anxiety disorder, unspecified (principal); F25.1 Schizoaffective disorder, depressive type
CPT/HCPCS: 36415; 80053; 80307; 85025; 99283

== ENCOUNTER 2024-04-21 06:15 | Emergency (ER) | payer MEDICAID, SELFPAY ==
[2024-04-21 06:16] VITALS: BP 144/80; PULSE 65; RESP 16; TEMP 36.4; O2SAT 100; BMI 33.9
--- NOTE | 2024-04-21 06:40 | XRR_ITS ---
PROCEDURE INFORMATION: Exam: XR Right Shoulder Exam date and time: 04/21/2024 7:16 AM Age: 28 years old Clinical indication: Pain; Shoulder; Right; Additional info: Pain - no trauma TECHNIQUE: Imaging protocol: Radiologic exam of the right shoulder. Views: 2 or more views. COMPARISON: CR (CHEST, ) 04/21/2024 7:15 AM FINDINGS: Bones/joints: Normal. No fracture or dislocation. No significant arthritic changes. Soft tissues: Normal. XR/XR shoulder RT min 2V* [id number] IMPRESSION: No acute findings.
--- NOTE | 2024-04-21 06:41 | CTR_ITS ---
PROCEDURE INFORMATION: Exam: CT Abdomen And Pelvis Without Contrast Exam date and time: 04/21/2024 7:51 AM Age: 28 years old Clinical indication: Abdominal pain; Localized; Right upper quadrant (ruq); Additional info: Abd pain TECHNIQUE: Imaging protocol: Computed tomography of the abdomen and pelvis without contrast. Radiation optimization: All CT scans at this facility use at least one of these dose optimization techniques: automated exposure control; mA and/or kV adjustment per patient size (includes targeted exams where dose is matched to clinical indication); or iterative reconstruction. COMPARISON: CR XR abdomen min 2V [id number] 04/12/2024 2:43 PM RADIATION DOSE METRICS: Total DLP (mGy-cm): 968.25 FINDINGS: Liver: Normal. No mass. Gallbladder and bile ducts: Normal. No calcified stones. No ductal dilation. Pancreas: Normal. No ductal dilation. Spleen: Normal. No splenomegaly. Adrenal glands: Normal. No mass. Kidneys and ureters: Normal. No hydronephrosis. Stomach and bowel: Unremarkable. No obstruction. No mucosal thickening. Appendix: No evidence of appendicitis. Intraperitoneal space: Unremarkable. No free air. No significant fluid collection. Vasculature: Unremarkable. No abdominal aortic aneurysm. Lymph nodes: Unremarkable. No enlarged lymph nodes. Urinary bladder: Unremarkable as visualized. Reproductive: Unremarkable as visualized. Bones/joints: Unremarkable. No acute fracture. Soft tissues: Unremarkable. CT/CT abdomen pelvis con [id number] IMPRESSION: No acute findings.
--- NOTE | 2024-04-21 06:41 | XRR_ITS ---
PROCEDURE INFORMATION: Exam: XR Chest Exam date and time: 04/21/2024 7:15 AM Age: 28 years old Clinical indication: Cough and dyspnea; Additional info: Dyspnea/cough TECHNIQUE: Imaging protocol: Radiologic exam of the chest. Views: 1 view. COMPARISON: CR XR abdomen min 2V [id number] 04/12/2024 2:43 PM FINDINGS: Lungs: Unremarkable. No consolidation. Pleural spaces: Unremarkable. No pleural effusion. No pneumothorax. Heart/Mediastinum: Unremarkable. No cardiomegaly. Bones/joints: Unremarkable. XR/XR chest 1V portable [id number] IMPRESSION: No acute findings.
--- NOTE | 2024-04-21 06:42 | ED_ITS ---
HPI - General Adult 2 General: Chief complaint: Headache Stated complaint: SMITH Time Seen by Provider: 04/21/24 06:32 Source: patient Mode of arrival: EMS History of Present Illness: 28-year-old male presents to the emergen cy room complaining initially of a headache. When he talked to the nurse who told her that he had a headache. He had not taken anything for the headache. When I came in to see him he states he had right upper quadrant abdominal pain from his fatty liver disease that he had right shoulder pain as well as a headache. He denies any vomiting or diarrhea but has been nauseous. He denies using any alcohol recently. He denies anything that exacerbates or relieves his symptoms. He does have a history of alcohol use. He denies any homicidal or suicidal ideation at this time. Patient was recently discharged from [facility] after prolonged stay. At the time of discharge arrangements were made for him to go to [facility]. He had 3 visits yesterday, at the third visit he left without being seen. His first visit was for headache his second visit he complained of suicidal homicidal ideation contacted Dr. Santiago who is very familiar with the patient he did not feel admission would be helpful to the patient's condition he has been admitted multiple times and instead he had staff removed PU COVID out and reviewed the discharge instructions from the day before made arrangements for him to go to [facility]. Onset (ago): hour(s) Location: head and abdomen Severity: mild Relieving factors: none Exacerbating factors: none Associated symptoms: Reports headache(s) and nausea; Deny chest pain, confusion, cough, diaphoresis, decreased appetite, dyspnea, fevers/chills, malaise, rash, palpitations, seizures, short of breath, syncope, vomiting or weakness Review of Systems 2 Const: Denies: fever(s), chills, malaise or diaphoresis Card: Denies: chest pain, palpitations or syncope Resp: Denies: dyspnea GI: Reports: abdominal pain and nausea; Denies: vomiting or diarrhea : Denies: dysuria, urinary frequency or urinary urgency Musc: Denies: neck pain or back pain Skin/Breast: Denies: rash Neuro: Reports: headache(s); Denies: confusion PFSH ED 2 PFSH: Medical History Depression Schizoaffective disorder, depressive type Alcohol abuse Physical Exam 2 Const: COMMON NORMALS: no acute distress GENERAL APPEARANCE: cooperative and comfortable ORIENTATION/CONSCIOUSNESS: Yes awake, Yes oriented to person, Yes oriented to place and Yes oriented to time HENMT: COMMON NORMALS: normocephalic, atraumatic and hearing grossly normal bilaterally HEAD & SCALP: normocephalic and atraumatic Resp: COMMON NORMALS: normal respiratory effort, No retractions, No use of accessory muscles and clear to auscultation bilaterally AUSCULTATION: clear to auscultation bilaterally Cardio: COMMON NORMALS: regular rate, regular rhythm and No murmurs present (Cardio) RATE: regular rate RHYTHM: regular rhythm GI: COMMON NORMALS: Soft to palpation and No hepatosplenomegaly present A USCULTATION: Yes normoactive bowel sounds PALPATION: Yes Soft to palpation, No Tenderness to palpation present (GI), No Guarding due to palpation present (GI) and Yes No hepatosplenomegaly present Extremity: COMMON NORMALS: normal to inspection, capillary refill normal, no clubbing, cyanosis or edema, no calf tenderness and no pedal edema Neuro: SENSORIUM/ORIENTATION: Yes oriented to person, Yes oriented to place and Yes oriented to time Skin: COMMON NORMALS: no rashes or lesions noted GENERAL SKIN EXAM: no rashes or lesions noted Course 2 Vital Signs: Vital signs: Vital Signs Temperature 97.6 F 04/21/24 06:16 Pulse Rate 65 04/21/24 06:16 Respiratory Rate 16 04/21/24 06:16 Blood Pressure 144/80 04/21/24 06:16 Pulse Oximetry 98 04/21/24 09:31 Oxygen Delivery Me thod Room Air 04/21/24 08:27 MDM - General Adult Medical Decision Making Labs and imaging reviewed no clinically significant findings. Patient has had multiple ER visits since being discharged from inpatient psych. Discussed symptoms with Dr. Santiago he is not recommending readmission at this time. At this particular visit patient does not have any specific psychiatric issues he is complaining of. Concerned about his recurrent visits to the ER and the high likelihood of him not being compliant with his medications which will lead to another admission. His symptoms have resolved with the time his workup is completed has not had any nausea or vomiting. We asked him to wait I was going to have the social human services assistants for an opinion COVID to review his discharge planning to make sure he could follow through on everything patient did not wish to wait and he left after discharge. Evidently he told staff he has a ride to [facility]. Medical Records I reviewed the patient's medical records. Lab Data I reviewed the patient's lab results. 04/21/24 07:03 04/21/24 07:03 Radiology Impressions Shoulder X-Ray 04/21/24 06:40 IMPRESSION: No acute findings. Abdomen/Pelvis CT 04/21/24 06:41 IMPRESSION: No acute findings. Chest X-Ray 04/21/24 06:41 IMPRESSION: No acute findings. Laboratory Results WBC 7.18 10^3/uL (3.29-11.43) 04/21/24 07:03 RBC 4.91 10^6/uL (3.85-5.65) 04/21/24 07:03 Hgb 14.20 g/dL (11.27-16.99) 04/21/24 07:03 Hct 43.9 % (37-53) 04/21/24 07:03 MCV 89.4 fl (82-101) 04/21/24 07:03 MCH 28.9 pg (27-33) 04/21/24 07:03 MCHC 32.3 g/dL (30-55) 04/21/24 07:03 RDW 13.8 % (12.1-15.1) 04/21/24 07:03 Plt Count 285 10^3/cmm (157-399) 04/21/24 07:03 MPV 10.1 fL (7.4-10.4) 04/21/24 07:03 Neut % (Auto) 58.2 % 04/21/24 07:03 Lymph % (Auto) 28.7 % 04/21/24 07:03 [place] % (Auto) 7.8 % 04/21/24 07:03 Eos % (Auto) 3.9 % 04/21/24 07:03 Baso % (Auto) 0.8 % 04/21/24 07:03 Neut # (Auto) 4.18 10^3/uL (1.8-7.7) 04/21/24 07:03 Lymph # (Auto) 2.1 10^3/uL (0.8-4.8) 04/21/24 07:03 [place] # (Auto) 0.6 10^3/uL (0.2-0.9) 04/21/24 07:03 Eos # (Auto) 0.3 10^3/uL (0.0-0.8) 04/21/24 07:03 Baso # (Auto) 0.1 10^3/uL (0.0-0.1) 04/21/24 07:03 Nucleated RBC % (auto) 0 % 04/21/24 07:03 Nucleated RBCs # 0.0 /100WBC 04/21/24 07:03 Sodium 136 mmol/L (136-145) 04/21/24 07:03 Potassium 4.2 mmol/L (3.5-5.1) 04/21/24 07:03 Chloride 98 mmol/L (98-107) 04/21/24 07:03 Carbon Dioxide 26 mmol/L (22-29) 04/21/24 07:03 Anion Gap 16.2 (5-19) 04/21/24 07:03 BUN 7 mg/dL (6-20) 04/21/24 07:03 Creatinine 0.9 mg/dL (0.7-1.2) 04/21/24 07:03 GFR Calculation 123.4 mL/min (90-130) 04/21/24 07:03 Glucose 90 mg/dL (65-115) 04/21/24 07:03 Calculated Osmolality 280 mOsm/kg (285-295) L 04/21/24 07:03 Calcium 9.4 mg/dL (8.5-10.5) 04/21/24 07:03 Total Bilirubin 0.9 mg/dL (0.15-1.2) 04/21/24 07:03 AST 34 U/L (0-40) 04/21/24 07:03 ALT 30 U/L (0-41) 04/21/24 07:03 Alkaline Phosphatase 113 U/L (40-130) 04/21/24 07:03 Total Protein 8.5 g/dL (6.6-8.7) 04/21/24 07:03 Albumin 4.7 g/dL (3.5-5.2) 04/21/24 07:03 Globulin 3.8 g/dL (1.3-4.6) 04/21/24 07:03 Lipase 27 U/L (13-60) 04/21/24 07:03 Urine Color Yellow (Yellow) 04/21/24 08:31 Urine Appearance Clear (CLEAR) 04/21/24 08:31 Urine pH 5 (5-7) 04/21/24 08:31 Ur Specific [place] 1.025 (1.005-1.030) 04/21/24 08:31 Urine Protein Neg (Negative) 04/21/24 08:31 Urine Glucose (UA) Norm (Normal) 04/21/24 08:31 Urine Ketones Negative (Negative) 04/21/24 08:31 Urine Blood Neg (Negative) 04/21/24 08:31 Urine Nitrate Negative (Negative) 04/21/24 08:31 Urine Bilirubin Neg (Negative) 04/21/24 08:31 Urine Urobilinogen Norm mg/dL (Negative) 04/21/24 08:31 Ur Leukocyte Esterase Negative (Negative) 04/21/24 08:31 All radiology interpretation(s) finalized by discharge Discharge Plan Discharge Patient Disposition: Home Clinical Impression: Abdominal pain Headache Qualifiers: Headache type: unspecified Headache chronicity pattern: acute headache I ntractability: not intractable Qualified Code(s): R51.9 - Headache, unspecified Condition: Stable Prescriptions: No Action bisacodyl [Dulcolax (bisacodyl)] 5 mg tablet,delayed release (DR/EC) 5 mg PO BID PRN (Reason: constipation) Qty: 10 0RF prazosin 2 mg capsule 4 mg PO BEDTIME 30 Days Qty: 60 1RF Suboxone 8-2 mg film 1 film sublingual DAILY Qty: 30 0RF sertraline 50 mg Tablet 50 mg PO DAILY 30 Days Qty: 30 1RF quetiapine 50 mg Tablet Extended Release 24 Hr 100 mg PO 2000 30 Days Qty: 60 1RF Invega Sustenna 117 mg/0.75 mL syringe 117 mg IM Q30D 30 Days Qty: 0.75 2RF Rx Instructions: Injection due date 04/23/24 Discharge Orders: Discharge ED (Routine); Ordered 04/21/24 Ordered By: John Taylor Discharge Diet: Usual diet Discharge Activity: Resume usual activity Patient Instructions: Abdominal Pain (ED), Opioid Safety, Pain Management Activity Restrictions/Additional Instructions: Thank you for choosing [facility] for your healthcare needs today. It is very important that you follow up as instructed or that you return to the Emergency Department should you have concerns or if your condition changes or worsens in any way. You were seen today for abdominal pain and headache. CT of your abdomen did not show any acute abnormalities laboratory tests were unremarkable. Recommend you follow-up with your primary care doctor. Also strongly recommend you follow-up with the discharge instructions you are given at the time of your discharge from neuropsychiatry inpatient unit. Coding Level of Care Code ED Field Reimbursement Manager for Jessica Pleitez
--- NOTE | 2024-04-21 07:09 | ECG_ITS ---
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 Measurements Intervals [place] Rate: 63 P: 52 HI: 222 QRS: 69 QRSD: 108 T: 62 QT: 433 QTc: 446 Interpretive Statements SINUS RHYTHM WITH FIRST DEGREE AV BLOCK Compared to ECG 04/12/2024 16:45:23 First degree AV block now present Electronically Signed On 04-23-2024 13:26:53 CDT by Jordan Chahal M.D. [id number]
[2024-04-21 07:12] LABS: Basophils # 0.1 10^3/uL (0.0-0.1); Basophils % 0.8 %; Eosinophils # 0.3 10^3/uL (0.0-0.8); Eosinophils % 3.9 %; Hematocrit 43.9 % (37-53); Lymphocytes # 2.1 10^3/uL (0.8-4.8); Lymphocytes % 28.7 %; Mean Corpuscular HGB Conc 32.3 g/dL (30-55); Mean Corpuscular Hemoglobin 28.9 pg (27-33); Mean Corpuscular Volume 89.4 fl (82-101); Mean Platelet Volume 10.1 fL (7.4-10.4); Monocytes # 0.6 10^3/uL (0.2-0.9); Monocytes % 7.8 %; Neutrophils # 4.18 10^3/uL (1.8-7.7); Neutrophils % 58.2 %; Nucleated Red Blood Cells % 0 %; Platelet Count 285 10^3/cmm (157-399); Red Blood Count 4.91 10^6/uL (3.85-5.65); Red Cell Distribution Width 13.8 % (12.1-15.1); White Blood Count 7.18 10^3/uL (3.29-11.43)
[2024-04-21 07:35] LABS: Alanine Aminotransferase 30 U/L (0-41); Albumin Level 4.7 g/dL (3.5-5.2); Alkaline Phosphatase 113 U/L (40-130); Aspartate Amino Transferase 34 U/L (0-40); Blood Urea Nitrogen 7 mg/dL (6-20); Calcium 9.4 mg/dL (8.5-10.5); Carbon Dioxide 26 mmol/L (22-29); Chloride 98 mmol/L (98-107); Creatinine Clr Calc Pharmacy 161.7097; Globulin 3.8 g/dL (1.3-4.6); Glomerular Filtration Rate 123.4 mL/min (90-130); Glucose 90 mg/dL (65-115); Lipase 27 U/L (13-60); Osmolality Calculated 280 mOsm/kg (285-295); Sodium 136 mmol/L (136-145); Total Bilirubin 0.9 mg/dL (0.15-1.2); Total Protein 8.5 g/dL (6.6-8.7)
[2024-04-21 07:42] LABS: Anion Gap 16.2 (5-19); Potassium 4.2 mmol/L (3.5-5.1)
[2024-04-21] MEDS: acetaminophen 500 mg Tablet 1000 MG PO (08:20)
[2024-04-21 08:27] VITALS: O2SAT 98
[2024-04-21 08:42] LABS: Add Urine Microscopic? NO; Charge for UA Resulting for Rev
[2024-04-21 08:51] LABS: Bilirubin Urine Neg (Negative); Blood Urine Neg (Negative); Glucose Urine UA Norm (Normal); Ketones Urine Negative (Negative); Leukocyte Esterase Urine Negative (Negative); Nitrate Urine Negative (Negative); Protein Urine Neg (Negative); Specific Gravity, Urine 1.025 (1.005-1.030); Urine Appearance Clear (CLEAR); Urine Color Yellow (Yellow); Urobilinogen Urine Norm (Negative); pH Urine 5 (5-7)
--- NOTE | 2024-04-21 09:20 | PC.NURSE ---
Dr. Taylor called Jordan from [facility] to talk to pt, pt is refusing to wait on Jordan, states he does not want to talk to anyone--he just wants to go.
--- NOTE | 2024-04-21 09:22 | PC.NURSE ---
IV removed by float nurse, catheter intact.
[2024-04-21 09:31] VITALS: O2SAT 98
== END 2024-04-21 09:32 | disposition home or self-care (01) ==
PROVIDERS: Emergency Provider Family Medicine
DX: R51.9 Headache, unspecified (principal); R10.11 Right upper quadrant pain
CPT/HCPCS: 71045; 73030; 74176; 80053; 81003; 83690; 85025; 93005; 99285

== ENCOUNTER 2024-04-27 22:09 | Emergency (ER) | payer MEDICAID, SELFPAY ==
[2024-04-27 22:13] VITALS: BP 139/75; PULSE 81; RESP 18; TEMP 36.7; O2SAT 100; BMI 33.9
--- NOTE | 2024-04-27 22:39 | ED.C_ITS ---
HPI - Psych General: Chief Complaint: Psychiatric Symptoms Stated Complaint: MHE Time Seen by Provider: 04/27/24 22:33 History of Present Illness: Patient presents to the ER with complaints of needing his Invega shot. Patient says he is approximately 30 to 34 days from his last shot right now. Patient gets 117 mg every 30 days. Per the chart the next in due date is 04/23/2024 before he would be 4 days late. Patient has no other complaints at this time. Patient denies suicidal homicidal ideation. Review of Systems General: Reports: 10 or more systems reviewed and unremarkable except in HPI and below PFSH ED PFSH: Medical History Depression Schizoaffective disorder, depressive type Alcohol abuse Physical Exam Const: COMMON NORMALS: no acute distress, average body habitus, patient oriented x3, no limitations, healthy appearing, alert and well nourished Neck/C-Spine: COMMON NORMALS: no JVD Chest: COMMONS NORMALS: normal inspection of the chest and normal palpation of entire chest wall Resp: COMMON NORMALS: normal respiratory effort, No retractions, No use of accessory muscles and clear to auscultation bilaterally AUSCULTATION: clear to auscultation bilaterally Cardio: COMMON NORMALS: no JVD, regular rate, regular rhythm, S1 normal heart sound present, S2 normal heart sound present, No gallops present (Cardio), No clicks present (Cardio), No murmurs present (Cardio) and No rub (Cardio) RATE: regular rate RHYTHM: regular rhythm HEART SOUNDS: S1 normal heart sound present and S2 normal heart sound present GI: COMMON NORMALS: Normal to inspection, nondistended, normoactive bowel sounds present, Soft to palpation, non-tender, No hepatosplenomegaly present and no masses PALPATION: Yes Soft to palpation and Yes No hepatosplenomegaly present Neuro: COMMON NORMALS: patient oriented x3 SENSORIUM/ORIENTATION: Yes alert Course Vital Signs: Vital signs: Vital Signs Temperature 98.1 F 04/27/24 22:13 Pulse Rate 81 04/27/24 22:13 Respiratory Rate 18 04/27/24 22:13 Blood Pressure 139/75 04/27/24 22:13 Pulse Oximetry 100 04/27/24 22:13 Oxygen Delivery Me thod Room Air 04/27/24 22:13 MDM - Psych Medical Decision Making Invega shot was ordered however it is locked up in pharmacy and we do not have access to it. Patient says he can come back tomorrow and actually get his shot from the pharmacy himself. Because he does have refills left. Lab Data I reviewed the patient's lab results. No radiology studies performed this visit Discharge Plan Discharge Patient Disposition: Home Clinical Impression: Schizoaffective disorder, depressive type Condition: Stable Prescriptions: No Action bisacodyl [Dulcolax (bisacodyl)] 5 mg tablet,delayed release (DR/EC) 5 mg PO BID PRN (Reason: constipation) Qty: 10 0RF prazosin 2 mg capsule 4 mg PO BEDTIME 30 Days Qty: 60 1RF Suboxone 8-2 mg film 1 film sublingual DAILY Qty: 30 0RF sertraline 50 mg Tablet 50 mg PO DAILY 30 Days Qty: 30 1RF quetiapine 50 mg Tablet Extended Release 24 Hr 100 mg PO 2000 30 Days Qty: 60 1RF Invega Sustenna 117 mg/0.75 mL syringe 117 mg IM Q30D 30 Days Qty: 0.75 2RF Rx Instructions: Injection due date 04/23/24 Discharge Orders: Discharge ED (Routine); Ordered 04/27/24 Ordered By: Joe Peter Activity Restrictions/Additional Instructions: Please return tomorrow to the pharmacy here on the hospital campus and seed cone picker your Invega shot. They probably will administer to their and pharmacy. Otherwise follow-up with your family practice doctor or psychiatrist as needed. Coding Level of Care Code ED Commercial Lines Insurance Agent for Jessica Pleitez
[2024-04-27 22:47] VITALS: BP 148/86; PULSE 86; RESP 14; O2SAT 100
== END 2024-04-27 23:03 | disposition home or self-care (01) ==
PROVIDERS: Emergency Provider Emergency Medicine
DX: F25.1 Schizoaffective disorder, depressive type (principal)
CPT/HCPCS: 99281

== ENCOUNTER 2024-06-09 14:27 | Emergency (ER) | payer MEDICAID, SELFPAY ==
[2024-06-09 14:44] VITALS: BP 122/80; PULSE 63; RESP 16; TEMP 36.7; O2SAT 100
--- NOTE | 2024-06-09 15:32 | ED_ITS ---
HPI - Headache General: Chief Complaint: Headache Stated Complaint: withdrawal from opiates Time Seen by Provider: 06/09/24 15:19 Source: patient Mode of arrival: ambulatory Limitations: no limitations History of Present Illness: 28-year-old male who was seen here yeste allie as he is out of the Suboxone he states he ran out 2 days ago and he states that he feels like he may be having some withdrawal he states he had some nausea some irritability he denies any SI or HI Associated symptoms: Deny chest pain, fever(s), nausea, rash or vomiting Review of Systems Const: Denies: fever(s), chills, body aches or change in appetite ENMT: Denies: throat pain or dental pain Card: Denies: chest pain Resp: Denies: dyspnea GI: Denies: abdominal pain, nausea, vomiting or diarrhea Musc: Denies: neck pain or back pain Skin/Breast: Denies: rash Neuro: Denies: headache(s) PFSH ED PFSH: Medical History Depression Schizoaffective disorder, depressive type Alcohol abuse Physical Exam Const: COMMON NORMALS: no acute distress, patient oriented x3 and healthy appearing HENMT: COMMON NORMALS: normocephalic and atraumatic HEAD & SCALP: normocephalic and atraumatic Neck/C-Spine: COMMON NORMALS: full ROM and supple Chest: COMMONS NORMALS: normal inspection of the chest Resp: COMMON NORMALS: normal respiratory effort Cardio: COMMON NORMALS: regular rate, regular rhythm and No murmurs present ( Cardio) RATE: regular rate RHYTHM: regular rhythm Extremity: COMMON NORMALS: normal to inspection and full ROM Neuro: COMMON NORMALS: patient oriented x3, moves all extremities and no focal motor deficits Psych: COMMON NORMALS: mental status grossly normal, Normal thought process present and cooperative THOUGHT PROCESS: Normal thought process present Skin: COMMON NORMALS: no rashes or lesions noted and no wounds GENERAL SKIN EXAM: no rashes or lesions noted Course Vital Signs: Vital signs: Vital Signs Temperature 98.0 F 06/09/24 14:44 Pulse Rate 63 06/09/24 14:44 Respiratory Rate 16 06/09/24 14:44 Blood Pressure 122/80 06/09/24 14:44 Pulse Oximetry 100 06/09/24 14:44 Oxygen Delivery Me thod Room Air 08/07/24 14:44 MDM - Headache Medical Decision Making Patient presents here wanting a refill for his Suboxone also with some nausea he has no signs of active withdrawal show will place him on Zofran for me to follow-up with a PCP or addiction clinic Medical Records I reviewed the patient's medical records. No radiology studies performed this visit Discharge Plan Discharge Patient Disposition: Home Clinical Impression: Medication refill Condition: Stable Prescriptions: New ondansetron 4 mg tablet,disintegrating 4 mg PO Q6H PRN (Reason: nausea and vomiting) Qty: 14 0RF No Action bisacodyl [Dulcolax (bisacodyl)] 5 mg tablet,delayed release (DR/EC) 5 mg PO BID PRN (Reason: constipation) Qty: 10 0RF prazosin 2 mg capsule 4 mg PO BEDTIME 30 Days Qty: 60 1RF Suboxone 8-2 mg film 1 film sublingual DAILY Qty: 30 0RF sertraline 50 mg Tablet 50 mg PO DAILY 30 Days Qty: 30 1RF quetiapine 50 mg Tablet Extended Release 24 Hr 100 mg PO 2000 30 Days Qty: 60 1RF Invega Sustenna 117 mg/0.75 mL syringe 117 mg IM Q30D 30 Days Qty: 0.75 2RF Rx Instructions: Injection due date 04/23/24 Discharge Orders: Discharge ED (Routine); Ordered 06/09/24 Ordered By: Tana Garcia Discharge Diet: Advance as tolerated Discharge Activity: Resume usual activity Patient Instructions: Medicine Refill (ED) Coding Level of Care Code ED Dynamics Ax Technical Architect for Jessica Pleitez
[2024-06-09 16:04] VITALS: BP 131/75; PULSE 92; RESP 16; O2SAT 100
[2024-06-09] MEDS: ondansetron 4 MG Tablet PO (16:06)
--- NOTE | 2024-06-10 07:47 | DCPLANNER ---
messaged el[facility] med to est PCP for er f/u
== END 2024-06-09 16:05 | disposition home or self-care (01) ==
PROVIDERS: Emergency Provider Emergency Medicine
DX: Z76.0 Encounter for issue of repeat prescription (principal)
CPT/HCPCS: 99283; Q0162

== ENCOUNTER 2024-06-10 00:33 | Emergency (ER) | payer MEDICAID, SELFPAY ==
[2024-06-10 00:40] VITALS: BP 157/91; PULSE 61; RESP 18; TEMP 37.1; O2SAT 100
[2024-06-10 00:41] VITALS: BMI 33.9
--- NOTE | 2024-06-10 00:55 | W.ED.GENADLT ---
HPI - General Adult General: Chief complaint: General Medical Stated complaint: opioid withdrawal Time Seen by Provider: 06/10/24 00:41 History of Present Illness: Patient presents to the ER send has been out of his Suboxone for 2 days and is going through withdrawals. Says having some mild nausea vomiting shakiness. He says he normally gets this filled through [facility] in [place] and has got his last fill about a week ago. He is not asking for Suboxone here but is something to help him through his withdrawals. Patient's cool calm collected and appears in no acute distress sitting comfortably on the cot with no outward signs of withdrawal. Review of Systems General: Reports: 10 or more systems reviewed and unremarkable except in HPI and below PFSH ED PFSH: Medical History Depression Schizoaffective disorder, depressive type Alcohol abuse Physical Exam Const: COMMON NORMALS: no acute distress, average body habitus, patient oriented x3, no limitations, healthy appearing, alert and well nourished HENMT: COMMON NORMALS: normocephalic, atraumatic, hearing grossly normal bilaterally, external ears normal, Normal external nose present and moist oral mucous membranes HEAD & SCALP: normocephalic and atraumatic NOSE: Normal external nose present EXTERNAL EAR: Yes external ears normal Eye: COMMON NORMALS: Equal, round and reactive pupils present, EOMs intact bilaterally, conjunctivae normal and no scleral icterus CONJUNCTIVA: Yes conjunctivae normal PUPIL: Yes Equal, round and reactive pupils present Neck/C-Spine: COMMON NORMALS: no JVD Chest: COMMONS NORMALS: normal inspection of the chest and normal palpation of entire chest wall Resp: COMMON NORMALS: normal respiratory effort, No retractions, No use of accessory muscles and clear to auscultation bilaterally AUSCULTATION: clear to auscultation bilaterally Cardio: COMMON NORMALS: no JVD, regular rate, regular rhythm, S1 normal heart sound present, S2 normal heart sound present, No gallops present (Cardio), No clicks present (Cardio), No murmurs present (Cardio) and No rub (Cardio) RATE: regular rate RHYTHM: regular rhythm HEART SOUNDS: S1 normal heart sound present and S2 normal heart sound present GI: COMMON NORMALS: Normal to inspection, nondistended, normoactive bowel sounds present, Soft to palpation, non-tender, No hepatosplenomegaly present and no masses PALPATION: Yes Soft to palpation and Yes No hepatosplenomegaly present Neuro: COMMON NORMALS: patient oriented x3 SENSORIUM/ORIENTATION: Yes alert Course Vital Signs: Vital signs: Vital Signs Temperature 98.7 F 06/10/24 00:40 Pulse Rate 61 06/10/24 00:40 Respiratory Rate 18 06/10/24 00:40 Blood Pressure 157/91 06/10/24 00:40 Pulse Oximetry 100 06/10/24 00:40 Oxygen Delivery Me thod Room Air 06/10/24 00:40 MDM - General Adult Medical Decision Making Prescription drug monitoring program was reviewed appears patient had a refill of a month supply of medicine approximately a week ago through a doctor in [place] and had it filled in [place]. Patient shows no signs of withdrawal at this time we will give him 1 dose of Zofran and discharge him. Medical Records I reviewed the patient's medical records. Lab Data I reviewed the patient's lab results. No radiology studies performed this visit Discharge Plan Discharge Patient Disposition: Home Clinical Impression: Medication refill Condition: Stable Prescriptions: No Action bisacodyl [Dulcolax (bisacodyl)] 5 mg tablet,delayed release (DR/EC) 5 mg PO BID PRN (Reason: constipation) Qty: 10 0RF prazosin 2 mg capsule 4 mg PO BEDTIME 30 Days Qty: 60 1RF Suboxone 8-2 mg film 1 film sublingual DAILY Qty: 30 0RF sertraline 50 mg Tablet 50 mg PO DAILY 30 Days Qty: 30 1RF quetiapine 50 mg Tablet Extended Release 24 Hr 100 mg PO 2000 30 Days Qty: 60 1RF Invega Sustenna 117 mg/0.75 mL syringe 117 mg IM Q30D 30 Days Qty: 0.75 2RF Rx Instructions: Injection due date 04/23/24 ondansetron 4 mg tablet,disintegrating 4 mg PO Q6H PRN (Reason: nausea and vomiting) Qty: 14 0RF Discharge Orders: Discharge ED (Routine); Ordered 06/10/24 Ordered By: Joe Peter Activity Restrictions/Additional Instructions: Please follow-up with your provider to get your Suboxone refilled. You have been given 1 dose of Zofran here to help you with the nausea. Please call their office when it opens up in later this morning. Coding Level of Care Code ED Freight And Passenger Agent for Jessica Pleitez
[2024-06-10 01:00] VITALS: BP 154/89; PULSE 69; RESP 16; O2SAT 100
[2024-06-10 01:15] VITALS: BP 145/88; PULSE 71; RESP 18; O2SAT 100
[2024-06-10] MEDS: ondansetron 4 MG Tablet PO (01:26)
== END 2024-06-10 01:27 | disposition home or self-care (01) ==
PROVIDERS: Emergency Provider Emergency Medicine
DX: Z76.0 Encounter for issue of repeat prescription (principal); Z79.891 Long term (current) use of opiate analgesic
CPT/HCPCS: 99283; Q0162

== ENCOUNTER 2024-06-11 22:03 | Emergency (ER) | payer MEDICAID, SELFPAY ==
[2024-06-11 22:09] VITALS: BP 147/85; PULSE 63; RESP 18; TEMP 36.7; O2SAT 100; BMI 33.9
--- NOTE | 2024-06-11 22:16 | ED_ITS ---
HPI - Anxiety General: Chief Complaint: Anxiety Stated Complaint: withdrawl symptoms panic attack Time Seen by Provider: 06/11/24 22:12 History of Present Illness: 28-year-old man who says he ran out of h is Suboxone is having withdrawal symptoms. He says he has been feeling nauseous. No altered mental status. No focal motor deficits. His vital signs are normal on presentation. Related Data Previous Rx's Medication Instructions Recorded bisacodyl 5 mg tablet,delayed 5 mg PO BID PRN constipation #10 04/12/24 release (Dulcolax (bisacodyl)) tabs buprenorphine 8 mg-naloxone 2 mg 1 film sublingual DAILY #30 ea 04/19/24 sublingual film (Suboxone) paliperidone palmitate 117 mg/0.75 117 mg (0.75 mL) IM Q30D 30 days 04/19/24 mL intramuscular syringe (Invega #0.75 mL Sustenna) prazosin 2 mg capsule 4 mg (2 x 2 mg) PO BEDTIME 30 days 04/19/24 #60 caps quetiapine 50 mg tablet,extended 100 mg (2 x 50 mg) PO 2000 30 days 04/19/24 release 24 hr #60 tabs sertraline 50 mg tablet 50 mg PO DAILY 30 days #30 tabs 04/19/24 ondansetron 4 mg disintegrating 4 mg PO Q6H PRN nausea and 06/09/24 tablet vomiting #14 tabs hydroxyzine HCl 50 mg tablet 50 mg PO BID PRN withdrawal 06/11/24 symptoms #30 tabs ondansetron 8 mg disintegrating 8 mg PO Q6H #14 tabs 06/11/24 tablet Allergies Allergy/AdvReac Type Severity Reaction Status Date / Time No Known Allergies Allergy Verified 06/09/24 14:50 Review of Systems Narrative: Constitutional symptoms: Negative except as documented in HPI. Skin symptoms: Negative except as documented in HPI. Eye symptoms: Negative except as documented in HPI. ENMT symptoms: Negative except as documented in HPI. Respiratory symptoms: Negative except as documented in HPI. Cardiovascular symptoms: Negative except as documented in HPI. Gastrointestinal symptoms: Negative except as documented in HPI. Genitourinary symptoms: Negative except as documented in HPI. Musculoskeletal symptoms: Negative except as documented in HPI. Neurologic symptoms: Negative except as documented in HPI. Psychiatric symptoms: Negative except as documented in HPI. Endocrine symptoms: Negative except as documented in HPI. PFSH ED PFSH: Medical History Depression Schizoaffective disorder, depressive type Alcohol abuse Physical Exam Narrative: EXAM NARRATIVE: General: Alert, no acute distress. Skin: Warm, patient is slightly diaphoretic. Head: Normocephalic, atraumatic. Neck: Supple, trachea midline. Eye: Extraocular movements are intact. Ears, nose, mouth and throat: mucosa moist. Cardiovascular: Regular, Normal peripheral perfusion. Respiratory: Lungs are clear to auscultation, respirations are non-labored, breath sounds are equal, Symmetrical chest wall expansion. Gastrointestinal: Soft, Nontender, Non distended Musculoskeletal: Normal ROM, no deformity. Neurological: Alert and oriented, No focal neurological deficit observed. Psychiatric: Cooperative, appropriate mood & affect. Course Vital Signs: Vital signs: Vital Signs Temperature 98.1 F 06/11/24 22:09 Pulse Rate 63 06/11/24 22:09 Respiratory Rate 18 06/11/24 22:09 Blood Pressure 147/85 06/11/24 22:09 Pulse Oximetry 100 06/11/24 22:09 Oxygen Delivery Me thod Room Air 06/11/24 22:09 MDM - Anxiety Medical Decision Making Assessment and plan: Opioid withdrawal ? IM Ativan here. Hydroxyzine and Zofran for home. - Discharged home - Discussed plan with patient. Answered any questions. - Evaluation and treatment of this problem were appropriate in the emergency setting. No radiology studies performed this visit Discharge Plan Discharge Patient Disposition: Home Clinical Impression: Opioid withdrawal Condition: Stable Prescriptions: New hydroxyzine HCl 50 mg tablet 50 mg PO BID PRN (Reason: withdrawal symptoms) Qty: 30 0RF ondansetron 8 mg tablet,disintegrating 8 mg PO Q6H Qty: 14 0RF Rx Instructions: Take 1/2-1 tab every 6 hours as needed for nausea and vomiting No Action bisacodyl [Dulcolax (bisacodyl)] 5 mg tablet,delayed release (DR/EC) 5 mg PO BID PRN (Reason: constipation) Qty: 10 0RF prazosin 2 mg capsule 4 mg PO BEDTIME 30 Days Qty: 60 1RF Suboxone 8-2 mg film 1 film sublingual DAILY Qty: 30 0RF sertraline 50 mg Tablet 50 mg PO DAILY 30 Days Qty: 30 1RF quetiapine 50 mg Tablet Extended Release 24 Hr 100 mg PO 2000 30 Days Qty: 60 1RF Invega Sustenna 117 mg/0.75 mL syringe 117 mg IM Q30D 30 Days Qty: 0.75 2RF Rx Instructions: Injection due date 04/23/24 ondansetron 4 mg tablet,disintegrating 4 mg PO Q6H PRN (Reason: nausea and vomiting) Qty: 14 0RF Discharge Orders: Discharge ED (Routine); Ordered 06/11/24 Ordered By: Becca Lopez Discharge Diet: Usual diet Discharge Activity: Increase activity as tolerated Patient Instructions: Opioid Withdrawal (ED) Activity Restrictions/Additional Instructions: Thank you for choosing [facility] for your healthcare needs today. Please realize this is an emergency room and that we are providing you with a medical screening exam and this may not be complete and all inclusive of all the testing and or work up that you may need to determine your ailment or severity of your illness. You have been screened and evaluated and felt safe for discharge. Health conditions do change or evolve sometimes and as such it is important that you follow up with your Primary Doctor to be re checked, 3-5 days is a general good time frame for follow up. You are always welcome to return to the ED for re assessment if your symptoms are worsening or you have new concerns Coding Level of Care Code ED Jewelry Racker for Jessica Pleitez
[2024-06-11] MEDS: LORazepam 2 mg/mL INJ 1 mL IM (22:22)
[2024-06-11 22:43] VITALS: BP 147/85; PULSE 71; RESP 16; O2SAT 100
== END 2024-06-11 22:44 | disposition home or self-care (01) ==
PROVIDERS: Emergency Provider Emergency Medicine
DX: F11.23 Opioid dependence with withdrawal (principal)
CPT/HCPCS: 96372; 99284; J2060

== ENCOUNTER 2024-06-12 23:12 | Emergency (ER) | payer MEDICAID, SELFPAY ==
[2024-06-12 23:15] VITALS: BP 126/76; PULSE 75; RESP 17; TEMP 36.9; O2SAT 99; BMI 33.9
--- NOTE | 2024-06-12 23:54 | W.ED.ANXIETY ---
HPI - Anxiety General: Chief Complaint: Anxiety Stated Complaint: panic attack withdrawal symptoms Time Seen by Provider: 06/12/24 23:52 History of Present Illness: 28-year-old male patient comes in today with increased anxiety and difficulty sleeping. Patient reports that he has ran out of his Suboxone. Patient has been into the ER 3 times over the last few days for increased anxiety. Patient had first tried to get his prescription filled but we would not be able to fill it for him. Patient was given some Zofran and hydroxyzine which he reports does not help his symptoms. Patient appears nontoxic. Patient appears in no pain. Patient reports no vomiting but does report nausea. Patient denies suicidal homicidal thought. Related Data Previous Rx's Medication Instructions Recorded bisacodyl 5 mg tablet,delayed 5 mg PO BID PRN constipation #10 04/12/24 release (Dulcolax (bisacodyl)) tabs buprenorphine 8 mg-naloxone 2 mg 1 film sublingual DAILY #30 ea 04/19/24 sublingual film (Suboxone) paliperidone palmitate 117 mg/0.75 117 mg (0.75 mL) IM Q30D 30 days 04/19/24 mL intramuscular syringe (Invega #0.75 mL Sustenna) prazosin 2 mg capsule 4 mg (2 x 2 mg) PO BEDTIME 30 days 04/19/24 #60 caps quetiapine 50 mg tablet,extended 100 mg (2 x 50 mg) PO 2000 30 days 04/19/24 release 24 hr #60 tabs sertraline 50 mg tablet 50 mg PO DAILY 30 days #30 tabs 04/19/24 ondansetron 4 mg disintegrating 4 mg PO Q6H PRN nausea and 06/09/24 tablet vomiting #14 tabs hydroxyzine HCl 50 mg tablet 50 mg PO BID PRN withdrawal 06/11/24 symptoms #30 tabs ondansetron 8 mg disintegrating 8 mg PO Q6H #14 tabs 06/11/24 tablet Allergies Allergy/AdvReac Type Severity Reaction Status Date / Time No Known Allergies Allergy Verified 06/12/24 23:18 Review of Systems General: Reports: 10 or more systems reviewed and unremarkable except in HPI and below PFSH ED PFSH: Medical History Depression Schizoaffective disorder, depressive type Alcohol abuse Physical Exam Const: COMMON NORMALS: alert HENMT: COMMON NORMALS: normocephalic HEAD & SCALP: normocephalic Neck/C-Spine: COMMON NORMALS: full ROM Resp: COMMON NORMALS: normal respiratory effort Cardio: COMMON NORMALS: regular rate RATE: regular rate GI: COMMON NORMALS: Soft to palpation PALPATION: Yes Soft to palpation Extremity: COMMON NORMALS: normal to inspection Neuro: SENSORIUM/ORIENTATION: Yes alert Skin: COMMON NORMALS: turgor normal GENERAL SKIN EXAM: turgor normal Course Vital Signs: Vital signs: Vital Signs Temperature 98.4 F 06/12/24 23:15 Pulse Rate 75 06/12/24 23:15 Respiratory Rate 17 06/12/24 23:15 Blood Pressure 126/76 06/12/24 23:15 Pulse Oximetry 99 06/12/24 23:15 Oxygen Delivery Me thod Room Air 06/12/24 23:15 MDM - Anxiety Medical Decision Making 28-year-old male patient comes in [facility] with complaints of anxiety and difficulty sleeping. Patient reports it is due to him being without his Suboxone. Patient appears nontoxic. Patient is in no signs of severe distress. Patient is call and cooperative. Differential diagnosis includes but not limited to drug-seeking behavior, substance use disorder, generalized anxiety disorder, panic disorder. Patient was given 2 mg of lorazepam p.o. Patient was discharged back to his residence with recommendations for further treatment and follow-up. No radiology studies performed this visit Discharge Plan Discharge Patient Disposition: Home Clinical Impression: Anxiety, Substance use disorder Condition: Stable Prescriptions: No Action bisacodyl [Dulcolax (bisacodyl)] 5 mg tablet,delayed release (DR/EC) 5 mg PO BID PRN (Reason: constipation) Qty: 10 0RF prazosin 2 mg capsule 4 mg PO BEDTIME 30 Days Qty: 60 1RF Suboxone 8-2 mg film 1 film sublingual DAILY Qty: 30 0RF sertraline 50 mg Tablet 50 mg PO DAILY 30 Days Qty: 30 1RF quetiapine 50 mg Tablet Extended Release 24 Hr 100 mg PO 2000 30 Days Qty: 60 1RF Invega Sustenna 117 mg/0.75 mL syringe 117 mg IM Q30D 30 Days Qty: 0.75 2RF Rx Instructions: Injection due date 04/23/24 ondansetron 4 mg tablet,disintegrating 4 mg PO Q6H PRN (Reason: nausea and vomiting) Qty: 14 0RF hydroxyzine HCl 50 mg tablet 50 mg PO BID PRN (Reason: withdrawal symptoms) Qty: 30 0RF ondansetron 8 mg tablet,disintegrating 8 mg PO Q6H Qty: 14 0RF Rx Instructions: Take 1/2-1 tab every 6 hours as needed for nausea and vomiting Discharge Orders: Discharge ED (Routine); Ordered 06/13/24 Ordered By: Yobani Scott Discharge Diet: Usual diet Discharge Activity: Increase activity as tolerated Patient Instructions: Polysubstance Use Disorder (ED) Activity Restrictions/Additional Instructions: Continue with routine prescribed meds. Follow-up with refund specialist for further evaluation and treatment. Coding Level of Care Code ED Senior Internet Sales Consultant for Jessica Pleitez
[2024-06-13] MEDS: LORazepam 2 mg Tablet PO (00:26)
[2024-06-13 00:32] VITALS: PULSE 70; RESP 18; O2SAT 97
== END 2024-06-13 00:33 | disposition home or self-care (01) ==
PROVIDERS: Emergency Provider Nurse Practitioner Family
DX: F41.9 Anxiety disorder, unspecified (principal); F19.10 Other psychoactive substance abuse, uncomplicated
CPT/HCPCS: 99283

== ENCOUNTER 2024-06-14 01:41 | Emergency (ER) | payer MEDICAID, SELFPAY ==
[2024-06-14 01:43] VITALS: BP 114/73; PULSE 73; RESP 16; TEMP 36.5; O2SAT 99; BMI 33.9
--- NOTE | 2024-06-14 03:26 | ED_ITS ---
HPI - Anxiety General: Chief Complaint: Anxiety Stated Complaint: anixety Time Seen by Provider: 06/14/24 03:11 History of Present Illness: 28-year-old male who had a panic attack at home, after waking up with a headache, and some left-sided upper and lower extremity numbness. He has not had weakness. Numbness is resolved. Headache is improved. He was asleep, resting comfortably in his room on my examination. He notes that he does have a long history of headaches, sometimes with complication of paresthesias, and had this not too long ago. Symptoms resolved at that point as well. Related Data Previous Rx's Medication Instructions Recorded bisacodyl 5 mg tablet,delayed 5 mg PO BID PRN constipation #10 04/12/24 release (Dulcolax (bisacodyl)) tabs buprenorphine 8 mg-naloxone 2 mg 1 film sublingual DAILY #30 ea 04/19/24 sublingual film (Suboxone) paliperidone palmitate 117 mg/0.75 117 mg (0.75 mL) IM Q30D 30 days 04/19/24 mL intramuscular syringe (Invega #0.75 mL Sustenna) prazosin 2 mg capsule 4 mg (2 x 2 mg) PO BEDTIME 30 days 04/19/24 #60 caps quetiapine 50 mg tablet,extended 100 mg (2 x 50 mg) PO 2000 30 days 04/19/24 release 24 hr #60 tabs sertraline 50 mg tablet 50 mg PO DAILY 30 days #30 tabs 04/19/24 ondansetron 4 mg disintegrating 4 mg PO Q6H PRN nausea and 06/09/24 tablet vomiting #14 tabs hydroxyzine HCl 50 mg tablet 50 mg PO BID PRN withdrawal 06/11/24 symptoms #30 tabs ondansetron 8 mg disintegrating 8 mg PO Q6H #14 tabs 06/11/24 tablet Allergies Allergy/AdvReac Type Severity Reaction Status Date / Time No Known Allergies Allergy Verified 06/12/24 23:18 [facility] ED PFSH: Medical History Depression Schizoaffective disorder, depressive type Alcohol abuse Physical Exam Const: COMMON NORMALS: no acute distress GENERAL APPEARANCE: cooperative and lethargic (Mildly); not ill appearing and not frail appearing ORIENTATION/CONSCIOUSNESS: Yes let hargic (Mildly) HENMT: COMMON NORMALS: normocephalic, atraumatic and Normal external nose present HEAD & SCALP: normocephalic and atraumatic FACE & SINUS: normal facial exam and face symmetric NOSE: Normal external nose present Eye: COMMON NORMALS: Equal, round and reactive pupils present and EOMs intact bilaterally PUPIL: Yes Equal, round and reactive pupils present Neck/C-Spine: GENERAL: Yes trachea midline Chest: CHEST: Yes Symmetrical chest wall rise Resp: COMMON NORMALS: normal respiratory effort, No retractions, No use of accessory muscles and clear to auscultation bilaterally AUSCULTATION: clear to auscultation bilaterally Cardio: COMMON NORMALS: regular rate and regular rhythm RATE: regular rate RHYTHM: regular rhythm GI: COMMON NORMALS: Normal to inspection, nondistended, normoactive bowel sounds present Extremity: COMMON NORMALS: no pedal edema Neuro: JEROME COMA SCALE: document GCS findings [place] coma scale eye opening: Spontaneous [place] coma scale verbal response: Orientated [place] coma scale motor response: Obey commands [place] coma scale total score: 15 SENSORIUM/ORIENTATION: Yes lethargic (Mildly) CRANIAL NERVES: Yes CN normal except as noted COORDINATION/BALANCE: [id number] test normal and heel-to- mora test normal SPEECH: speech normal SENSORY EXAM: Yes extremities (intact) MOTOR EXAM: Pronator motor function not present and Normal motor muscle tone present throughout COORDINATION: [id number] test normal and [id number] test normal Psych: COMMON NORMALS: speech normal SPEECH: Yes normal speech Skin: COMMON NORMALS: no rashes or lesions noted GENERAL SKIN EXAM: no rashes or lesions noted Course Vital Signs: Vital signs: Vital Signs Temperature 97.7 F 06/14/24 01:43 Pulse Rate 80 06/14/24 03:58 Respiratory Rate 18 06/14/24 03:58 Blood Pressure 114/73 06/14/24 01:43 Pulse Oximetry 97 06/14/24 03:58 Oxygen Delivery Me thod Room Air 06/14/24 01:43 MDM - Anxiety Medical Decision Making Mr. Jaime presents with panic attack. He has been seen 4 times in the last 4 days. All with similar complaints of anxiety. He has received benzodiazepines prior to times. As his panic attack is resolved, and he is resting comfortably, sleeping on my arrival to the room, he will not be receiving benzodiazepines this morning. His symptoms of paresthesia to the left upper and lower extremities are resolved. He has a long history of headaches for which she usually takes Tylenol. His complaint for last couple of days is that he ran out of his Suboxone and was experiencing withdrawal symptoms, but this is 4 days into being out of his Suboxone, so any withdrawal symptoms would largely be finished by now. Medically, he is quite stable. As his symptoms of paresthesias are resolved, I do not see benefit in imaging at this time. He will be discharged home. No radiology studies performed this visit Discharge Plan Discharge Patient Disposition: Home Clinical Impression: Panic disorder, Headache Condition: Stable Prescriptions: No Action bisacodyl [Dulcolax (bisacodyl)] 5 mg tablet,delayed release (DR/EC) 5 mg PO BID PRN (Reason: constipation) Qty: 10 0RF prazosin 2 mg capsule 4 mg PO BEDTIME 30 Days Qty: 60 1RF Suboxone 8-2 mg film 1 film sublingual DAILY Qty: 30 0RF sertraline 50 mg Tablet 50 mg PO DAILY 30 Days Qty: 30 1RF quetiapine 50 mg Tablet Extended Release 24 Hr 100 mg PO 2000 30 Days Qty: 60 1RF Invega Sustenna 117 mg/0.75 mL syringe 117 mg IM Q30D 30 Days Qty: 0.75 2RF Rx Instructions: Injection due date 04/23/24 ondansetron 4 mg tablet,disintegrating 4 mg PO Q6H PRN (Reason: nausea and vomiting) Qty: 14 0RF hydroxyzine HCl 50 mg tablet 50 mg PO BID PRN (Reason: withdrawal symptoms) Qty: 30 0RF ondansetron 8 mg tablet,disintegrating 8 mg PO Q6H Qty: 14 0RF Rx Instructions: Take 1/2-1 tab every 6 hours as needed for nausea and vomiting Discharge Orders: Discharge ED (Routine); Ordered 06/14/24 Ordered By: Nathaniel Rubio Patient Instructions: Panic Disorder (ED), Opioid Safety, Pain Management Activity Restrictions/Additional Instructions: On clinical examination, you do not appear to have any signs of acute stroke related to your episode of numbness to the left side. Panic attack you may have had at home, appears to be resolved. In the future, try not to utilize EMS transport services (the ambulance) for known panic attacks if at all possible. Follow-up with your doctor this week. Coding Level of Care Code ED Vice President Safety for Jessica Pleitez
[2024-06-14 03:58] VITALS: PULSE 80; RESP 18; O2SAT 97
== END 2024-06-14 03:55 | disposition home or self-care (01) ==
PROVIDERS: Emergency Provider Emergency Medicine
DX: F41.0 Panic disorder [episodic paroxysmal anxiety] (principal); R51.9 Headache, unspecified
CPT/HCPCS: 99281